=== PATIENT | female | born 1940 | race Caucasian/White ===

== ENCOUNTER 2018-10-22 21:31 | Inpatient (IN) ==
[2018-10-22] MEDS ORDERED: ONDANSETRON 4 MG/2 ML VIAL IV ONE (21:46)
[2018-10-22] MEDS ORDERED: 0.9 % SODIUM CHLORIDE 1,000 ML IV ONE (21:46)
--- NOTE | 2018-10-22 22:02 | Emergency Department Note ---
Abdominal Pain HPI - General Chief Complaint: Constipation Stated Complaint: suspects constipation Time Seen by Provider: 10/22/18 21:46 Source: patient, family Mode of arrival: wheelchair Limitations: no limitations - History of Present Illness HPI Narrative: 78-year-old female with a one-week history of constipation belly pain. She is a diabetic and blood sugars have been in the 150s and 60s at home, here is 213. No fever but is having nausea and vomiting. Not much appetite. Tried milk of magnesia without success - Related Data Home Medications Medication Instructions Recorded Confirmed butalbital-acetaminophen PO PRN 03/28/18 09/19/18 Previous Rx's Medication Instructions Recorded blood-glucose meter See Dose Instructions .ROUTE 02/17/18 .MEDSUPPLY #1 each lancets See Dose Instructions .ROUTE 02/17/18 .MEDSUPPLY #100 each metoprolol succinate ER 50 mg 50 mg PO BID #180 tab 03/08/18 tablet,extended release 24 hr warfarin 5 mg tablet See Rx Instructions .ROUTE 08/17/18 .COMPLEX #30 tab blood sugar diagnostic strips 1 strip MISCELLANE .daily #100 08/26/18 strip empagliflozin 25 mg tablet 25 mg PO QAM #30 tab 09/19/18 doxepin 10 mg capsule 10 mg PO QHS #30 cap 10/18/18 Allergies Allergy/AdvReac Type Severity Reaction Status Date / Time codeine AdvReac Mild Agitated Verified 10/22/18 21:39 Review of Systems All systems ED: reviewed and negative except as stated. Abdominal Pain PMH - Past Medical History Attestation: Yes: The following information was validated with the patient. PMF Narrative: Family History (Last Reviewed 05/10/18 @ 15:42 by Young Blount MD) Father Type 2 diabetes mellitus Heart disease Stroke Sister Cancer Brother Cancer Medical History (Last Reviewed 05/10/18 @ 15:42 by Young Blount MD) Menopausal vasomotor syndrome (Chronic) Diverticulitis (Acute) Depression (Chronic) Type 2 diabetes mellitus, without long-term current use of insulin (Chronic) Acute ischemic colitis (Acute) Deep vein thrombosis (DVT) (Chronic) Diabetes mellitus (Chronic) H/O unilateral nephrectomy (Resolved) [facility] current use of anticoagulant therapy (Chronic) Essential hypertension (Chronic) Tobacco use disorder (Chronic) Chronic obstructive pulmonary disease (Chronic) Deep vein thrombosis (Chronic) Hormone replacement therapy (Chronic) Migraine (Chronic) Factor V Leiden (Chronic) Degenerative arthritis (Chronic) Dyslipidemia (Chronic) Nonorganic sleep disorder (Chronic) Edema (Chronic) Solitary kidney (Chronic) Low back pain (Chronic) Cervical pain (neck) (Chronic) 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) High risk medication use (Chronic) Breast lump (Resolved) Cyst of left kidney (Resolved) Screening for osteoporosis (Resolved) Past Surgical History (Last Reviewed 05/10/18 @ 15:42 by Young Blount MD) S/P total knee arthroplasty (Acute) S/P CHAPO-BSO (Resolved) H/O repair of left rotator cuff (Resolved) History of hernia repair (Resolved) Hx of colonoscopy (Resolved 10/17/12) Previous back surgery (Resolved) Hx of arthroscopy of right knee (Resolved) History of arthroplasty of left knee (Resolved) History of total hysterectomy (Acute) History of cataract surgery (Chronic ~04/2016) - Social History Smoking status: Former smoker Physical Exam Overweight female no acute distress. No cephalic atraumatic. Conjunctive are clear sclerae nonicteric. No nasal discharge or congestion. Oropharynx pink and moist. Dentures. Neck is supple without lymphadenopathy thyromegaly or carotid bruit. Heart is regular rate and rhythm no murmur appreciated. Lungs are clear to auscultation bilaterally without wheezes rales rhonchi or respiratory distress. Abdomen is soft but tender especially in the epigastric area. No rigidity or guarding. No pedal edema. Alert oriented able to answer questions appropriately Limitations: no limitations Course Vital Signs Temperature 97.4 F 10/22/18 21:35 Pulse Rate 101 H 10/22/18 21:35 Respiratory Rate 20 10/22/18 21:35 Blood Pressure 128/77 10/22/18 21:35 Pulse Oximetry (%) 93 10/22/18 21:35 Temperature 97.4 F 10/22/18 21:35 Pulse Rate 88 10/22/18 23:32 Respiratory Rate 23 H 10/22/18 22:27 Blood Pressure 133/70 10/22/18 23:32 Pulse Oximetry (%) 91 10/22/18 23:32 Abdominal Pain - Lab Data Lab results reviewed: Yes I reviewed the patient's lab results. Result diagrams: 10/22/18 21:50 10/22/18 21:50 Lab Results 10/22/18 10/22/18 10/22/18 Range/Units 21:50 21:50 21:50 WBC 17.3 H (4.5-11.0) K/mcL RBC 5.48 H (4.00-5.20) M/mcL Hgb 15.2 H (12.0-15.0) g/dL Hct 45.0 (36.0-48.0) % MCV 82.1 (80.0-100.0) fL MCH 27.7 (26.0-34.0) pg MCHC 33.7 (31.0-36.0) g/dL RDW 14.1 (11.5-14.5) % Plt Count 365 (140-440) K/mcL MPV 10.2 (7.4-10.4) fL Gran % 87.9 H (38.0-78.0) % Lymph % (Auto) 8.3 L (15.5-49.0) % [place] % (Auto) 2.4 (1.0-12.0) % Eos % (Auto) 0.5 (0.0-7.0) % Baso % (Auto) 0.9 (0.0-2.0) % Gran # 15.2 H (1.8-8.0) K/mcL Lymph # (Auto) 1.4 L (1.5-4.8) K/mcL [place] # (Auto) 0.4 (0.1-0.9) K/mcL Eos # (Auto) 0.1 (0.0-0.7) K/mcL Baso # (Auto) 0.2 (0.0-0.3) K/mcL PT 23.2 H (11.9-14.5) sec INR 2.1 H (0.9-1.1) Sodium 133 (133-145) mmol/L Potassium 4.1 (3.3-5.1) mmol/L Chloride 93 L (96-108) mmol/L Carbon Dioxide 18 L (22-30) mmol/L Anion Gap 22.0 H (8-16) BUN 21 (8-23) mg/dl Creatinine 1.2 H (0.6-1.1) mg/dl GFR Calculation 44 Glucose 219 H (70-105) mg/dL Calcium 9.5 (8.6-10.4) mg/dl Total Bilirubin 0.7 (0.0-1.0) mg/dL AST 16 (0-37) U/l ALT 15 (0-40) U/l Alkaline Phosphatase 137 H (39-117) U/L Total Protein 8.3 (5.9-8.4) gm/dL Albumin 3.8 (3.2-5.2) gm/dL Globulin 4.5 H (2.2-3.7) gm/dL Albumin/Globulin Ratio 0.8 L (1.0-2.3) Amylase 28 (28-100) U/L Lipase 26 (7-60) U/L Urine Color Urine Appearance Urine pH (5.0-9.0) Ur Specific [place] (1.000-1.035) Urine Protein (NEG) mg/dL Urine Glucose (UA) (NEG) mg/dL Urine Ketones (NEG) mg/dL Urine Occult Blood (<0.03) mg/dL Urine Nitrate (NEG) Urine Bilirubin (NEG) mg/dL Urine Urobilinogen (NEG) mg/dL Ur Leukocyte Esterase (NEG) /uL Urine RBC (0-1) /hpf Urine WBC (0-4) /hpf Ur Squamous Epith Cells (0-4) /hpf Amorphous Crystals (0) /hpf Urine Bacteria (0) /hpf Urine Mucus (0) /hpf Ur Culture Indicated? 10/23/18 Range/Units 00:05 WBC (4.5-11.0) K/mcL RBC (4.00-5.20) M/mcL Hgb (12.0-15.0) g/dL Hct (36.0-48.0) % MCV (80.0-100.0) fL MCH (26.0-34.0) pg MCHC (31.0-36.0) g/dL RDW (11.5-14.5) % Plt Count (140-440) K/mcL MPV (7.4-10.4) fL Gran % (38.0-78.0) % Lymph % (Auto) (15.5-49.0) % [place] % (Auto) (1.0-12.0) % Eos % (Auto) (0.0-7.0) % Baso % (Auto) (0.0-2.0) % Gran # (1.8-8.0) K/mcL Lymph # (Auto) (1.5-4.8) K/mcL [place] # (Auto) (0.1-0.9) K/mcL Eos # (Auto) (0.0-0.7) K/mcL Baso # (Auto) (0.0-0.3) K/mcL PT (11.9-14.5) sec INR (0.9-1.1) Sodium (133-145) mmol/L Potassium (3.3-5.1) mmol/L Chloride (96-108) mmol/L Carbon Dioxide (22-30) mmol/L Anion Gap (8-16) BUN (8-23) mg/dl Creatinine (0.6-1.1) mg/dl GFR Calculation Glucose (70-105) mg/dL Calcium (8.6-10.4) mg/dl Total Bilirubin (0.0-1.0) mg/dL AST (0-37) U/l ALT (0-40) U/l Alkaline Phosphatase (39-117) U/L Total Protein (5.9-8.4) gm/dL Albumin (3.2-5.2) gm/dL Globulin (2.2-3.7) gm/dL Albumin/Globulin Ratio (1.0-2.3) Amylase (28-100) U/L Lipase (7-60) U/L Urine Color Yellow Urine Appearance Hazy Urine pH 5.0 (5.0-9.0) Ur Specific [place] 1.025 (1.000-1.035) Urine Protein Neg (NEG) mg/dL Urine Glucose (UA) >=500 A (NEG) mg/dL Urine Ketones 20 A (NEG) mg/dL Urine Occult Blood 0.03 A (<0.03) mg/dL Urine Nitrate Pos A (NEG) Urine Bilirubin Neg (NEG) mg/dL Urine Urobilinogen Neg (NEG) mg/dL Ur Leukocyte Esterase 25 A (NEG) /uL Urine RBC 1 (0-1) /hpf Urine WBC 12 H (0-4) /hpf Ur Squamous Epith Cells < 1 (0-4) /hpf Amorphous Crystals Few A (0) /hpf Urine Bacteria Few A (0) /hpf Urine Mucus Few (0) /hpf Ur Culture Indicated? Yes - Radiology Data Radiology results reviewed: Yes I reviewed the patient's radiology results. X-ray of the abdomen shows small stretch of dilated small bowel with air-fluid level. CT scan ordered to further sort this out CT scan of the abdomen pelvis without contrast shows inflammation around about an 8 cm segment of sigmoid colon which likely is diverticulitis. Adjacent abscess noted approximately 2 x 2 cm with localized perforation. No free air is noted. Concern for partial obstruction proximal to this. See full report Disposition Pt seen by TRADING FLOOR OPERATOR/PA only: No Clinical Impression: Diverticulitis, Perforation of colon, Colonic diverticular abscess, Colonic pseudoobstruction Summary: Workup ordered with laboratory and x-ray. Treatment started with IV fluids and Zofran X-ray shows dilated small bowel loops with air-fluid levels so CT scan with contrast is initially ordered. However patient has only one kidney and so this is changed to without contrast CT scan shows concerning findings above. I did discuss this case with Dr. Young Blount, general surgeon, who agreed to accept patient for further evaluation and management in the hospital. He recommended we make her n.p.o. and start antibi otics for the diverticulitis-metronidazole and fluoroquinolone. We will keep her n.p.o. except for ice chips and popsicles. Hold her Coumadin. I wrote transition orders Disposition: Xfer As Inpt ([facility]) Condition: Serious Referrals: Marcus Russo MD [Primary Care Provider] -
[2018-10-22 23:12] LABS: Basophils # (Auto) 0.2 K/mcL (0.0-0.3); Basophils % (Auto) 0.9 % (0.0-2.0); Eosinophils # (Auto) 0.1 K/mcL (0.0-0.7); Eosinophils % (Auto) 0.5 % (0.0-7.0); Granulocytes % (Auto) 87.9 % (38.0-78.0); Lymphocytes # (Auto) 1.4 K/mcL (1.5-4.8); Lymphocytes % (Auto) 8.3 % (15.5-49.0); Mean Cell Volume 82.1 fL (80.0-100.0); Mean Corpuscular HGB Conc 33.7 g/dL (31.0-36.0); Monocytes # (Auto) 0.4 K/mcL (0.1-0.9); Monocytes % (Auto) 2.4 % (1.0-12.0); Platelet Count 365 K/mcL (140-440); RBC 5.48 M/mcL (4.00-5.20); Red Cell Distribution Width 14.1 % (11.5-14.5)
[2018-10-22 23:28] LABS: ALT/SGPT 15 U/l (0-40); Albumin 3.8 gm/dL (3.2-5.2); Albumin/Globulin Ratio 0.8 (1.0-2.3); Alkaline Phosphatase 137 U/L (39-117); Amylase 28 U/L (28-100); Blood Urea Nitrogen 21 mg/dl (8-23); Lipase 26 U/L (7-60)
[2018-10-23 00:51] LABS: Appearance,Urine HAZY; Bacteria,Urine FEW /hpf (0); Bilirubin,Urine NEG (NEG); Color,Urine YELLOW; Glucose,Urine (UA) >=500 mg/dL (NEG); Leukocyte Esterase,Urine 25 /uL (NEG); Mucus,Urine FEW /hpf (0); Protein,Urine NEG (NEG); Specific Gravity,Urine 1.025 (1.000-1.035); Urine Amorphous Crystals FEW /hpf (0); Urine Blood 0.03 mg/dL (<0.03); Urine RBC 1 /hpf (0-1); Urine Squamous Epithelial Cell < 1 /hpf (0-4); Urine WBC 12 /hpf (0-4); Urobilinogen,Urine NEG (NEG)
[2018-10-23] MEDS ORDERED: PROMETHAZINE 25 MG/ML VIAL IM PRN (01:19)
[2018-10-23] MEDS ORDERED: metroNIDAZOLE 500 MG/100 ML BAG IV SCH (01:30)
[2018-10-23] MEDS: 0.9 % SODIUM CHLORIDE 1,000 ML IV SCH ×4 (01:30→21:12)
[2018-10-23] MEDS: ONDANSETRON 4 MG/2 ML VIAL IV PRN ×2 (01:45→08:25)
[2018-10-23] MEDS: LEVOFLOXACIN 500 MG/100 ML BAG IV SCH ×2 (03:03→17:57)
[2018-10-23] MEDS: DOXEPIN 10 MG CAPSULE PO SCH ×2 (03:06→20:53)
--- NOTE | 2018-10-23 07:53 | Cat Scan Report ---
CLINICAL INFORMATION: Constipation COMPARISON: Plain film examination dated 10/22/2018. Previous CT scan dated 04/01/2018. TECHNIQUE: Axial images were obtained through the abdomen and pelvis. Sagittally and coronally reformatted images. The patient refused intravenous contrast material. FINDINGS: Dilated ascending colon, transverse colon, descending colon. The colon is dilated and fluid-filled. No evidence for appendicitis. There is focal abnormality of the mid sigmoid colon. There are some diverticula within the sigmoid colon there is a masslike density within the mid sigmoid colon and pericolonic inflammatory change. There is some gas which may be intramural. Findings may be due to diverticulitis but malignancy is not excluded. Follow-up examination is recommended. Follow-up CT scan with intravenous and oral contrast material may be helpful. Colonoscopy would also be appropriate. There is no discrete abscess. There is no pneumoperitoneum. No significant free pelvic fluid. There is gas within the urinary bladder. Urinary bladder is mildly distended. Clinical correlation for previous catheterization recommended. In the absence of catheterization a colovesical fistula is possible. Small bowel is mildly prominent and fluid-filled. Findings are consistent with colonic obstruction at the level of the sigmoid colon. Lung bases are negative. No parenchymal infiltrate or mass. Previous left nephrectomy. There is a right upper pole renal cyst. This is unchanged since 04/01/2018. Right renal collecting system is prominent. The proximal right ureter is dilated. An obstructing ureteral stone is not identified. Ureter may be obstructed due to the localized pelvic inflammatory process. Follow-up examination is recommended. There is a single 11 mm cyst in the right lobe of the liver. Liver is otherwise negative. Normal smooth contour. There is no ascites. Gallbladder is present. No dilated bile ducts. Spleen is not enlarged. Pancreas is negative. No pancreatic mass. Adrenal glands are negative. Uterus is not well visualized. No adnexal mass identified. There is an abdominal aortic aneurysm. This is infrarenal. Maximum AP diameter measures 4.3 cm. This is unchanged since 04/01/2018. Multilevel degenerative disc disease. No lumbar compression fractures. No lytic lesions. Sacrum and pelvis are negative. No evidence for metastatic disease. Patient has undergone previous lumbar surgery with posterior spinal fusion. Degenerative disease in both hips. Previous anterior abdominal wall hernia repair. No recurrent hernia identified. Examination was initially interpreted by [facility] IMPRESSION: 1. Colonic obstruction due to a localized abnormality in the sigmoid colon. Findings may be due to severe diverticulitis but underlying malignancy is not excluded. Short-term follow-up CT scan or colonoscopy recommended. 2. Gas within the urinary bladder may indicate colovesical fistula 3. Abdominal aortic aneurysm, unchanged since 04/01/2018 4. Previous left nephrectomy 5. Dilated right intrarenal collecting system and ureter. This may be obstructed due to inflammatory process within the pelvis. Follow-up is recommended. The exam was performed using radiation dose optimization techniques including, but not limited to, automated exposure control, adjustment of the mA and/or kV according to patient size and use of iterative reconstruction technique. Interpreted and Authenticated by: Ronald Shipman 10/23/18
--- NOTE | 2018-10-23 08:08 | XRay Report ---
CLINICAL INFORMATION: Abdominal pain TECHNIQUE: Supine and upright abdomen COMPARISON: Previous CT scan dated 04/01/2018 FINDINGS: Prominent gas within the transverse colon. Transverse colon is not significantly dilated. Transverse colon measures 5 cm in cross-sectional diameter. There is no dilated gas-filled small bowel. Bowel gas pattern is considered nonspecific. Partially obstructing distal colonic abnormality is possible. CT scan is recommended. No pneumoperitoneum. No biliary or portal venous gas. No pneumatosis. IMPRESSION: 1. Somewhat prominent gas-filled transverse colon with air-fluid level. 2. Distal colonic abnormality is possible. CT scan recommended Interpreted and Authenticated by: Ronald Shipman 10/23/18
[2018-10-23] MEDS: metroNIDAZOLE 500 MG/100 ML BAG IV SCH ×3 (08:28→21:01)
[2018-10-23] MEDS ORDERED: 0.9 % SODIUM CHLORIDE 250 ML IV SCH (13:15)
--- NOTE | 2018-10-23 13:27 | General Surg History&Physical ---
History of Present Illness Patient information: Note initiated : 10/23/18 at 1:17 pm Service Date, if different from initiated Date: [] Patient: Brit Alonzo 78 y/o F admitted on 10/23/18 for suspects constipation. Chief Complaint: [] HPI: Ms. Alonzo is a 78 year old F admitted with sigmoid colon obstruction due to probable diverticulitis. Patient has had diverticulitis for quite some time. She presented in November 2017 with abdominal pain and suggestion of pneumaturia and air per vagina. She was noted to have diverticulitis of sigmoid colon with possible connection to the bladder apex of the vagina. She was advised to have operative therapy at that time wished to wait. She was treated nonoperatively and states that she has been doing very well. She has been having urinary incontinence and urgency over the past 4 weeks. On Wednesday she developed severe abdominal pain followed by nausea with vomiting. She had not had a bowel movement for many days. She took milk of magnesia 4 and other [id number] laxatives without results. She also had rectal suppository without results. She has noted increased bloating and distention of her abdomen over the past week. She has had minimal by mouth intake because of tightness of her abdomen. She was seen in the emergency room where it was noted that she has significant dilation of her entire colon leading down to his sigmoid. Her small bowel is not significantly dilated. There was also air in the bladder. CT suggests an inflammatory segment of sigmoid colon with surrounding tissue edema with decompressed distal sigmoid colon and rectum. Patient is admitted and will be treated with antibiotics. She's been on chronic Coumadin therapy so her PT/INR will be corrected and she is counseled for laparotomy with sigmoid colon resection, colostomy and bladder repair in the morning. Past History Past medical history: Diabetes mellitus2 Leiden factor V deficiency with DVT Hypertension Chronic obstructive lung disease Degenerative arthritis Chronic sleep disorder Cervical disc disease Past surgical history: Total knee arthroplasty Total abdominal hysterectomy with bilateral salpingo-oophorectomy Left rotator cuff repair Incisional hernia repair Lumbar back surgery History of cataract surgery Past family history: Diabetes mellitus History of coronary artery disease History of stroke Past social history: Former smoker Denies alcohol use Denies drug use Medications and Allergies Home Medications Medication Instructions Recorded Confirmed Type metoprolol succinate ER 50 mg 50 mg PO BID #180 tab 03/08/18 10/23/18 Rx tablet,extended release 24 hr butalbital-acetaminophen PO PRN 03/28/18 09/19/18 History warfarin 5 mg tablet See Rx Instructions .ROUTE 08/17/18 10/23/18 Rx .COMPLEX #30 tab blood sugar diagnostic strips 1 strip MISCELLANE .daily #100 08/26/18 10/23/18 Rx strip empagliflozin 25 mg tablet 25 mg PO QAM #30 tab 09/19/18 10/23/18 Rx doxepin 10 mg capsule 10 mg PO QHS #30 cap 10/18/18 10/23/18 Rx Blood-Glucose Meter [Contour] 1 each .ROUTE .MEDSUPPLY 10/23/18 10/23/18 History Lancets 1 each .ROUTE .MEDSUPPLY 10/23/18 10/23/18 History Allergies Allergy/AdvReac Type Severity Reaction Status Date / Time codeine AdvReac Mild Agitated Verified 10/22/18 21:39 Exam Temp Pulse Resp BP Pulse Ox 97.8 F 72 14 106/56 94 10/23/18 12:00 10/23/18 12:00 10/23/18 12:00 10/23/18 12:00 10/23/18 12:00 - General physical appearance well developed, well nourished, no distress, moderate pain, obese - Eyes PERRL, normal ocular movement - ENT normal pinna, normal nares, normal mucosa, no hearing loss, no congestion - Head Head exam IM: Present: atraumatic, normal inspection, normocephalic - Neck no masses, no bruits, trachea midline, no lymphadenopathy, no venous distension - Cardiovascular Cardiovascular exam IM: Present: normal rate and rhythm, RRR, +S1, +S2. Absent: JVD, tachycardia - Respiratory normal expansion, normal respiratory effort, clear to auscultation - Abdomen Abdomen: Present: soft, non tender, bowel sounds, distended (distended abdomen mild diffuse tenderness; hyperactive bowel sounds with borborygmi) Hernia: Present: none - Genitourinary Present: normal external genitalia - Integumentary Present: no rash, no growths, no abnormal pigmentation - Neurologic Present: normal coordination, normal sensation - Musculoskeletal Present: normal gait, normal posture - Psychiatric Present: oriented to time, oriented to person, oriented to place, speech is normal, memory intact Assessment and Plan (1) Acute diverticulitis of intestine Patient treated with IV antibiotics Sigmoid colon resection in the morning Status: Acute (2) Colon obstruction Counseled for sigmoid colon resection in the morning Status: Acute (3) Fistula, 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 (6) Essential hypertension Status: Chronic Comment: Chronically abnormal ECG; cardiolite normal in 2006. (7) Chronic obstructive pulmonary disease Status: Chronic Comment: Continued tobacco use and probable chronic bronchitiis. Hx of positive PPD at age 18; last chest x-ray 08/2012. Qualifiers: COPD type: emphysema Emphysema type: panlobular Qualified Code(s): J43.1 - Panlobular emphysema (8) Factor V Leiden We will bridge with Lovenox after surgery is completed Status: Chronic Comment: Hx of recurrent with positive Factor V Leiden-chronic anticoagulation.
[2018-10-23] MEDS: PHYTONADIONE 10 MG/ML AMPUL SQ SCH (14:16)
[2018-10-24] MEDS: PHYTONADIONE 10 MG/ML AMPUL SQ SCH (02:10)
[2018-10-24] MEDS: 0.9 % SODIUM CHLORIDE 1,000 ML IV SCH ×3 (04:43→20:45)
[2018-10-24] MEDS: metroNIDAZOLE 500 MG/100 ML BAG IV SCH ×3 (04:55→22:49)
[2018-10-24 06:06] LABS: Basophils # (Auto) 0 K/mcL (0.0-0.3); Basophils % (Auto) 0.4 % (0.0-2.0); Eosinophils # (Auto) 0.1 K/mcL (0.0-0.7); Eosinophils % (Auto) 0.7 % (0.0-7.0); Granulocytes % (Auto) 86.1 % (38.0-78.0); Lymphocytes # (Auto) 1.1 K/mcL (1.5-4.8); Lymphocytes % (Auto) 8.5 % (15.5-49.0); Mean Cell Volume 84.4 fL (80.0-100.0); Mean Corpuscular HGB Conc 32.2 g/dL (31.0-36.0); Monocytes # (Auto) 0.6 K/mcL (0.1-0.9); Monocytes % (Auto) 4.3 % (1.0-12.0); Platelet Count 310 K/mcL (140-440); RBC 4.77 M/mcL (4.00-5.20); Red Cell Distribution Width 14.7 % (11.5-14.5)
[2018-10-24 06:41] LABS: ALT/SGPT 13 U/l (0-40); Albumin/Globulin Ratio 0.9 (1.0-2.3); Alkaline Phosphatase 60 U/L (39-117); Bilirubin,Direct < 0.2 mg/dL (0.0-0.3); Blood Urea Nitrogen 13 mg/dl (8-23); Gamma Glutamyl Transpeptidase 17 U/L (5-36); Uric Acid 6.9 mg/dL (2.5-8.0)
[2018-10-24] MEDS: LEVOFLOXACIN 500 MG/100 ML BAG IV SCH (10:05)
[2018-10-24] MEDS ORDERED: PHYTONADIONE 10 MG/ML AMPUL SQ ONE (10:58)
[2018-10-24] MEDS ORDERED: 0.9 % SODIUM CHLORIDE 250 ML IV SCH ×2 (11:00→16:35)
[2018-10-24] MEDS ORDERED: KETAMINE 100 MG/ML ML IV ONE (13:15)
[2018-10-24] MEDS ORDERED: ESMOLOL 100 MG/10 ML VIAL IV ONE (13:15)
[2018-10-24] MEDS ORDERED: GLYCOPYRROLATE 0.2 MG/ML VIAL IV ONE (13:15)
[2018-10-24] MEDS ORDERED: DEXAMETHASONE 4 MG/ML VIAL IV ONE (13:15)
[2018-10-24] MEDS ORDERED: SUCCINYLCHOLINE 20 MG/ML ML IV ONE (13:15)
[2018-10-24] MEDS ORDERED: HYDROmorphone 2 MG/ML VIAL IV ONE (13:15)
[2018-10-24] MEDS ORDERED: PROPOFOL 200 MG/20 ML VIAL IV ONE (13:15)
[2018-10-24] MEDS ORDERED: ROCURONIUM 10 MG/ML ML IV ONE (13:15)
[2018-10-24] MEDS ORDERED: fentaNYL 250 MCG/5 ML VIAL IV ONE (13:15)
[2018-10-24] MEDS ORDERED: LIDOCAINE HCL/PF 100 MG/5 ML SYRINGE IV ONE (13:15)
[2018-10-24] MEDS ORDERED: NEOSTIGMINE 1 MG/ML VIAL IV ONE (13:15)
[2018-10-24] MEDS ORDERED: MIDAZOLAM 2 MG/2 ML VIAL IV ONE (13:15)
[2018-10-24] MEDS ORDERED: PROMETHAZINE 25 MG/ML VIAL IV PRN ×2 (14:33→17:06)
[2018-10-24] MEDS ORDERED: NALOXONE HCL 0.4 MG/ML VIAL IV PRN (14:33)
[2018-10-24] MEDS ORDERED: MEPERIDINE 25 MG/ML SYRINGE IV PRN (14:33)
[2018-10-24] MEDS ORDERED: HYDROmorphone 2 MG/ML VIAL IV PRN (14:33)
[2018-10-24] MEDS ORDERED: METOPROLOL TARTRATE 5 MG/5 ML VIAL IV PRN (14:33)
[2018-10-24] MEDS ORDERED: diphenhydrAMINE 50 MG/ML VIAL IV PRN (14:33)
[2018-10-24] MEDS ORDERED: METHOCARBAMOL 1,000 MG/10 ML VIAL IV PRN (14:33)
[2018-10-24] MEDS ORDERED: IPRATROPIUM/ALBUTEROL 3 ML AMPUL.NEB NEB PRN (14:33)
[2018-10-24] MEDS ORDERED: ePHEDrine 50 MG/ML AMPUL IV PRN (14:33)
[2018-10-24] MEDS ORDERED: ATROPINE SULFATE 0.4 MG/ML VIAL IV PRN (14:33)
[2018-10-24] MEDS ORDERED: fentaNYL 100 MCG/2 ML VIAL IV PRN (14:33)
[2018-10-24] MEDS ORDERED: ACETAMINOPHEN 1,000 MG/100 ML BOTTLE IV ONE (14:33)
[2018-10-24] MEDS ORDERED: ONDANSETRON 4 MG/2 ML VIAL IV PRN ×2 (14:33→16:35)
[2018-10-24] MEDS ORDERED: FLUMAZENIL 0.1 MG/ML ML IV PRN (14:33)
[2018-10-24] MEDS ORDERED: PROMETHAZINE 25 MG/ML VIAL IM PRN ×2 (14:33→16:35)
[2018-10-24] MEDS ORDERED: LACTATED RINGERS 1,000 ML IV SCH (14:45)
--- NOTE | 2018-10-24 15:50 | Brief Operative Note ---
Date of procedure: 10/24/18 Pre-op diagnosis: sigmoid colon obstruction Post-op diagnosis: other (massive phlegmon of pelvis with abscess and sigmoid colon obstruction) Procedure: laparotomy with drainage of pelvic abscess and sigmoid colostomy with Hartmanns pouch Grafts/Implants: No (chicho drain x 3) Anesthesia: GETA Findings: extensive phlegmon of sigmoid colon,,small bowel and bladder with large abscess between coloon and bladder and total obstruction of distal sigmoid at peritoneal reflection;massive dilation of proximal colon; decompressed small bowel Complications: none Surgeon: Angelia Blount Estimated blood loss (cc): 100 Specimens Removed/Pathology: none sent Condition: stable Disposition: PACU
[2018-10-24] MEDS ORDERED: BACITRACIN 50,000 UNIT VIAL IR ONE (16:07)
[2018-10-24] MEDS ORDERED: ACETAMINOPHEN 1,000 MG in PREMIX 1 BAG IV SCH (16:35)
[2018-10-24] MEDS: PIPERACILLIN SODIUM/TAZOBACTAM 3.375 GM in DEXTROSE 5% IN WATER 50 ML IV SCH (20:10)
[2018-10-24] MEDS: PANTOPRAZOLE 40 MG VIAL IV SCH (20:10)
[2018-10-24] MEDS: METOCLOPRAMIDE 10 MG/2 ML VIAL IV SCH (20:11)
[2018-10-24] MEDS: HYDROmorphone 2 MG/ML VIAL IV PRN (22:48)
[2018-10-24] MEDS: ACETAMINOPHEN 1,000 MG/100 ML BOTTLE IV SCH (22:50)
[2018-10-25] MEDS: METOCLOPRAMIDE 10 MG/2 ML VIAL IV SCH ×5 (00:29→23:26)
[2018-10-25] MEDS: PIPERACILLIN SODIUM/TAZOBACTAM 3.375 GM in DEXTROSE 5% IN WATER 50 ML IV SCH ×5 (00:29→23:26)
[2018-10-25] MEDS: ACETAMINOPHEN 1,000 MG/100 ML BOTTLE IV SCH ×2 (04:23→09:40)
[2018-10-25] MEDS: 0.9 % SODIUM CHLORIDE 1,000 ML IV SCH ×4 (05:01→22:26)
[2018-10-25] MEDS: metroNIDAZOLE 500 MG/100 ML BAG IV SCH ×3 (05:01→22:29)
[2018-10-25] MEDS: HYDROmorphone 2 MG/ML VIAL IV PRN ×5 (05:49→22:29)
[2018-10-25 07:10] LABS: Basophils # (Auto) 0 K/mcL (0.0-0.3); Basophils % (Auto) 0 % (0.0-2.0); Eosinophils # (Auto) 0 K/mcL (0.0-0.7); Eosinophils % (Auto) 0 % (0.0-7.0); Granulocytes % (Auto) 92.6 % (38.0-78.0); Lymphocytes # (Auto) 0.8 K/mcL (1.5-4.8); Lymphocytes % (Auto) 4.4 % (15.5-49.0); Mean Cell Volume 85.7 fL (80.0-100.0); Mean Corpuscular HGB Conc 31.9 g/dL (31.0-36.0); Monocytes # (Auto) 0.5 K/mcL (0.1-0.9); Platelet Count 320 K/mcL (140-440); RBC 4.19 M/mcL (4.00-5.20); Red Cell Distribution Width 15.2 % (11.5-14.5)
[2018-10-25 07:31] LABS: ALT/SGPT 9 U/l (0-40); Albumin 2.5 gm/dL (3.2-5.2); Albumin/Globulin Ratio 0.8 (1.0-2.3); Alkaline Phosphatase 52 U/L (39-117); Bilirubin,Direct 0.6 mg/dL (0.0-0.3); Blood Urea Nitrogen 18 mg/dl (8-23); Gamma Glutamyl Transpeptidase 15 U/L (5-36); Uric Acid 6.6 mg/dL (2.5-8.0)
[2018-10-25] MEDS: PANTOPRAZOLE 40 MG VIAL IV SCH ×2 (07:32→18:30)
[2018-10-25] MEDS: ENOXAPARIN 30 MG/0.3 ML SYRINGE SQ SCH (09:40)
[2018-10-25] MEDS ORDERED: LEVOFLOXACIN 500 MG/100 ML BAG IV SCH (10:00)
--- NOTE | 2018-10-25 18:13 | General Surgery Progress Note ---
Subjective Patient reports: feels better, still having pain, flatus, bowel movement, afebrile Narrative: Note initiated : 10/25/18 at 6:13 pm Service Date, if different from initiated Date: [] Patient: Brit Alonzo 78 y/o F admitted on 10/23/18 for Exploratory Laparotomy:poss Colectomy with . Chief Complaint: [Patient is well. She had an uneventful night. She is afebrile. Her pain is controlled with resident medications. She appears to be mildly depressed. She has had some gas and stool output through her stoma and stoma appears to be healthy. White blood count 18.1, hemoglobin 11.5, potassium 5.1, BUN 18, creatinine 0.9. Discussed with patient in detail The operative findings and advised her that I could not do a full resection because of the massive amount of inflammation and phlegmon that was encountered. The plan is to get her over this and do primary resection and anastomosis in 3 months.] Objective Temp Pulse Resp BP Pulse Ox 97.7 F 93 H 12 108/63 92 10/25/18 16:00 10/25/18 16:00 10/25/18 16:00 10/25/18 16:00 10/25/18 16:00 - Additional Data Intake & Output - Last 24 hours: Intake & Output 10/23/18 10/24/18 10/25/18 10/26/18 05:59 05:59 05:59 05:59 Intake Total 1348 4074 4818 1300 Output Total 850 1190 Balance 1348 3224 3628 1300 Weight 209 lb 8 oz 208 lb 8 oz 211 lb - General physical appearance well developed, well nourished, no distress, moderate distress, moderate pain - Eyes PERRL, normal ocular movement - ENT normal pinna, normal nares, normal mucosa, no congestion, decreased hearing - Neck no masses, no bruits, trachea midline, no lymphadenopathy, no venous distension - Respiratory normal expansion, normal respiratory effort, clear to auscultation, other (right breast sounds bilaterally without rales, rubs, rhonchi or wheezes) - Cardiovascular Cardiovascular exam: Present: normal rate and rhythm, RRR, +S1, +S2. Absent: JVD, tachycardia - Abdomen tender, distended (abdomen is distended; the rectus bowel sounds; stone appears to be healthy with some gas in stoma appliance as well as stool; incision looks good) - Integumentary no rash, no growths, no abnormal pigmentation - Neurologic normal coordination, normal sensation - Psychiatric oriented to time, oriented to person, oriented to place, speech is normal, memory intact - Labs 11/04/18 04:40 11/04/18 04:40 Diabetes panel 10/25/18 Range/Units 05:21 Sodium 140 (133-145) mmol/L Potassium 5.1 (3.3-5.1) mmol/L Chloride 106 (96-108) mmol/L Carbon Dioxide 15 L (22-30) mmol/L BUN 18 (8-23) mg/dl Creatinine 0.9 (0.6-1.1) mg/dl Glucose 170 H (70-105) mg/dL Calcium 8.6 (8.6-10.4) mg/dl AST 14 (0-37) U/l ALT 9 (0-40) U/l Alkaline Phosphatase 52 (39-117) U/L Total Protein 5.5 L (5.9-8.4) gm/dL Albumin 2.5 L (3.2-5.2) gm/dL Triglycerides 53 (<150) mg/dl Calcium panel 10/25/18 Range/Units 05:21 Calcium 8.6 (8.6-10.4) mg/dl Phosphorus 5.1 H (2.7-4.5) mg/dL Albumin 2.5 L (3.2-5.2) gm/dL Pituitary panel 10/25/18 Range/Units 05:21 Sodium 140 (133-145) mmol/L Potassium 5.1 (3.3-5.1) mmol/L Chloride 106 (96-108) mmol/L Carbon Dioxide 15 L (22-30) mmol/L BUN 18 (8-23) mg/dl Creatinine 0.9 (0.6-1.1) mg/dl Glucose 170 H (70-105) mg/dL Calcium 8.6 (8.6-10.4) mg/dl Adrenal panel 10/25/18 Range/Units 05:21 Sodium 140 (133-145) mmol/L Potassium 5.1 (3.3-5.1) mmol/L Chloride 106 (96-108) mmol/L Carbon Dioxide 15 L (22-30) mmol/L BUN 18 (8-23) mg/dl Creatinine 0.9 (0.6-1.1) mg/dl Glucose 170 H (70-105) mg/dL Calcium 8.6 (8.6-10.4) mg/dl Total Bilirubin 1.2 H (0.0-1.0) mg/dL AST 14 (0-37) U/l ALT 9 (0-40) U/l Alkaline Phosphatase 52 (39-117) U/L Total Protein 5.5 L (5.9-8.4) gm/dL Albumin 2.5 L (3.2-5.2) gm/dL Assessment and Plan (1) Acute diverticulitis of intestine Status: Acute Assessment and plan: Patient appears clinically stable. Will continue present therapy. She is advised that she will need to start ambulating tomorrow. 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 Status: Chronic (6) Essential hypertension Problem details: Chronically abnormal ECG; cardiolite normal in 2006. Status: Chronic (7) Chronic obstructive pulmonary disease Problem details: Continued tobacco use and probable chronic bronchitiis. Hx of positive PPD at age 18; last chest x-ray 08/2012. 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 Status: Chronic - Time Spent With Patient Total time spent is greater than 50% in coordination of care (as documented) at patient's floor/unit and/or counseling patient:
[2018-10-26] MEDS: 0.9 % SODIUM CHLORIDE 1,000 ML IV SCH ×5 (02:22→22:19)
[2018-10-26] MEDS: PIPERACILLIN SODIUM/TAZOBACTAM 3.375 GM in DEXTROSE 5% IN WATER 50 ML IV SCH ×4 (05:14→23:13)
[2018-10-26] MEDS: METOCLOPRAMIDE 10 MG/2 ML VIAL IV SCH ×4 (05:14→23:13)
[2018-10-26] MEDS: HYDROmorphone 2 MG/ML VIAL IV PRN ×4 (05:14→22:19)
[2018-10-26] MEDS: metroNIDAZOLE 500 MG/100 ML BAG IV SCH ×3 (05:54→21:39)
[2018-10-26 06:30] LABS: Basophils # (Auto) 0 K/mcL (0.0-0.3); Basophils % (Auto) 0.2 % (0.0-2.0); Eosinophils # (Auto) 0.1 K/mcL (0.0-0.7); Eosinophils % (Auto) 0.6 % (0.0-7.0); Granulocytes % (Auto) 89.4 % (38.0-78.0); Lymphocytes % (Auto) 6.6 % (15.5-49.0); Mean Cell Volume 85.9 fL (80.0-100.0); Mean Corpuscular HGB Conc 31.8 g/dL (31.0-36.0); Monocytes # (Auto) 0.5 K/mcL (0.1-0.9); Monocytes % (Auto) 3.2 % (1.0-12.0); Platelet Count 348 K/mcL (140-440); Red Cell Distribution Width 15.7 % (11.5-14.5)
[2018-10-26 07:13] LABS: ALT/SGPT 10 U/l (0-40); Albumin 2.4 gm/dL (3.2-5.2); Albumin/Globulin Ratio 0.8 (1.0-2.3); Alkaline Phosphatase 54 U/L (39-117); Bilirubin,Direct 0.3 mg/dL (0.0-0.3); Blood Urea Nitrogen 22 mg/dl (8-23); Gamma Glutamyl Transpeptidase 18 U/L (5-36); Uric Acid 5.4 mg/dL (2.5-8.0)
[2018-10-26] MEDS: PANTOPRAZOLE 40 MG VIAL IV SCH ×2 (07:53→17:01)
[2018-10-26] MEDS: ENOXAPARIN 30 MG/0.3 ML SYRINGE SQ SCH (09:37)
--- NOTE | 2018-10-26 15:25 | General Surgery Progress Note ---
Subjective Patient reports: feels better, pain is less, flatus, afebrile Narrative: Note initiated : 10/26/18 at 3:22 pm Service Date, if different from initiated Date: [] Patient: Birt Alonzo 78 y/o F admitted on 10/23/18 for Exploratory Laparotomy:poss Colectomy with . Chief Complaint: [patient is stable and improved. She is not as depressed as she was previously. She is having flatus from her stoma. White blood count 15.5, hemoglobin 10.4, hematocrit 32.6.] Objective Temp Pulse Resp BP Pulse Ox 97.7 F 87 16 121/69 93 10/26/18 11:54 10/26/18 11:54 10/26/18 11:54 10/26/18 11:54 10/26/18 11:54 - Additional Data Intake & Output - Last 24 hours: Intake & Output 10/24/18 10/25/18 10/26/18 10/27/18 05:59 05:59 05:59 05:59 Intake Total 4074 4818 3770 300 Output Total 850 1190 2341 750 Balance 3224 3628 1429 -450 Weight 208 lb 8 oz 211 lb 218 lb - General physical appearance moderate distress, moderate pain - Eyes PERRL, normal ocular movement - ENT normal pinna, normal nares, normal mucosa, no hearing loss, no congestion - Neck no masses, no bruits, trachea midline, no lymphadenopathy, no venous distension - Respiratory normal expansion, normal respiratory effort, clear to auscultation - Cardiovascular Cardiovascular exam: Present: normal rate and rhythm, RRR, +S1, +S2. Absent: JVD, tachycardia - Abdomen tender (moderate incisional tenderness; active bowel sounds; stoma looks good; EVIN drainage is serosanguineous) - Integumentary no rash, no growths, no abnormal pigmentation - Neurologic normal coordination, normal sensation - Musculoskeletal normal gait, normal posture - Psychiatric oriented to time, oriented to person, oriented to place, speech is normal, memory intact - Labs 10/26/18 04:42 10/26/18 04:40 Diabetes panel 10/26/18 Range/Units 04:40 Sodium 143 (133-145) mmol/L Potassium 4.6 (3.3-5.1) mmol/L Chloride 110 H (96-108) mmol/L Carbon Dioxide 21 L (22-30) mmol/L BUN 22 (8-23) mg/dl Creatinine 1.0 (0.6-1.1) mg/dl Glucose 155 H (70-105) mg/dL Calcium 8.4 L (8.6-10.4) mg/dl AST 9 (0-37) U/l ALT 10 (0-40) U/l Alkaline Phosphatase 54 (39-117) U/L Total Protein 5.4 L (5.9-8.4) gm/dL Albumin 2.4 L (3.2-5.2) gm/dL Triglycerides 68 (<150) mg/dl Calcium panel 10/26/18 Range/Units 04:40 Calcium 8.4 L (8.6-10.4) mg/dl Phosphorus 3.2 (2.7-4.5) mg/dL Albumin 2.4 L (3.2-5.2) gm/dL Pituitary panel 10/26/18 Range/Units 04:40 Sodium 143 (133-145) mmol/L Potassium 4.6 (3.3-5.1) mmol/L Chloride 110 H (96-108) mmol/L Carbon Dioxide 21 L (22-30) mmol/L BUN 22 (8-23) mg/dl Creatinine 1.0 (0.6-1.1) mg/dl Glucose 155 H (70-105) mg/dL Calcium 8.4 L (8.6-10.4) mg/dl Adrenal panel 10/26/18 Range/Units 04:40 Sodium 143 (133-145) mmol/L Potassium 4.6 (3.3-5.1) mmol/L Chloride 110 H (96-108) mmol/L Carbon Dioxide 21 L (22-30) mmol/L BUN 22 (8-23) mg/dl Creatinine 1.0 (0.6-1.1) mg/dl Glucose 155 H (70-105) mg/dL Calcium 8.4 L (8.6-10.4) mg/dl Total Bilirubin 0.6 (0.0-1.0) mg/dL AST 9 (0-37) U/l ALT 10 (0-40) U/l Alkaline Phosphatase 54 (39-117) U/L Total Protein 5.4 L (5.9-8.4) gm/dL Albumin 2.4 L (3.2-5.2) gm/dL Assessment and Plan (1) Acute diverticulitis of intestine Status: Acute Assessment and plan: Continue antibiotic therapy Check abdominal series in the morning Current Visit: Yes (2) Colon obstruction Status: Acute Current Visit: Yes (3) Fistula, colovaginal Status: Suspected Current Visit: No (4) Type 2 diabetes mellitus, without long-term current use of insulin Status: Chronic Current Visit: No (5) alf current use of anticoagulant therapy Problem details: Hx of recurrent with positive Factor V Leiden-chronic anticoa gulation. Status: Chronic Current Visit: No (6) Essential hypertension Problem details: Chronically abnormal ECG; cardiolite normal in 2006. Status: Chronic Current Visit: No (7) Chronic obstructive pulmonary disease Problem details: Continued tobacco use and probable chronic bronchitiis. Hx of positive PPD at age 18; last chest x-ray 08/2012. 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 Status: Chronic Current Visit: No - Time Spent With Patient Total time spent is greater than 50% in coordination of care (as documented) at patient's floor/unit and/or counseling patient:
[2018-10-26] MEDS: BENZOCAINE 1 SPRAY BOTTLE TOPICAL PRN ×2 (16:09→21:37)
[2018-10-27] MEDS: METOCLOPRAMIDE 10 MG/2 ML VIAL IV SCH ×3 (05:21→17:58)
[2018-10-27] MEDS: PIPERACILLIN SODIUM/TAZOBACTAM 3.375 GM in DEXTROSE 5% IN WATER 50 ML IV SCH ×3 (05:21→17:58)
[2018-10-27] MEDS: 0.9 % SODIUM CHLORIDE 1,000 ML IV SCH ×2 (05:21→13:43)
[2018-10-27] MEDS: metroNIDAZOLE 500 MG/100 ML BAG IV SCH ×3 (05:57→21:42)
--- NOTE | 2018-10-27 07:12 | XRay Report ---
CLINICAL INFORMATION: Postsurgical follow-up TECHNIQUE: Supine and upright portable abdomen COMPARISON: CT scan dated 10/23/2018 FINDINGS: There is an esophagogastric tube in the stomach. There are skin darshan in a vertical midline incision. There are surgical drains in the pelvis and there is a probable left lower quadrant ostomy There is gas within the ascending and transverse colons. No dilated gas-filled small bowel. Gas pattern appears nonspecific and nonobstructive. No significant free air. No biliary or portal venous gas. No pneumatosis. IMPRESSION: 1. Postsurgical changes as above 2. Nonspecific bowel gas pattern. No evidence for mechanical obstruction Interpreted and Authenticated by: Ronald Shipman 10/27/18
[2018-10-27] MEDS: PANTOPRAZOLE 40 MG VIAL IV SCH ×2 (07:37→17:07)
[2018-10-27] MEDS: HYDROmorphone 2 MG/ML VIAL IV PRN ×4 (07:37→19:02)
[2018-10-27] MEDS: ENOXAPARIN 30 MG/0.3 ML SYRINGE SQ SCH (09:44)
[2018-10-27 10:09] LABS: Basophils # (Auto) 0 K/mcL (0.0-0.3); Basophils % (Auto) 0.3 % (0.0-2.0); Eosinophils # (Auto) 0.2 K/mcL (0.0-0.7); Lymphocytes # (Auto) 1.4 K/mcL (1.5-4.8); Lymphocytes % (Auto) 13.4 % (15.5-49.0); Mean Cell Volume 84.8 fL (80.0-100.0); Mean Corpuscular HGB Conc 32.2 g/dL (31.0-36.0); Monocytes # (Auto) 0.5 K/mcL (0.1-0.9); Monocytes % (Auto) 4.3 % (1.0-12.0); Platelet Count 346 K/mcL (140-440); Red Cell Distribution Width 15.3 % (11.5-14.5)
[2018-10-27 10:35] LABS: ALT/SGPT 8 U/l (0-40); Albumin 2.3 gm/dL (3.2-5.2); Albumin/Globulin Ratio 0.8 (1.0-2.3); Alkaline Phosphatase 43 U/L (39-117); Bilirubin,Direct < 0.2 mg/dL (0.0-0.3); Blood Urea Nitrogen 14 mg/dl (8-23); Gamma Glutamyl Transpeptidase 16 U/L (5-36); Uric Acid 3.7 mg/dL (2.5-8.0)
--- NOTE | 2018-10-27 18:08 | General Surgery Progress Note ---
Subjective Patient reports: feels better, pain is less, flatus, no bowel movement, afebrile Narrative: Note initiated : 10/27/18 at 6:08 pm Service Date, if different from initiated Date: [] Patient: Brit Alonzo 78 y/o F admitted on 10/23/18 for Exploratory Laparotomy:poss Colectomy with . Chief Complaint: [Patient feels better. Her major pain is back pain. Her incisional pain is better. She is having small amount of flatus and liquid stool in the bag. She does not have any nausea. Abdominal distention persists. Abdominal x-rays shows decompressed small bowel with dilated colon leading up to her stoma.] Objective Temp Pulse Resp BP Pulse Ox 98.5 F 80 14 138/76 92 10/27/18 16:39 10/27/18 16:39 10/27/18 16:39 10/27/18 16:39 10/27/18 16:39 - Additional Data Intake & Output - Last 24 hours: Intake & Output 10/25/18 10/26/18 10/27/18 10/28/18 05:59 05:59 05:59 05:59 Intake Total 4818 3770 4110 1700 Output Total 1190 2341 3012 1665 Balance 3628 1429 1098 35 Weight 211 lb 218 lb 216 lb 8 oz 216 lb 8 oz - General physical appearance well developed, well nourished, no distress - Eyes PERRL, normal ocular movement - ENT normal pinna, normal nares, normal mucosa, no hearing loss, no congestion - Neck no masses, no bruits, trachea midline, no lymphadenopathy, no venous distension - Respiratory normal expansion, normal respiratory effort, clear to auscultation - Cardiovascular Cardiovascular exam: Present: RRR, +S1, +S2. Absent: JVD, tachycardia - Abdomen non tender, bowel sounds (present), surgical scars (none), masses (none), distended (abdomen is distended but with good active bowel sounds; incision looks good; EVIN drainage is serous) - Integumentary no rash, no growths, no abnormal pigmentation - Neurologic normal coordination, normal sensation - Musculoskeletal normal gait, normal posture - Psychiatric oriented to time, oriented to person, oriented to place, speech is normal, memory intact - Labs 10/27/18 09:05 10/27/18 09:05 Diabetes panel 10/27/18 Range/Units 09:05 Sodium 144 (133-145) mmol/L Potassium 4.1 (3.3-5.1) mmol/L Chloride 113 H (96-108) mmol/L Carbon Dioxide 20 L (22-30) mmol/L BUN 14 (8-23) mg/dl Creatinine 0.7 (0.6-1.1) mg/dl Glucose 105 (70-105) mg/dL Calcium 8.0 L (8.6-10.4) mg/dl AST 10 (0-37) U/l ALT 8 (0-40) U/l Alkaline Phosphatase 43 (39-117) U/L Total Protein 5.1 L (5.9-8.4) gm/dL Albumin 2.3 L (3.2-5.2) gm/dL Triglycerides 72 (<150) mg/dl Calcium panel 10/27/18 Range/Units 09:05 Calcium 8.0 L (8.6-10.4) mg/dl Phosphorus 1.8 L (2.7-4.5) mg/dL Albumin 2.3 L (3.2-5.2) gm/dL Pituitary panel 10/27/18 Range/Units 09:05 Sodium 144 (133-145) mmol/L Potassium 4.1 (3.3-5.1) mmol/L Chloride 113 H (96-108) mmol/L Carbon Dioxide 20 L (22-30) mmol/L BUN 14 (8-23) mg/dl Creatinine 0.7 (0.6-1.1) mg/dl Glucose 105 (70-105) mg/dL Calcium 8.0 L (8.6-10.4) mg/dl Adrenal panel 10/27/18 Range/Units 09:05 Sodium 144 (133-145) mmol/L Potassium 4.1 (3.3-5.1) mmol/L Chloride 113 H (96-108) mmol/L Carbon Dioxide 20 L (22-30) mmol/L BUN 14 (8-23) mg/dl Creatinine 0.7 (0.6-1.1) mg/dl Glucose 105 (70-105) mg/dL Calcium 8.0 L (8.6-10.4) mg/dl Total Bilirubin 0.4 (0.0-1.0) mg/dL AST 10 (0-37) U/l ALT 8 (0-40) U/l Alkaline Phosphatase 43 (39-117) U/L Total Protein 5.1 L (5.9-8.4) gm/dL Albumin 2.3 L (3.2-5.2) gm/dL Assessment and Plan (1) Acute diverticulitis of intestine Status: Acute Assessment and plan: Continue antibiotic therapy Check abdominal series in the morning Clamp nasogastric tube Increase metoclopramide to every 6 hours Current Visit: Yes (2) Colon obstruction Status: Acute Current Visit: Yes (3) Fistula, colovaginal Status: Suspected Current Visit: No (4) Type 2 diabetes mellitus, without long-term current use of insulin Status: Chronic Current Visit: No (5) 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 Status: Chronic Current Visit: No (6) Essential hypertension Problem details: Chronically abnormal ECG; cardiolite normal in 2006. Status: Chronic Current Visit: No (7) Chronic obstructive pulmonary disease Problem details: Continued tobacco use and probable chronic bronchitiis. Hx of positive PPD at age 18; last chest x-ray 08/2012. 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 Status: Chronic Current Visit: No - Time Spent With Patient Total time spent is greater than 50% in coordination of care (as documented) at patient's floor/unit and/or counseling patient:
[2018-10-27] MEDS: POTASSIUM PHOSPHATE 40 MEQ in DEXTROSE 5% IN WATER 500 ML IV SCH ×2 (19:13→23:20)
[2018-10-28] MEDS: HYDROmorphone 2 MG/ML VIAL IV PRN ×6 (00:51→20:50)
[2018-10-28] MEDS: 0.9 % SODIUM CHLORIDE 1,000 ML IV SCH ×5 (00:55→19:44)
[2018-10-28] MEDS: PIPERACILLIN SODIUM/TAZOBACTAM 3.375 GM in DEXTROSE 5% IN WATER 50 ML IV SCH ×5 (05:16→23:56)
[2018-10-28] MEDS: METOCLOPRAMIDE 10 MG/2 ML VIAL IV SCH ×5 (05:16→23:55)
[2018-10-28] MEDS: metroNIDAZOLE 500 MG/100 ML BAG IV SCH ×3 (05:55→20:42)
[2018-10-28] MEDS: PANTOPRAZOLE 40 MG VIAL IV SCH ×2 (06:50→17:52)
[2018-10-28] MEDS: ENOXAPARIN 30 MG/0.3 ML SYRINGE SQ SCH (08:08)
--- NOTE | 2018-10-28 08:23 | XRay Report ---
CLINICAL INFORMATION: Postsurgical follow-up TECHNIQUE: Supine and upright abdomen COMPARISON: Previous postoperative abdomen dated 10/27/2018 FINDINGS: Esophagogastric tube remains in the stomach. Drains remain in the pelvis. Bowel gas pattern is unremarkable. There is gas within the colon. No distention. No dilated gas-filled small bowel. There is no pneumoperitoneum. No biliary or portal venous gas. No pneumatosis. IMPRESSION: 1. Nonspecific and nonobstructive bowel gas pattern 2. No acute abnormality Interpreted and Authenticated by: Ronald Shipman 10/28/18
--- NOTE | 2018-10-28 12:39 | General Surgery Progress Note ---
Subjective Patient reports: feels better, pain is less, flatus, no bowel movement, afebrile Narrative: Note initiated : 10/28/18 at 12:36 pm Service Date, if different from initiated Date: [] Patient: Brit Alonzo 78 y/o F admitted on 10/23/18 for Exploratory Laparotomy:poss Colectomy with . Chief Complaint: [patient continues to improve. She is having flatus and a small amount of liquid stool. She still has significant abdominal distention. Abdominal x-ray shows dilated colon leading up to her colostomy] Objective Temp Pulse Resp BP Pulse Ox 97.9 F 69 18 139/84 93 10/28/18 11:31 10/28/18 03:33 10/28/18 11:31 10/28/18 11:31 10/28/18 11:31 - Additional Data Intake & Output - Last 24 hours: Intake & Output 10/26/18 10/27/18 10/28/18 10/29/18 05:59 05:59 05:59 05:59 Intake Total 3770 4110 3629 1100 Output Total 2341 3012 3173 525 Balance 1429 1098 456 575 Weight 218 lb 216 lb 8 oz 220 lb - General physical appearance well developed, well nourished, no distress - Eyes PERRL, normal ocular movement - ENT normal pinna, normal nares, normal mucosa, no congestion, decreased hearing - Neck no masses, no bruits, trachea midline, no lymphadenopathy, no venous distension - Respiratory normal expansion, normal respiratory effort, clear to auscultation - Cardiovascular Cardiovascular exam: Present: normal rate and rhythm, RRR, +S1, +S2. Absent: JVD, tachycardia - Abdomen distended (abdomen is still significantly distended but is softer than on yesterday; incision looks good; she has good active bowel sounds; stoma looks good) - Integumentary no rash, no growths, no abnormal pigmentation - Neurologic normal coordination, normal sensation - Musculoskeletal normal gait, normal posture - Psychiatric oriented to time, oriented to person, oriented to place, speech is normal, memory intact - Labs 10/27/18 09:05 10/27/18 09:05 Assessment and Plan (1) Acute diverticulitis of intestine Status: Acute Assessment and plan: Continue antibiotic therapy Check abdominal series in the morning Discontinue nasogastric tube Increase metoclopramide to every 6 hours milk of magnesia 30 cc every 4 hours 4 doses Current Visit: Yes (2) Colon obstruction Status: Acute Current Visit: Yes (3) Fistula, colovaginal Status: Suspected Current Visit: No (4) Type 2 diabetes mellitus, without long-term current use of insulin Status: Chronic Current Visit: No (5) FPC current use of anticoagulant therapy Problem details: Hx of recurrent with positive Factor V Leiden-chronic anticoagulation. Status: Chronic Current Visit: No (6) Essential hypertension Problem details: Chronically abnormal ECG; cardiolite normal in 2006. Status: Chronic Current Visit: No (7) Chronic obstructive pulmonary disease Problem details: Continued tobacco use and probable chronic bronchitiis. Hx of positive PPD at age 18; last chest x-ray 08/2012. 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 Status: Chronic Current Visit: No - Time Spent With Patient Total time spent is greater than 50% in coordination of care (as documented) at patient's floor/unit and/or counseling patient:
[2018-10-28] MEDS: MAGNESIUM HYDROXIDE 30 ML ORAL.SUSP PO SCH ×3 (12:56→20:42)
[2018-10-29] MEDS: MAGNESIUM HYDROXIDE 30 ML ORAL.SUSP PO SCH ×2 (01:10→21:35)
[2018-10-29] MEDS: HYDROmorphone 2 MG/ML VIAL IV PRN ×6 (01:19→21:54)
[2018-10-29] MEDS: 0.9 % SODIUM CHLORIDE 1,000 ML IV SCH ×3 (04:19→14:39)
[2018-10-29 05:33] LABS: Basophils # (Auto) 0 K/mcL (0.0-0.3); Basophils % (Auto) 0.3 % (0.0-2.0); Eosinophils # (Auto) 0.2 K/mcL (0.0-0.7); Eosinophils % (Auto) 1.6 % (0.0-7.0); Lymphocytes # (Auto) 1.4 K/mcL (1.5-4.8); Lymphocytes % (Auto) 14.2 % (15.5-49.0); Monocytes # (Auto) 0.6 K/mcL (0.1-0.9); Monocytes % (Auto) 5.9 % (1.0-12.0); Platelet Count 328 K/mcL (140-440); RBC 3.59 M/mcL (4.00-5.20); Red Cell Distribution Width 15.4 % (11.5-14.5)
[2018-10-29] MEDS: METOCLOPRAMIDE 10 MG/2 ML VIAL IV SCH ×3 (06:00→17:44)
[2018-10-29] MEDS: metroNIDAZOLE 500 MG/100 ML BAG IV SCH ×3 (06:00→21:35)
[2018-10-29] MEDS: PIPERACILLIN SODIUM/TAZOBACTAM 3.375 GM in DEXTROSE 5% IN WATER 50 ML IV SCH ×3 (06:00→17:45)
[2018-10-29 06:14] LABS: ALT/SGPT 7 U/l (0-40); Albumin/Globulin Ratio 0.7 (1.0-2.3); Alkaline Phosphatase 38 U/L (39-117); Bilirubin,Direct < 0.2 mg/dL (0.0-0.3); Blood Urea Nitrogen 6 mg/dl (8-23); Gamma Glutamyl Transpeptidase 16 U/L (5-36); Uric Acid 2.2 mg/dL (2.5-8.0)
[2018-10-29] MEDS: PANTOPRAZOLE 40 MG VIAL IV SCH ×2 (06:58→17:44)
[2018-10-29] MEDS: ENOXAPARIN 30 MG/0.3 ML SYRINGE SQ SCH (09:40)
--- NOTE | 2018-10-29 14:17 | General Surgery Progress Note ---
Subjective Patient reports: feels better, pain is less, flatus, bowel movement, afebrile Narrative: Note initiated : 10/29/18 at 2:16 pm Service Date, if different from initiated Date: [] Patient: Brit Alonzo 78 y/o F admitted on 10/23/18 for Exploratory Laparotomy:poss Colectomy with . Chief Complaint: [patient continues to improve. Clinically she is in better frame of mind. She had at least 3 significant bowel movements last evening and is passing flatus though her abdomen is still distended. She is not having any nausea since her nasogastric tube was discontinued.] Objective Temp Pulse Resp BP Pulse Ox 97.3 F 82 16 126/74 90 10/29/18 11:58 10/29/18 04:00 10/29/18 11:58 10/29/18 11:58 10/29/18 11:58 - Additional Data Intake & Output - Last 24 hours: Intake & Output 10/27/18 10/28/18 10/29/18 10/30/18 05:59 05:59 05:59 05:59 Intake Total 4110 4138.0909 3740 1050 Output Total 3012 3173 2571 600 Balance 3350 491.6933 1169 450 Weight 216 lb 8 oz 220 lb 223 lb - General physical appearance well developed, well nourished, no distress - Eyes PERRL, normal ocular movement - ENT normal pinna, normal nares, normal mucosa, no congestion, decreased hearing - Neck no masses, no bruits, trachea midline, no lymphadenopathy, no venous distension - Respiratory normal expansion, normal respiratory effort, clear to auscultation - Cardiovascular Cardiovascular exam: Present: normal rate and rhythm, RRR, +S1, +S2. Absent: JV D, tachycardia - Abdomen distended (abdomen is significantly distended but she has good active bowel sounds; she is having passage of flatus and has had bowel movements. Her incision looks good and her stoma looks good.....) - Integumentary no rash, no growths, no abnormal pigmentation - Neurologic normal coordination, normal sensation - Musculoskeletal normal gait, normal posture - Psychiatric oriented to time, oriented to person, oriented to place, speech is normal, memory intact - Labs 10/29/18 04:17 10/29/18 04:17 Diabetes panel 10/29/18 Range/Units 04:17 Sodium 142 (133-145) mmol/L Potassium 3.8 (3.3-5.1) mmol/L Chloride 109 H (96-108) mmol/L Carbon Dioxide 24 (22-30) mmol/L BUN 6 L (8-23) mg/dl Creatinine 0.6 (0.6-1.1) mg/dl Glucose 138 H (70-105) mg/dL Calcium 7.9 L (8.6-10.4) mg/dl AST 12 (0-37) U/l ALT 7 (0-40) U/l Alkaline Phosphatase 38 L (39-117) U/L Total Protein 4.9 L (5.9-8.4) gm/dL Albumin 2.0 L (3.2-5.2) gm/dL Triglycerides 94 (<150) mg/dl Calcium panel 10/29/18 Range/Units 04:17 Calcium 7.9 L (8.6-10.4) mg/dl Phosphorus 2.2 L (2.7-4.5) mg/dL Albumin 2.0 L (3.2-5.2) gm/dL Pituitary panel 10/29/18 Range/Units 04:17 Sodium 142 (133-145) mmol/L Potassium 3.8 (3.3-5.1) mmol/L Chloride 109 H (96-108) mmol/L Carbon Dioxide 24 (22-30) mmol/L BUN 6 L (8-23) mg/dl Creatinine 0.6 (0.6-1.1) mg/dl Glucose 138 H (70-105) mg/dL Calcium 7.9 L (8.6-10.4) mg/dl Adrenal panel 10/29/18 Range/Units 04:17 Sodium 142 (133-145) mmol/L Potassium 3.8 (3.3-5.1) mmol/L Chloride 109 H (96-108) mmol/L Carbon Dioxide 24 (22-30) mmol/L BUN 6 L (8-23) mg/dl Creatinine 0.6 (0.6-1.1) mg/dl Glucose 138 H (70-105) mg/dL Calcium 7.9 L (8.6-10.4) mg/dl Total Bilirubin 0.5 (0.0-1.0) mg/dL AST 12 (0-37) U/l ALT 7 (0-40) U/l Alkaline Phosphatase 38 L (39-117) U/L Total Protein 4.9 L (5.9-8.4) gm/dL Albumin 2.0 L (3.2-5.2) gm/dL Assessment and Plan (1) Acute diverticulitis of intestine Status: Acute Assessment and plan: Continue antibiotic therapy Check abdominal series in the morning Increase metoclopramide to every 6 hours milk of magnesia 30 cc every 12 hours Current Visit: Yes (2) Colon obstruction Status: Resolved Current Visit: Yes (3) Fistula, colovaginal Status: Suspected Current Visit: No (4) Type 2 diabetes mellitus, without long-term current use of insulin Status: Chronic Current Visit: No (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 Status: Chronic Current Visit: No (6) Essential hypertension Problem details: Chronically abnormal ECG; cardiolite normal in 2006. Status: Chronic Current Visit: No (7) Chronic obstructive pulmonary disease Problem details: Continued tobacco use and probable chronic bronchitiis. Hx of positive PPD at age 18; last chest x-ray 08/2012. 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 Status: Chronic Current Visit: No - Time Spent With Patient Total time spent is greater than 50% in coordination of care (as documented) at patient's floor/unit and/or counseling patient:
[2018-10-29] MEDS ORDERED: POTASSIUM PHOSPHATE 40 MEQ in DEXTROSE 5% IN WATER 500 ML IV ONE (15:00)
[2018-10-29] MEDS: LORazepam 2 MG/ML VIAL IV PRN (16:19)
[2018-10-30] MEDS: METOCLOPRAMIDE 10 MG/2 ML VIAL IV SCH ×5 (00:12→23:37)
[2018-10-30] MEDS: PIPERACILLIN SODIUM/TAZOBACTAM 3.375 GM in DEXTROSE 5% IN WATER 50 ML IV SCH ×5 (00:12→23:37)
[2018-10-30] MEDS: HYDROmorphone 2 MG/ML VIAL IV PRN ×5 (00:22→18:58)
[2018-10-30 05:40] LABS: Basophils # (Auto) 0 K/mcL (0.0-0.3); Basophils % (Auto) 0.3 % (0.0-2.0); Eosinophils # (Auto) 0.2 K/mcL (0.0-0.7); Eosinophils % (Auto) 1.4 % (0.0-7.0); Granulocytes % (Auto) 77.5 % (38.0-78.0); Lymphocytes # (Auto) 2.1 K/mcL (1.5-4.8); Lymphocytes % (Auto) 14.7 % (15.5-49.0); Mean Cell Volume 85.5 fL (80.0-100.0); Mean Corpuscular HGB Conc 31.8 g/dL (31.0-36.0); Monocytes # (Auto) 0.9 K/mcL (0.1-0.9); Monocytes % (Auto) 6.1 % (1.0-12.0); Platelet Count 364 K/mcL (140-440); RBC 4.35 M/mcL (4.00-5.20); Red Cell Distribution Width 15.2 % (11.5-14.5)
[2018-10-30] MEDS: metroNIDAZOLE 500 MG/100 ML BAG IV SCH ×3 (05:56→22:17)
[2018-10-30 06:09] LABS: ALT/SGPT 8 U/l (0-40); Albumin 2.5 gm/dL (3.2-5.2); Albumin/Globulin Ratio 0.7 (1.0-2.3); Alkaline Phosphatase 49 U/L (39-117); Bilirubin,Direct < 0.2 mg/dL (0.0-0.3); Blood Urea Nitrogen 5 mg/dl (8-23); Gamma Glutamyl Transpeptidase 19 U/L (5-36)
[2018-10-30] MEDS: PANTOPRAZOLE 40 MG VIAL IV SCH ×2 (06:54→18:41)
[2018-10-30] MEDS: ENOXAPARIN 30 MG/0.3 ML SYRINGE SQ SCH (09:34)
[2018-10-30] MEDS: MAGNESIUM HYDROXIDE 30 ML ORAL.SUSP PO SCH ×2 (09:34→22:17)
--- NOTE | 2018-10-30 09:35 | XRay Report ---
CLINICAL INFORMATION: Postsurgical follow-up. History of diverticulitis and previous surgery. TECHNIQUE: Supine and upright abdomen COMPARISON: Previous postoperative examinations dated 10/28/2018 and 10/27/2018. FINDINGS: Status post removal of esophagogastric tube. No change in positions of pelvic surgical drainage catheters. Skin darshan remain present. There is increased small bowel gas and decreased colonic gas. There are scattered air-fluid levels on upright examination. There is no pneumoperitoneum. No biliary or portal venous gas. No pneumatosis. Developing mechanical small bowel obstruction is not excluded. Follow-up radiographs recommended. IMPRESSION: 1. Postoperative changes as above 2. Increased small bowel gas and decreased colonic gas. Developing obstruction is possible and continued follow-up is recommended Interpreted and Authenticated by: Ronald Shipman 10/30/18
--- NOTE | 2018-10-30 13:22 | General Surgery Progress Note ---
Subjective Patient reports: feels better, pain is less, tolerating liquids well, flatus, bowel movement, diarrhea, afebrile Narrative: Note initiated : 10/30/18 at 1:20 pm Service Date, if different from initiated Date: [] Patient: Brit Alonzo 78 y/o F admitted on 10/23/18 for Exploratory Laparotomy:poss Colectomy with . Chief Complaint: [Patient is doing well. She feels much better. Her pain is improved. She is afebrile. Her stoma is working with large volume output gas and stool. Labs stable.] Objective Temp Pulse Resp BP Pulse Ox 98.3 F 87 16 139/80 92 10/30/18 11:45 10/30/18 11:45 10/30/18 11:45 10/30/18 11:45 10/30/18 11:45 - Additional Data Intake & Output - Last 24 hours: Intake & Output 10/28/18 10/29/18 10/30/18 10/31/18 05:59 05:59 05:59 05:59 Intake Total 4138.0909 3740 3029.0909 150 Output Total 3173 2571 2058 726 Balance 965.0909 1561 025.1847 -576 Weight 220 lb 223 lb 224 lb 8 oz - General physical appearance well developed, well nourished, no distress, moderate pain - Eyes PERRL, normal ocular movement - ENT normal pinna, normal nares, normal mucosa, no hearing loss, no congestion - Neck no masses, no bruits, trachea midline, no lymphadenopathy, no venous distension - Respiratory normal expansion, normal respiratory effort, clear to auscultation - Cardiovascular Cardiovascular exam: Present: normal rate and rhythm, RRR, +S1, +S2. Absent: JVD, tachycardia - Abdomen non tender, bowel sounds (present), surgical scars (surgical incision is unremarkable), masses (none), distended (she has moderate distention but her abdomen is softer than on yesterday) - Integumentary no rash, no growths, no abnormal pigmentation - Neurologic normal coordination, normal sensation - Musculoskeletal normal gait, normal posture - Psychiatric oriented to time, oriented to person, oriented to place, speech is normal, memory intact - Labs 10/30/18 04:13 10/30/18 04:13 Diabetes panel 10/30/18 Range/Units 04:13 Sodium 141 (133-145) mmol/L Potassium 3.9 (3.3-5.1) mmol/L Chloride 104 (96-108) mmol/L Carbon Dioxide 27 (22-30) mmol/L BUN 5 L (8-23) mg/dl Creatinine 0.7 (0.6-1.1) mg/dl Glucose 162 H (70-105) mg/dL Calcium 8.5 L (8.6-10.4) mg/dl AST 11 (0-37) U/l ALT 8 (0-40) U/l Alkaline Phosphatase 49 (39-117) U/L Total Protein 6.1 (5.9-8.4) gm/dL Albumin 2.5 L (3.2-5.2) gm/dL Triglycerides 110 (<150) mg/dl Calcium panel 10/30/18 Range/Units 04:13 Calcium 8.5 L (8.6-10.4) mg/dl Phosphorus 2.3 L (2.7-4.5) mg/dL Albumin 2.5 L (3.2-5.2) gm/dL Pituitary panel 10/30/18 Range/Units 04:13 Sodium 141 (133-145) mmol/L Potassium 3.9 (3.3-5.1) mmol/L Chloride 104 (96-108) mmol/L Carbon Dioxide 27 (22-30) mmol/L BUN 5 L (8-23) mg/dl Creatinine 0.7 (0.6-1.1) mg/dl Glucose 162 H (70-105) mg/dL Calcium 8.5 L (8.6-10.4) mg/dl Adrenal panel 10/30/18 Range/Units 04:13 Sodium 141 (133-145) mmol/L Potassium 3.9 (3.3-5.1) mmol/L Chloride 104 (96-108) mmol/L Carbon Dioxide 27 (22-30) mmol/L BUN 5 L (8-23) mg/dl Creatinine 0.7 (0.6-1.1) mg/dl Glucose 162 H (70-105) mg/dL Calcium 8.5 L (8.6-10.4) mg/dl Total Bilirubin 0.5 (0.0-1.0) mg/dL AST 11 (0-37) U/l ALT 8 (0-40) U/l Alkaline Phosphatase 49 (39-117) U/L Total Protein 6.1 (5.9-8.4) gm/dL Albumin 2.5 L (3.2-5.2) gm/dL Assessment and Plan (1) Acute diverticulitis of intestine Status: Acute Assessment and plan: Continue antibiotic therapy Check abdominal series in the morning Increase metoclopramide to every 6 hours milk of magnesia 30 cc every 12 hours Current Visit: Yes (2) Colon obstruction Status: Resolved Current Visit: Yes (3) Fistula, colovaginal Status: Suspected Current Visit: No (4) Type 2 diabetes mellitus, without long-term current use of insulin Status: Chronic Current Visit: No (5) USP current use of anticoagulant therapy Problem details: Hx of recurrent with positive Factor V Leiden-chronic anticoagulation. Status: Chronic Current Visit: No (6) Essential hypertension Problem details: Chronically abnormal ECG; cardiolite normal in 2006. Status: Chronic Current Visit: No (7) Chronic obstructive pulmonary disease Problem details: Continued tobacco use and probable chronic bronchitiis. Hx of positive PPD at age 18; last chest x-ray 08/2012. Status: Chronic Current Visit: No (8) Factor V Leiden Problem details: Hx of recurrent with positive Factor V Leiden-chronic anticoa gulation. Status: Chronic Current Visit: No - Time Spent With Patient Total time spent is greater than 50% in coordination of care (as documented) at patient's floor/unit and/or counseling patient:
[2018-10-30] MEDS ORDERED: POTASSIUM PHOSPHATE 40 MEQ in DEXTROSE 5% IN WATER 500 ML IV ONE (14:00)
[2018-10-30] MEDS: 0.9 % SODIUM CHLORIDE 1,000 ML IV SCH ×2 (20:42→22:18)
[2018-10-31] MEDS: HYDROmorphone 2 MG/ML VIAL IV PRN ×3 (01:03→14:49)
[2018-10-31] MEDS: PIPERACILLIN SODIUM/TAZOBACTAM 3.375 GM in DEXTROSE 5% IN WATER 50 ML IV SCH ×3 (05:18→17:45)
[2018-10-31] MEDS: METOCLOPRAMIDE 10 MG/2 ML VIAL IV SCH ×3 (05:58→17:45)
[2018-10-31] MEDS: metroNIDAZOLE 500 MG/100 ML BAG IV SCH ×3 (05:58→22:45)
[2018-10-31] MEDS: PANTOPRAZOLE 40 MG VIAL IV SCH ×2 (07:12→16:56)
[2018-10-31] MEDS: ENOXAPARIN 30 MG/0.3 ML SYRINGE SQ SCH (09:01)
[2018-10-31] MEDS: MAGNESIUM HYDROXIDE 30 ML ORAL.SUSP PO SCH ×3 (09:02→22:01)
[2018-10-31] MEDS: 0.9 % SODIUM CHLORIDE 1,000 ML IV SCH (10:24)
[2018-10-31] MEDS: oxyCODONE HCL 5 MG TABLET PO PRN (20:08)
[2018-10-31] MEDS ORDERED: DEXTROSE 31 GM ORAL.SUSP PO PRN (21:51)
[2018-10-31] MEDS ORDERED: DEXTROSE 50% 50 ML VIAL IV PRN (21:51)
[2018-10-31] MEDS: METOPROLOL SUCCINATE 50 MG TAB.XL.24H PO SCH (21:56)
[2018-10-31] MEDS ORDERED: INSULIN LISPRO 1 UNIT/0.01 ML UNIT SQ ONE (21:56)
[2018-10-31] MEDS: DOXEPIN 10 MG CAPSULE PO SCH (21:56)
[2018-11-01] MEDS: PIPERACILLIN SODIUM/TAZOBACTAM 3.375 GM in DEXTROSE 5% IN WATER 50 ML IV SCH ×5 (00:40→23:48)
[2018-11-01] MEDS: METOCLOPRAMIDE 10 MG/2 ML VIAL IV SCH ×5 (00:40→23:48)
[2018-11-01] MEDS: oxyCODONE HCL 5 MG TABLET PO PRN ×4 (01:42→19:01)
[2018-11-01] MEDS: 0.9 % SODIUM CHLORIDE 1,000 ML IV SCH ×2 (03:19→22:46)
[2018-11-01] MEDS: metroNIDAZOLE 500 MG/100 ML BAG IV SCH ×3 (05:00→21:04)
[2018-11-01] MEDS: PANTOPRAZOLE 40 MG VIAL IV SCH ×2 (07:45→16:33)
[2018-11-01] MEDS: INSULIN LISPRO 1 UNIT/0.01 ML UNIT SQ SCH ×4 (07:46→21:03)
[2018-11-01] MEDS: ENOXAPARIN 30 MG/0.3 ML SYRINGE SQ SCH (10:00)
[2018-11-01] MEDS: METOPROLOL SUCCINATE 50 MG TAB.XL.24H PO SCH ×2 (10:00→20:41)
[2018-11-01] MEDS: MAGNESIUM HYDROXIDE 30 ML ORAL.SUSP PO SCH ×2 (10:00→20:44)
[2018-11-01] MEDS: Empagliflozin [Jardiance] 25 MG PO SCH (10:12)
--- NOTE | 2018-11-01 13:20 | General Surgery Progress Note ---
Subjective Patient reports: feels better, pain is less, tolerating liquids well, flatus, bowel movement, diarrhea, afebrile Narrative: Note initiated : 11/01/18 at 1:18 pm Service Date, if different from initiated Date: [] Patient: Brit Alonzo 78 y/o F admitted on 10/23/18 for Exploratory Laparotomy:poss Colectomy with . Chief Complaint: [patient is doing well. She states that she feels much better. Her stoma is putting out large volumes of stool and gas. Her incision is unremarkable. She is tolerating soft diet.] Objective Temp Pulse Resp BP Pulse Ox 98.4 F 81 18 119/63 90 11/01/18 11:26 11/01/18 11:26 11/01/18 11:26 11/01/18 11:26 11/01/18 11:26 - Additional Data Intake & Output - Last 24 hours: Intake & Output 10/30/18 10/31/18 11/01/18 11/02/18 05:59 05:59 05:59 05:59 Intake Total 3029.0909 1680 2770 150 Output Total 2058 1505 819 Balance 971.0909 175 1951 150 Weight 224 lb 8 oz 230 lb 219 lb 8 oz - General physical appearance well developed, well nourished, no distress - Eyes PERRL, normal ocular movement - ENT normal pinna, normal nares, normal mucosa, no congestion, decreased hearing - Neck no masses, no bruits, trachea midline, no lymphadenopathy, no venous distension - Respiratory normal expansion, normal respiratory effort, clear to auscultation - Cardiovascular Cardiovascular exam: Present: normal rate and rhythm, RRR, +S1, +S2. Absent: JVD, tachycardia - Abdomen tender (moderate abdominal tenderness with mild distention; good active bowel sounds; incision is healing unremarkably well; stoma is functioning well), bowel sounds (present), surgical scars (none), masses (none) - Integumentary no rash, no growths, no abnormal pigmentation - Neurologic normal coordination, normal sensation - Musculoskeletal normal gait, normal posture - Psychiatric oriented to time, oriented to person, oriented to place, speech is normal, memory intact - Labs 10/30/18 04:13 10/30/18 04:13 Assessment and Plan (1) Acute diverticulitis of intestine Status: Acute Assessment and plan: Continue antibiotic therapy Advanced to soft diet Increase metoclopramide to every 6 hours milk of magnesia 30 cc every 12 hours Current Visit: Yes (2) Colon obstruction Status: Resolved Current Visit: Yes (3) Fistula, colovaginal Status: Suspected Current Visit: No (4) Type 2 diabetes mellitus, without long-term current use of insulin Status: Chronic Current Visit: No (5) residential current use of anticoagulant therapy Problem details: Hx of recurrent with positive Factor V Leiden-chronic anticoagulation. Status: Chronic Current Visit: No (6) Essential hypertension Problem details: Chronically abnormal ECG; cardiolite normal in 2006. Status: Chronic Current Visit: No (7) Chronic obstructive pulmonary disease Problem details: Continued tobacco use and probable chronic bronchitiis. Hx of positive PPD at age 18; last chest x-ray 08/2012. 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 Status: Chronic Current Visit: No - Time Spent With Patient Total time spent is greater than 50% in coordination of care (as documented) at patient's floor/unit and/or counseling patient:
[2018-11-01] MEDS: DOXEPIN 10 MG CAPSULE PO SCH (20:41)
[2018-11-02] MEDS: oxyCODONE HCL 5 MG TABLET PO PRN ×4 (00:06→15:54)
[2018-11-02] MEDS: metroNIDAZOLE 500 MG/100 ML BAG IV SCH ×4 (04:55→22:29)
[2018-11-02 05:51] LABS: Basophils # (Auto) 0 K/mcL (0.0-0.3); Basophils % (Auto) 0.4 % (0.0-2.0); Eosinophils # (Auto) 0.2 K/mcL (0.0-0.7); Eosinophils % (Auto) 2.4 % (0.0-7.0); Granulocytes % (Auto) 73.1 % (38.0-78.0); Lymphocytes # (Auto) 1.7 K/mcL (1.5-4.8); Mean Cell Volume 84.8 fL (80.0-100.0); Mean Corpuscular HGB Conc 32.6 g/dL (31.0-36.0); Monocytes # (Auto) 0.8 K/mcL (0.1-0.9); Monocytes % (Auto) 8.1 % (1.0-12.0); Platelet Count 267 K/mcL (140-440); RBC 3.49 M/mcL (4.00-5.20); Red Cell Distribution Width 15.8 % (11.5-14.5)
[2018-11-02] MEDS: PIPERACILLIN SODIUM/TAZOBACTAM 3.375 GM in DEXTROSE 5% IN WATER 50 ML IV SCH ×3 (05:57→19:53)
[2018-11-02] MEDS: METOCLOPRAMIDE 10 MG/2 ML VIAL IV SCH ×3 (05:57→18:03)
[2018-11-02 06:28] LABS: ALT/SGPT 5 U/l (0-40); Albumin 1.8 gm/dL (3.2-5.2); Albumin/Globulin Ratio 0.6 (1.0-2.3); Alkaline Phosphatase 40 U/L (39-117); Bilirubin,Direct < 0.2 mg/dL (0.0-0.3); Blood Urea Nitrogen 4 mg/dl (8-23); Gamma Glutamyl Transpeptidase 15 U/L (5-36); Uric Acid 1.7 mg/dL (2.5-8.0)
[2018-11-02] MEDS: INSULIN LISPRO 1 UNIT/0.01 ML UNIT SQ SCH ×4 (08:33→22:26)
[2018-11-02] MEDS: PANTOPRAZOLE 40 MG VIAL IV SCH ×2 (08:33→17:43)
[2018-11-02] MEDS: MAGNESIUM HYDROXIDE 30 ML ORAL.SUSP PO SCH ×2 (09:04→22:26)
[2018-11-02] MEDS: METOPROLOL SUCCINATE 50 MG TAB.XL.24H PO SCH ×2 (09:05→22:26)
[2018-11-02] MEDS: Empagliflozin [Jardiance] 25 MG PO SCH (09:05)
[2018-11-02] MEDS: ENOXAPARIN 30 MG/0.3 ML SYRINGE SQ SCH (09:05)
[2018-11-02] MEDS ORDERED: MAGNESIUM SULFATE 32.48 MEQ in DEXTROSE 5% IN WATER 50 ML IV ONE (14:21)
[2018-11-02] MEDS ORDERED: MAGNESIUM SULFATE 4 GM/100 ML BAG IV ONE ×4 (15:00→16:45)
--- NOTE | 2018-11-02 16:27 | General Surgery Progress Note ---
Subjective Patient reports: feels better, pain is less, tolerating liquids well, flatus, bowel movement, afebrile Narrative: Note initiated : 11/02/18 at 4:27 pm Service Date, if different from initiated Date: [] Patient: Brit Alonzo 78 y/o F admitted on 10/23/18 for Exploratory Laparotomy:poss Colectomy with . Chief Complaint: [patient is doing well. Her abdominal distention continues to improve. Her stoma is working well .white blood count 10.4; hemoglobin 9.6; potassium 3.7; phosphorus was 2.1] Objective Temp Pulse Resp BP Pulse Ox 98.6 F 70 18 125/72 92 11/02/18 12:00 11/02/18 12:00 11/02/18 12:00 11/02/18 12:00 11/02/18 12:00 - Additional Data Intake & Output - Last 24 hours: Intake & Output 10/31/18 11/01/18 11/02/18 11/03/18 05:59 05:59 05:59 05:59 Intake Total 1680 2770 1989 50 Output Total 1505 819 296 11 Balance 175 1951 1694 39 Weight 230 lb 219 lb 8 oz 219 lb - General physical appearance well developed, well nourished, no distress - Eyes PERRL, normal ocular movement - ENT normal pinna, normal nares, normal mucosa, no congestion, decreased hearing - Neck no masses, no bruits, trachea midline, no lymphadenopathy, no venous distension - Respiratory normal expansion, normal respiratory effort, clear to auscultation - Cardiovascular Cardiovascular exam: Present: normal rate and rhythm, RRR, +S1, +S2. Absent: JVD, tachycardia - Abdomen non tender, tender (abdomen is softer and much less distended; good active bowel sounds; incision stoma appeared healthy), bowel sounds (present), surgical scars (none), masses (none) - Integumentary no rash, no growths, no abnormal pigmentation - Neurologic normal coordination, normal sensation - Musculoskeletal normal gait, normal posture - Psychiatric oriented to time, oriented to person, oriented to place, speech is normal, me mary intact - Labs 11/02/18 04:30 11/02/18 04:30 Diabetes panel 11/02/18 Range/Units 04:30 Sodium 136 (133-145) mmol/L Potassium 3.7 (3.3-5.1) mmol/L Chloride 102 (96-108) mmol/L Carbon Dioxide 26 (22-30) mmol/L BUN 4 L (8-23) mg/dl Creatinine 0.7 (0.6-1.1) mg/dl Glucose 119 H (70-105) mg/dL Calcium 7.6 L (8.6-10.4) mg/dl AST 13 (0-37) U/l ALT 5 (0-40) U/l Alkaline Phosphatase 40 (39-117) U/L Total Protein 4.7 L (5.9-8.4) gm/dL Albumin 1.8 L (3.2-5.2) gm/dL Triglycerides 83 (<150) mg/dl Calcium panel 11/02/18 Range/Units 04:30 Calcium 7.6 L (8.6-10.4) mg/dl Phosphorus 2.1 L (2.7-4.5) mg/dL Albumin 1.8 L (3.2-5.2) gm/dL Pituitary panel 11/02/18 Range/Units 04:30 Sodium 136 (133-145) mmol/L Potassium 3.7 (3.3-5.1) mmol/L Chloride 102 (96-108) mmol/L Carbon Dioxide 26 (22-30) mmol/L BUN 4 L (8-23) mg/dl Creatinine 0.7 (0.6-1.1) mg/dl Glucose 119 H (70-105) mg/dL Calcium 7.6 L (8.6-10.4) mg/dl Adrenal panel 11/02/18 Range/Units 04:30 Sodium 136 (133-145) mmol/L Potassium 3.7 (3.3-5.1) mmol/L Chloride 102 (96-108) mmol/L Carbon Dioxide 26 (22-30) mmol/L BUN 4 L (8-23) mg/dl Creatinine 0.7 (0.6-1.1) mg/dl Glucose 119 H (70-105) mg/dL Calcium 7.6 L (8.6-10.4) mg/dl Total Bilirubin 0.4 (0.0-1.0) mg/dL AST 13 (0-37) U/l ALT 5 (0-40) U/l Alkaline Phosphatase 40 (39-117) U/L Total Protein 4.7 L (5.9-8.4) gm/dL Albumin 1.8 L (3.2-5.2) gm/dL Assessment and Plan (1) Acute diverticulitis of intestine Status: Acute Assessment and plan: Continue antibiotic therapy Advanced to soft diet Increase metoclopramide to every 6 hours milk of magnesia 30 cc every 12 hours Current Visit: Yes (2) Colon obstruction Status: Resolved Current Visit: Yes (3) Fistula, colovaginal Status: Suspected Current Visit: No (4) Type 2 diabetes mellitus, without long-term current use of insulin Status: Chronic Current Visit: No (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 Status: Chronic Current Visit: No (6) Essential hypertension Problem details: Chronically abnormal ECG; cardiolite normal in 2006. Status: Chronic Current Visit: No (7) Chronic obstructive pulmonary disease Problem details: Continued tobacco use and probable chronic bronchitiis. Hx of positive PPD at age 18; last chest x-ray 08/2012. 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 Status: Chronic Current Visit: No - Time Spent With Patient Total time spent is greater than 50% in coordination of care (as documented) at patient's floor/unit and/or counseling patient:
[2018-11-02] MEDS: ACETAMINOPHEN 325 MG TABLET PO PRN (19:52)
[2018-11-02] MEDS: DOXEPIN 10 MG CAPSULE PO SCH (22:26)
[2018-11-02] MEDS: LORazepam 2 MG/ML VIAL IV PRN (22:44)
[2018-11-03] MEDS: METOCLOPRAMIDE 10 MG/2 ML VIAL IV SCH ×4 (00:11→17:53)
[2018-11-03] MEDS: PIPERACILLIN SODIUM/TAZOBACTAM 3.375 GM in DEXTROSE 5% IN WATER 50 ML IV SCH ×4 (00:13→17:53)
[2018-11-03] MEDS: 0.9 % SODIUM CHLORIDE 1,000 ML IV SCH ×2 (04:42→22:53)
[2018-11-03] MEDS: metroNIDAZOLE 500 MG/100 ML BAG IV SCH ×4 (04:43→23:25)
[2018-11-03] MEDS: oxyCODONE HCL 5 MG TABLET PO PRN ×4 (05:13→22:22)
[2018-11-03 05:41] LABS: Basophils # (Auto) 0 K/mcL (0.0-0.3); Basophils % (Auto) 0.5 % (0.0-2.0); Eosinophils # (Auto) 0.3 K/mcL (0.0-0.7); Eosinophils % (Auto) 2.6 % (0.0-7.0); Granulocytes % (Auto) 71.3 % (38.0-78.0); Lymphocytes # (Auto) 1.6 K/mcL (1.5-4.8); Lymphocytes % (Auto) 16.1 % (15.5-49.0); Mean Cell Volume 85.5 fL (80.0-100.0); Monocytes # (Auto) 0.9 K/mcL (0.1-0.9); Monocytes % (Auto) 9.5 % (1.0-12.0); Platelet Count 276 K/mcL (140-440); RBC 3.76 M/mcL (4.00-5.20); Red Cell Distribution Width 16.1 % (11.5-14.5)
[2018-11-03 05:57] LABS: ALT/SGPT 7 U/l (0-40); Albumin 1.9 gm/dL (3.2-5.2); Albumin/Globulin Ratio 0.6 (1.0-2.3); Alkaline Phosphatase 41 U/L (39-117); Bilirubin,Direct < 0.2 mg/dL (0.0-0.3); Blood Urea Nitrogen 3 mg/dl (8-23); Gamma Glutamyl Transpeptidase 18 U/L (5-36); Uric Acid 1.7 mg/dL (2.5-8.0)
[2018-11-03] MEDS: PANTOPRAZOLE 40 MG VIAL IV SCH ×2 (08:37→16:54)
[2018-11-03] MEDS: ENOXAPARIN 30 MG/0.3 ML SYRINGE SQ SCH (08:53)
[2018-11-03] MEDS: INSULIN LISPRO 1 UNIT/0.01 ML UNIT SQ SCH ×4 (08:53→22:17)
[2018-11-03] MEDS: METOPROLOL SUCCINATE 50 MG TAB.XL.24H PO SCH ×2 (08:55→22:19)
[2018-11-03] MEDS: MAGNESIUM HYDROXIDE 30 ML ORAL.SUSP PO SCH ×2 (08:56→22:18)
[2018-11-03] MEDS: Empagliflozin [Jardiance] 25 MG PO SCH (08:56)
--- NOTE | 2018-11-03 17:30 | General Surgery Progress Note ---
Subjective Patient reports: feels better, pain is less, flatus, bowel movement, afebrile Narrative: Note initiated : 11/03/18 at 5:28 pm Service Date, if different from initiated Date: [] Patient: Brit Alonzo 78 y/o F admitted on 10/23/18 for Exploratory Laparotomy:poss Colectomy with . Chief Complaint: [Patient continues to do well. She is tolerating soft diet without difficulty. Her abdomen is soft and her pain is adequately controlled. Her incision looks good. She has been afebrile. White blood count 9.9. Hemoglobin 10.3, phosphorus 2.2.] Objective Temp Pulse Resp BP Pulse Ox 98.9 F 77 18 149/76 90 11/03/18 16:00 11/03/18 16:00 11/03/18 16:00 11/03/18 16:00 11/03/18 16:00 - Additional Data Intake & Output - Last 24 hours: Intake & Output 11/01/18 11/02/18 11/03/18 11/04/18 05:59 05:59 05:59 05:59 Intake Total 2770 1990 1660 300 Output Total 819 296 230 656 Balance 1951 1694 1430 -356 Weight 219 lb 8 oz 219 lb 220 lb 220 lb - General physical appearance well developed, well nourished, no distress - Eyes PERRL, normal ocular movement - ENT normal pinna, normal nares, normal mucosa, no hearing loss, no congestion - Neck no masses, no bruits, trachea midline, no lymphadenopathy, no venous distension - Respiratory normal expansion, normal respiratory effort, clear to auscultation - Cardiovascular Cardiovascular exam: Present: normal rate and rhythm, RRR, +S1, +S2. Absent: JVD, tachycardia - Abdomen tender, bowel sounds (present), surgical scars (none), masses (none) - Genitourinary normal external genitalia, normal perineum - Rectum normal sphincter tone, no hemorrhoids, no tenderness, no masses, no bleeding - Integumentary no rash, no growths, no abnormal pigmentation - Neurologic normal coordination, normal sensation - Musculoskeletal normal gait, normal posture - Psychiatric oriented to time, oriented to person, oriented to place, speech is normal, memory intact - Labs 11/03/18 04:30 11/03/18 04:30 Diabetes panel 11/03/18 Range/Units 04:30 Sodium 138 (133-145) mmol/L Potassium 3.8 (3.3-5.1) mmol/L Chloride 103 (96-108) mmol/L Carbon Dioxide 27 (22-30) mmol/L BUN 3 L (8-23) mg/dl Creatinine 0.8 (0.6-1.1) mg/dl Glucose 174 H (70-105) mg/dL Calcium 7.6 L (8.6-10.4) mg/dl AST 14 (0-37) U/l ALT 7 (0-40) U/l Alkaline Phosphatase 41 (39-117) U/L Total Protein 5.0 L (5.9-8.4) gm/dL Albumin 1.9 L (3.2-5.2) gm/dL Triglycerides 101 (<150) mg/dl Calcium panel 11/03/18 Range/Units 04:30 Calcium 7.6 L (8.6-10.4) mg/dl Phosphorus 2.2 L (2.7-4.5) mg/dL Albumin 1.9 L (3.2-5.2) gm/dL Pituitary panel 11/03/18 Range/Units 04:30 Sodium 138 (133-145) mmol/L Potassium 3.8 (3.3-5.1) mmol/L Chloride 103 (96-108) mmol/L Carbon Dioxide 27 (22-30) mmol/L BUN 3 L (8-23) mg/dl Creatinine 0.8 (0.6-1.1) mg/dl Glucose 174 H (70-105) mg/dL Calcium 7.6 L (8.6-10.4) mg/dl Adrenal panel 11/03/18 Range/Units 04:30 Sodium 138 (133-145) mmol/L Potassium 3.8 (3.3-5.1) mmol/L Chloride 103 (96-108) mmol/L Carbon Dioxide 27 (22-30) mmol/L BUN 3 L (8-23) mg/dl Creatinine 0.8 (0.6-1.1) mg/dl Glucose 174 H (70-105) mg/dL Calcium 7.6 L (8.6-10.4) mg/dl Total Bilirubin 0.4 (0.0-1.0) mg/dL AST 14 (0-37) U/l ALT 7 (0-40) U/l Alkaline Phosphatase 41 (39-117) U/L Total Protein 5.0 L (5.9-8.4) gm/dL Albumin 1.9 L (3.2-5.2) gm/dL Assessment and Plan (1) Acute diverticulitis of intestine Status: Acute Assessment and plan: Continue antibiotic therapy Advanced to soft diet Increase metoclopramide to every 6 hours Patient is stable and probably can be transferred to the nursing care facility tomorrow. Will evaluate for final decision in the morning Current Visit: Yes (2) Colon obstruction Status: Resolved Current Visit: Yes (3) Fistula, colovaginal Status: Resolved Current Visit: No (4) Type 2 diabetes mellitus, without long-term current use of insulin Status: Chronic Current Visit: No (5) correction current use of anticoagulant therapy Problem details: Hx of recurrent with positive Factor V Leiden-chronic anticoagulation. Status: Chronic Current Visit: No (6) Essential hypertension Problem details: Chronically abnormal ECG; cardiolite normal in 2006. Status: Chronic Current Visit: No (7) Chronic obstructive pulmonary disease Problem details: Continued tobacco use and probable chronic bronchitiis. Hx of positive PPD at age 18; last chest x-ray 08/2012. 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 Status: Chronic Current Visit: No - Time Spent With Patient Total time spent is greater than 50% in coordination of care (as documented) at patient's floor/unit and/or counseling patient:
[2018-11-03] MEDS ORDERED: POTASSIUM PHOSPHATE 40 MEQ in DEXTROSE 5% IN WATER 500 ML IV ONE (18:00)
[2018-11-03] MEDS: DOXEPIN 10 MG CAPSULE PO SCH (22:19)
[2018-11-04] MEDS: METOCLOPRAMIDE 10 MG/2 ML VIAL IV SCH ×3 (00:34→11:35)
[2018-11-04] MEDS: PIPERACILLIN SODIUM/TAZOBACTAM 3.375 GM in DEXTROSE 5% IN WATER 50 ML IV SCH ×3 (00:34→11:35)
[2018-11-04] MEDS: 0.9 % SODIUM CHLORIDE 1,000 ML IV SCH ×2 (04:56→13:44)
[2018-11-04] MEDS: metroNIDAZOLE 500 MG/100 ML BAG IV SCH ×2 (04:59→12:22)
[2018-11-04 06:17] LABS: Basophils # (Auto) 0.1 K/mcL (0.0-0.3); Basophils % (Auto) 0.5 % (0.0-2.0); Eosinophils # (Auto) 0.2 K/mcL (0.0-0.7); Eosinophils % (Auto) 2.4 % (0.0-7.0); Granulocytes % (Auto) 71.9 % (38.0-78.0); Lymphocytes # (Auto) 1.8 K/mcL (1.5-4.8); Lymphocytes % (Auto) 17.4 % (15.5-49.0); Mean Cell Volume 84.9 fL (80.0-100.0); Monocytes # (Auto) 0.8 K/mcL (0.1-0.9); Monocytes % (Auto) 7.8 % (1.0-12.0); Platelet Count 299 K/mcL (140-440); RBC 3.69 M/mcL (4.00-5.20); Red Cell Distribution Width 16.2 % (11.5-14.5)
[2018-11-04 06:22] LABS: ALT/SGPT 6 U/l (0-40); Albumin 2.1 gm/dL (3.2-5.2); Albumin/Globulin Ratio 0.8 (1.0-2.3); Alkaline Phosphatase 36 U/L (39-117); Bilirubin,Direct < 0.2 mg/dL (0.0-0.3); Blood Urea Nitrogen 3 mg/dl (8-23); Gamma Glutamyl Transpeptidase 16 U/L (5-36); Uric Acid 1.7 mg/dL (2.5-8.0)
[2018-11-04] MEDS: PANTOPRAZOLE 40 MG VIAL IV SCH (07:25)
[2018-11-04] MEDS: INSULIN LISPRO 1 UNIT/0.01 ML UNIT SQ SCH ×2 (07:26→11:45)
[2018-11-04] MEDS ORDERED: POTASSIUM PHOSPHATE 40 MEQ in DEXTROSE 5% IN WATER 500 ML IV ONE (08:00)
[2018-11-04] MEDS: METOPROLOL SUCCINATE 50 MG TAB.XL.24H PO SCH (09:21)
[2018-11-04] MEDS: MAGNESIUM HYDROXIDE 30 ML ORAL.SUSP PO SCH (09:21)
[2018-11-04] MEDS: ENOXAPARIN 30 MG/0.3 ML SYRINGE SQ SCH (09:23)
[2018-11-04] MEDS: Empagliflozin [Jardiance] 25 MG PO SCH (09:23)
[2018-11-04] MEDS: oxyCODONE HCL 5 MG TABLET PO PRN (09:23)
[2018-11-04] MEDS: ACETAMINOPHEN 325 MG TABLET PO PRN (12:34)
--- NOTE | 2018-11-04 13:10 | Discharge Summary ---
Providers - Providers Patient information: Note initiated : 11/04/18 at 1:02 pm Service Date, if different from initiated Date: [] Patient: Brit Alonzo 78 y/o F admitted on 10/23/18 for Exploratory Laparotomy:poss Colectomy with . Chief Complaint: [] Date of admission: 10/23/18 Discharge date: 11/04/18 Attending physician: Angelia Blount Hospitalization Hospital course: 78-year-old female admitted on 23 October with sigmoid colon obstruction. She has a long history of diverticulitis dating back to November 2017 when she presented with pneumaturia and air per vagina. She was felt to have a connection of the bladder to the colon, as well as the apex of the vagina. She was advised to have operative therapy at that time, but she elected to wait. She states that she has been doing well but had developed urinary incontinence and urgency over the past 4 weeks. On the Wednesday prior to admission she developed severe abdominal pain followed by nausea and vomiting. She had not had bowel movements for many days. She took [id number] laxatives and suppositories without results. Her abdomen became progressively tighter. She finally came to the emergency room. There was noted that she had dilation of her entire colon leading down to her sigmoid. Small bowel was not dilated. She also had pneumaturia. Because the patient was anticoagulated with Coumadin. Her PT/INR were called corrected with vitamin K and fresh frozen plasma. She was explored on 24 October and was found to have an extensive phlegmon of the sigmoid colon, small bowel, bladder with a large abscess between the colon and bladder and total obstruction of the distal sigmoid colon at the peritoneal reflection. There was massive dilation of the proximal colon and decompressed small bowel. An attempt was made to resect the massive phlegmon, but it was technically to adherent stool was elected to do an in sigmoid colostomy with Rowe's pouch. Pelvis was drained. She was treated with Vantin antibiotics. Cultures grew out Klebsiella, Citrobacter, Bacteroides, Clostridium, and Peptostreptococcus. She has done well. She started having flatus on 28 October and by 30 October her colon had large volume. Clinically met. She is doing well. Her incision is healing and she has minimal output through her drains. She is tolerating regular diet. White blood count is 10.1, hemoglobin 10 and hematocrit 31.3. Patient is clinically stable and will be transferred to care home facility. She can be treated with ciprofloxacin and metronidazole for 2 more weeks as an inpatient in the nursing care facility. Plan is for reexploration in 3 months with probable excision of the involved the sigmoid segment and re-anastomosis. Discharge diagnosis: diverticulitis with perforation Secondary discharge diagnosis: Pelvic abscess and phlegmon. Colovesical fistula. Henderson- Vaginal fistula. Diabetes mellitus. Leiden factor V deficiency Chronic obstructive pulmonary disease. Long-term use of anticoagulant therapy. Chronic sleep disorder. Cervical disc disease Reason for admission: abdominal pain Procedures: Laparotomy with drainage of pelvic abscess. Sigmoid colostomy with Rowe's pouch Pertinent studies/significant findings: CT of abdomen and pelvis with contrast Complications: None Exam Temp Pulse Resp BP Pulse Ox 98.1 F 73 15 151/81 92 11/04/18 06:33 11/04/18 11:39 11/04/18 11:39 11/04/18 11:39 11/04/18 11:39 - General physical appearance well developed, well nourished, no distress - Eyes PERRL, normal ocular movement - ENT normal pinna, normal nares, normal mucosa, no hearing loss, no congestion - Head Head exam IM: Present: atraumatic, normocephalic - Neck no masses, no bruits, trachea midline, no lymphadenopathy, no venous distension - Cardiovascular Cardiovascular exam IM: Present: normal rate and rhythm, RRR, +S1, +S2. Absent: JVD, tachycardia - Respiratory normal expansion, normal respiratory effort, clear to percussion, clear to auscultation - Abdomen Abdomen: Present: soft, tender (mild tenderness of incision and the round drains; drains with serous drainage), bowel sounds Hernia: Present: none - Genitourinary Present: normal external genitalia - Integumentary Present: no rash, no growths, no abnormal pigmentation - Neurologic Present: normal coordination, normal sensation - Musculoskeletal Present: normal gait, normal posture - Psychiatric Present: oriented to time, oriented to person, oriented to place, speech is normal, memory intact Discharge Plan - Patient/Caregiver Discharge Instructions Activity: as per physical therapy Diet: Regular Diet Additional Instructions: Nursing care facility to remove darshan on November 18 Patient care facility to remove drains on November 18 Follow-up appointment with me on 29 November or December 18 Prescriptions: Ciprofloxacin [Cipro] 500 mg PO BID #40 tab metroNIDAZOLE [Flagyl] 500 mg PO Q8 #60 tab oxyCODONE HCL [Roxicodone] 10 mg PO Q4HP PRN #30 tab PRN Reason: Pain Level 3-6 Other Amb Orders: OT Discharge Order Location: None Selected Physical Therapy at Discharge - General Location: None Selected - Follow up Plan Follow up with: Mracus Russo MD [Primary Care Provider] - Angelia Blount MD [Physician] - (Please call and schedule surgical follow up.) Disposition: Xfer SNF Prognosis: Good Rehab Potential: Good I certify that the patient requires SNF services.: No Overall status at discharge: patient is not back to baseline Pending Studies Resuscitation Status Full Code Diet GI Soft/Transitional Start WedNov 01 1325 Acetaminophen (Tylenol) 650 mg PO Q6HP PRN PRN Reason: Pain Last Admin: 11/04/18 12:34 Dose: 650 mg Documented by: [email or web address] Admin: 11/02/18 19:52 Dose: 650 mg Documented by: HERLINDA Diagnostic Test (Pha) (Accu-Chek) 1 each FS ACHS WINNIE; Protocol Last Admin: 11/04/18 11:35 Dose: 1 each Documented by: Admin: 11/04/18 07:25 Dose: 1 each Documented by: Admin: 11/03/18 22:06 Dose: 1 each Documented by: Admin: 11/03/18 16:44 Dose: 1 each Documented by: Admin: 11/03/18 11:30 Dose: 1 each Documented by: Admin: 11/03/18 08:37 Dose: 1 each Documented by: Admin: 11/02/18 22:16 Dose: 1 each Documented by: Admin: 11/02/18 17:46 Dose: 1 each Documented by: Admin: 11/02/18 12:17 Dose: 1 each Documented by: Admin: 11/02/18 08:33 Dose: 1 each Documented by: Admin: 11/01/18 20:43 Dose: 1 each Documented by: Admin: 11/01/18 16:12 Dose: 1 each Documented by: Admin: 11/01/18 11:05 Dose: 1 each Documented by: Admin: 11/01/18 07:45 Dose: 1 each Documented by: Admin: 10/31/18 21:57 Dose: 1 each Documented by: [email or web address] Doxepin HCl (Sinequan) 10 mg PO QHS [facility] Last Admin: 11/03/18 22:19 Dose: 10 mg Documented by: Admin: 11/02/18 22:26 Dose: 10 mg Documented by: Admin: 11/01/18 20:41 Dose: 10 mg Documented by: Admin: 10/31/18 21:56 Dose: 10 mg Documented by: [email or web address] Enoxaparin Sodium (Lovenox) 30 mg SQ DAILY [facility] Last Admin: 11/04/18 09:23 Dose: 30 mg Documented by: Admin: 11/03/18 08:53 Dose: 30 mg Documented by: Admin: 11/02/18 09:05 Dose: 30 mg Documented by: Admin: 11/01/18 10:00 Dose: 30 mg Documented by: Admin: 10/31/18 09:01 Dose: 30 mg Documented by: Admin: 10/30/18 09:34 Dose: 30 mg Documented by: Admin: 10/29/18 09:40 Dose: 30 mg Documented by: [email or web address] Admin: 10/28/18 08:08 Dose: 30 mg Documented by: Admin: 10/27/18 09:44 Dose: 30 mg Documented by: Admin: 10/26/18 09:37 Dose: 30 mg Documented by: Admin: 10/25/18 09:40 Dose: 30 mg Documented by: [email or web address] Hydromorphone HCl (Dilaudid) 1 mg IV Q2HP PRN PRN Reason: PAIN LEVEL > 6 Last Admin: 10/31/18 14:49 Dose: 1 mg Documented by: Admin: 10/31/18 09:08 Dose: 1 mg Documented by: Admin: 10/31/18 01:03 Dose: 1 mg Documented by: Admin: 10/30/18 18:58 Dose: 1 mg Documented by: Admin: 10/30/18 14:03 Dose: 1 mg Documented by: Admin: 10/30/18 09:34 Dose: 1 mg Documented by: Admin: 10/30/18 06:54 Dose: 1 mg Documented by: Admin: 10/30/18 00:22 Dose: 1 mg Documented by: Admin: 10/29/18 21:54 Dose: 1 mg Documented by: [email or web address] Admin: 10/29/18 14:42 Dose: 1 mg Documented by: [email or web address] Admin: 10/29/18 12:47 Dose: 1 mg Documented by: [email or web address] Admin: 10/29/18 09:57 Dose: 1 mg Documented by: [email or web address] Admin: 10/29/18 06:58 Dose: 1 mg Documented by: [email or web address] Admin: 10/29/18 01:19 Dose: 1 mg Documented by: Admin: 10/28/18 20:50 Dose: 1 mg Documented by: Admin: 10/28/18 18:09 Dose: 1 mg Documented by: Admin: 10/28/18 14:31 Dose: 1 mg Documented by: Admin: 10/28/18 11:58 Dose: 1 mg Documented by: Admin: 10/28/18 06:58 Dose: 1 mg Documented by: Admin: 10/28/18 00:51 Dose: 1 mg Documented by: Admin: 10/27/18 19:02 Dose: 1 mg Documented by: Admin: 10/27/18 15:20 Dose: 1 mg Documented by: Admin: 10/27/18 11:07 Dose: 1 mg Documented by: Admin: 10/27/18 07:37 Dose: 1 mg Documented by: Admin: 10/26/18 22:19 Dose: 1 mg Documented by: Admin: 10/26/18 15:29 Dose: 1 mg Documented by: Admin: 10/26/18 11:27 Dose: 1 mg Documented by: Admin: 10/26/18 05:14 Dose: 1 mg Documented by: Admin: 10/25/18 22:29 Dose: 1 mg Documented by: Admin: 10/25/18 18:31 Dose: 1 mg Documented by: [email or web address] Admin: 10/25/18 15:05 Dose: 1 mg Documented by: [email or web address] Admin: 10/25/18 11:24 Dose: 1 mg Documented by: [email or web address] Admin: 10/25/18 05:49 Dose: 1 mg Documented by: Admin: 10/24/18 22:48 Dose: 1 mg Documented by: HERLINDA Piperacillin Sod/Tazobactam (Sod 3.375 gm/ Dextrose) 50 mls @ 100 mls/hr IV Q6H WINNIE; Protocol Last Infusion: 11/04/18 12:44 Dose: 0 mls/hr Documented by: [email or web address] Admin: 11/04/18 11:35 Dose: 100 mls/hr Documented by: Infusion: 11/04/18 09:29 Dose: 0 mls/hr Documented by: Admin: 11/04/18 06:14 Dose: 100 mls/hr Documented by: Infusion: 11/04/18 02:30 Dose: 0 mls/hr Documented by: Admin: 11/04/18 00:34 Dose: 100 mls/hr Documented by: Infusion: 11/03/18 22:07 Dose: 0 mls/hr Documented by: Admin: 11/03/18 17:53 Dose: 100 mls/hr Documented by: Infusion: 11/03/18 12:33 Dose: 0 mls/hr Documented by: Admin: 11/03/18 11:37 Dose: 100 mls/hr Documented by: Infusion: 11/03/18 08:38 Dose: 0 mls/hr Documented by: Admin: 11/03/18 06:14 Dose: 100 mls/hr Documented by: Infusion: 11/03/18 05:09 Dose: 0 mls/hr Documented by: Admin: 11/03/18 00:13 Dose: 100 mls/hr Documented by: Infusion: 11/02/18 22:30 Dose: 0 mls/hr Documented by: Admin: 11/02/18 19:53 Dose: 100 mls/hr Documented by: Infusion: 11/02/18 16:35 Dose: 0 mls/hr Documented by: Admin: 11/02/18 13:13 Dose: 100 mls/hr Documented by: Infusion: 11/02/18 06:27 Dose: 0 mls/hr Documented by: Admin: 11/02/18 05:57 Dose: 100 mls/hr Documented by: Infusion: 11/02/18 00:39 Dose: 0 mls/hr Documented by: Admin: 11/01/18 23:48 Dose: 100 mls/hr Documented by: Infusion: 11/01/18 19:03 Dose: 0 mls/hr Documented by: Admin: 11/01/18 17:55 Dose: 100 mls/hr Documented by: Infusion: 11/01/18 14:13 Dose: 100 mls/hr Documented by: Admin: 11/01/18 11:08 Dose: 100 mls/hr Documented by: Infusion: 11/01/18 06:34 Dose: 0 mls/hr Documented by: Admin: 11/01/18 06:04 Dose: 100 mls/hr Documented by: Infusion: 11/01/18 01:10 Dose: 0 mls/hr Documented by: Admin: 11/01/18 00:40 Dose: 100 mls/hr Documented by: Infusion: 10/31/18 18:15 Dose: 0 mls/hr Documented by: Admin: 10/31/18 17:45 Dose: 100 mls/hr Documented by: [email or web address] Infusion: 10/31/18 13:19 Dose: 100 mls/hr Documented by: [email or web address] Admin: 10/31/18 12:49 Dose: 100 mls/hr Documented by: [email or web address] Infusion: 10/31/18 06:03 Dose: 0 mls/hr Documented by: Admin: 10/31/18 05:18 Dose: 100 mls/hr Documented by: Infusion: 10/31/18 00:10 Dose: 0 mls/hr Documented by: Admin: 10/30/18 23:37 Dose: 100 mls/hr Documented by: Infusion: 10/30/18 19:15 Dose: 0 mls/hr Documented by: Admin: 10/30/18 18:41 Dose: 100 mls/hr Documented by: Infusion: 10/30/18 14:08 Dose: 0 mls/hr Documented by: Admin: 10/30/18 11:36 Dose: 100 mls/hr Documented by: Infusion: 10/30/18 06:54 Dose: 0 mls/hr Documented by: Admin: 10/30/18 05:56 Dose: 100 mls/hr Documented by: Infusion: 10/30/18 02:06 Dose: 0 mls/hr Documented by: Admin: 10/30/18 00:12 Dose: 100 mls/hr Documented by: Infusion: 10/29/18 18:15 Dose: 0 mls/hr Documented by: Admin: 10/29/18 17:45 Dose: 100 mls/hr Documented by: Infusion: 10/29/18 12:12 Dose: 100 mls/hr Documented by: Admin: 10/29/18 11:42 Dose: 100 mls/hr Documented by: Infusion: 10/29/18 06:30 Dose: 100 mls/hr Documented by: [email or web address] Admin: 10/29/18 06:00 Dose: 100 mls/hr Documented by: Infusion: 10/29/18 00:30 Dose: 0 mls/hr Documented by: Admin: 10/28/18 23:56 Dose: 100 mls/hr Documented by: Infusion: 10/28/18 18:30 Dose: 0 mls/hr Documented by: Admin: 10/28/18 17:51 Dose: 100 mls/hr Documented by: Infusion: 10/28/18 12:26 Dose: 100 mls/hr Documented by: Admin: 10/28/18 11:56 Dose: 100 mls/hr Documented by: Infusion: 10/28/18 05:50 Dose: 0 mls/hr Documented by: Admin: 10/28/18 05:16 Dose: 100 mls/hr Documented by: Infusion: 10/28/18 00:35 Dose: 0 mls/hr Documented by: Admin: 10/28/18 00:00 Dose: 100 mls/hr Documented by: Infusion: 10/27/18 18:30 Dose: 0 mls/hr Documented by: Admin: 10/27/18 17:58 Dose: 100 mls/hr Documented by: Infusion: 10/27/18 12:58 Dose: 100 mls/hr Documented by: Admin: 10/27/18 12:28 Dose: 100 mls/hr Documented by: Infusion: 10/27/18 05:51 Dose: 100 mls/hr Documented by: Admin: 10/27/18 05:21 Dose: 100 mls/hr Documented by: Infusion: 10/26/18 23:43 Dose: 100 mls/hr Documented by: Admin: 10/26/18 23:13 Dose: 100 mls/hr Documented by: Infusion: 10/26/18 18:42 Dose: 100 mls/hr Documented by: Admin: 10/26/18 18:12 Dose: 100 mls/hr Documented by: Infusion: 10/26/18 12:25 Dose: 0 mls/hr Documented by: [email or web address] Admin: 10/26/18 11:48 Dose: 100 mls/hr Documented by: Infusion: 10/26/18 05:44 Dose: 100 mls/hr Documented by: Admin: 10/26/18 05:14 Dose: 100 mls/hr Documented by: Infusion: 10/25/18 23:56 Dose: 100 mls/hr Documented by: Admin: 10/25/18 23:26 Dose: 100 mls/hr Documented by: Infusion: 10/25/18 19:06 Dose: 100 mls/hr Documented by: Admin: 10/25/18 18:36 Dose: 100 mls/hr Documented by: [email or web address] Infusion: 10/25/18 12:45 Dose: 0 mls/hr Documented by: [email or web address] Admin: 10/25/18 12:01 Dose: 100 mls/hr Documented by: [email or web address] Infusion: 10/25/18 07:25 Dose: 0 mls/hr Documented by: [email or web address] Admin: 10/25/18 06:35 Dose: 100 mls/hr Documented by: [email or web address] Infusion: 10/25/18 05:53 Dose: 0 mls/hr Documented by: Admin: 10/25/18 00:29 Dose: 100 mls/hr Documented by: Infusion: 10/24/18 20:47 Dose: 0 mls/hr Documented by: Admin: 10/24/18 20:10 Dose: 100 mls/hr Documented by: HERLINDA Sodium Chloride (Sodium Chloride 0.9%) 1,000 mls @ 50 mls/hr IV .Q20H WINNIE [facility] Admin: 11/04/18 04:56 Dose: 50 mls/hr Documented by: [email or web address] Infusion: 11/04/18 00:42 Dose: 50 mls/hr Documented by: [email or web address] Admin: 11/03/18 22:53 Dose: Not Given Documented by: Admin: 11/03/18 04:42 Dose: 50 mls/hr Documented by: Admin: 11/01/18 22:46 Dose: Not Given Documented by: Infusion: 11/01/18 17:56 Dose: 0 mls/hr Documented by: Admin: 11/01/18 03:19 Dose: 50 mls/hr Documented by: [email or web address] Infusion: 10/31/18 18:18 Dose: 50 mls/hr Documented by: [email or web address] Admin: 10/31/18 10:24 Dose: Not Given Documented by: [email or web address] Admin: 10/30/18 22:18 Dose: 50 mls/hr Documented by: Infusion: 10/30/18 22:18 Dose: 50 mls/hr Documented by: Admin: 10/30/18 20:42 Dose: 50 mls/hr Documented by: Admin: 10/29/18 14:39 Dose: Not Given Documented by: [email or web address] Metronidazole (Flagyl) 500 mg in 100 mls @ 100 mls/hr IV Q6H WINNIE; Protocol Last Admin: 11/04/18 12:22 Dose: 100 mls/hr Documented by: Infusion: 11/04/18 06:15 Dose: 0 mls/hr Documented by: Admin: 11/04/18 04:59 Dose: 100 mls/hr Documented by: Infusion: 11/04/18 00:35 Dose: 0 mls/hr Documented by: Admin: 11/03/18 23:25 Dose: 100 mls/hr Documented by: Infusion: 11/03/18 22:21 Dose: 0 mls/hr Documented by: Admin: 11/03/18 17:53 Dose: 100 mls/hr Documented by: Infusion: 11/03/18 16:46 Dose: 0 mls/hr Documented by: Admin: 11/03/18 12:31 Dose: 100 mls/hr Documented by: Infusion: 11/03/18 06:14 Dose: 0 mls/hr Documented by: Admin: 11/03/18 04:43 Dose: 100 mls/hr Documented by: Infusion: 11/03/18 00:12 Dose: 0 mls/hr Documented by: Admin: 11/02/18 22:29 Dose: 100 mls/hr Documented by: Infusion: 11/02/18 20:01 Dose: 0 mls/hr Documented by: Admin: 11/02/18 17:43 Dose: 100 mls/hr Documented by: Infusion: 11/02/18 14:13 Dose: 0 mls/hr Documented by: Admin: 11/02/18 13:13 Dose: 100 mls/hr Documented by: [email or web address] Insulin Human Lispro (Humalog) 0 unit SQ ACHS WINNIE; Protocol Last Admin: 11/04/18 11:45 Dose: 6 units Documented by: Admin: 11/04/18 07:26 Dose: Not Given Documented by: Admin: 11/03/18 22:17 Dose: 2 units Documented by: Admin: 11/03/18 16:53 Dose: 2 units Documented by: Admin: 11/03/18 11:47 Dose: 4 units Documented by: Admin: 11/03/18 08:53 Dose: 2 units Documented by: Admin: 11/02/18 22:26 Dose: 6 units Documented by: Admin: 11/02/18 17:46 Dose: 4 units Documented by: Admin: 11/02/18 12:17 Dose: Not Given Documented by: Admin: 11/02/18 08:33 Dose: Not Given Documented by: Admin: 11/01/18 21:03 Dose: 4 units Documented by: Admin: 11/01/18 16:33 Dose: 2 units Documented by: Admin: 11/01/18 14:10 Dose: 6 units Documented by: Admin: 11/01/18 07:46 Dose: Not Given Documented by: TORIBIO Lorazepam (Ativan) 1 mg IV Q6HP PRN PRN Reason: ANXIETY/SEDATION Last Admin: 11/02/18 22:44 Dose: 1 mg Documented by: Admin: 10/29/18 16:19 Dose: 1 mg Documented by: [email or web address] Magnesium Hydroxide (Milk Of Magnesia) 30 ml PO BID WINNIE Last Admin: 11/04/18 09:21 Dose: 30 ml Documented by: Admin: 11/03/18 22:18 Dose: 30 ml Documented by: Admin: 11/03/18 08:56 Dose: 30 ml Documented by: Admin: 11/02/18 22:26 Dose: 30 ml Documented by: Admin: 11/02/18 09:04 Dose: 30 ml Documented by: Admin: 11/01/18 20:44 Dose: Not Given Documented by: Admin: 11/01/18 10:00 Dose: Not Given Documented by: Admin: 10/31/18 22:01 Dose: Not Given Documented by: Admin: 10/31/18 09:02 Dose: 30 ml Documented by: [email or web address] Admin: 10/30/18 22:17 Dose: 30 ml Documented by: Admin: 10/30/18 09:34 Dose: 30 ml Documented by: Admin: 10/29/18 21:35 Dose: 30 ml Documented by: [email or web address] Metoclopramide HCl (Reglan) 10 mg IV Q6 WINNIE [facility] Admin: 11/04/18 11:35 Dose: 10 mg Documented by: Admin: 11/04/18 06:14 Dose: 10 mg Documented by: Admin: 11/04/18 00:34 Dose: 10 mg Documented by: Admin: 11/03/18 17:53 Dose: 10 mg Documented by: Admin: 11/03/18 11:32 Dose: 10 mg Documented by: Admin: 11/03/18 06:14 Dose: 10 mg Documented by: Admin: 11/03/18 00:11 Dose: 10 mg Documented by: Admin: 11/02/18 18:03 Dose: 10 mg Documented by: Admin: 11/02/18 13:14 Dose: 10 mg Documented by: Admin: 11/02/18 05:57 Dose: 10 mg Documented by: Admin: 11/01/18 23:48 Dose: 10 mg Documented by: Admin: 11/01/18 16:33 Dose: 10 mg Documented by: Admin: 11/01/18 14:10 Dose: 10 mg Documented by: Admin: 11/01/18 06:03 Dose: 10 mg Documented by: Admin: 11/01/18 00:40 Dose: 10 mg Documented by: Admin: 10/31/18 17:45 Dose: 10 mg Documented by: Admin: 10/31/18 12:49 Dose: 10 mg Documented by: Admin: 10/31/18 05:58 Dose: 10 mg Documented by: Admin: 10/30/18 23:37 Dose: 10 mg Documented by: Admin: 10/30/18 18:41 Dose: 10 mg Documented by: Admin: 10/30/18 11:36 Dose: 10 mg Documented by: Admin: 10/30/18 05:56 Dose: 10 mg Documented by: Admin: 10/30/18 00:12 Dose: 10 mg Documented by: Admin: 10/29/18 17:44 Dose: 10 mg Documented by: Admin: 10/29/18 11:42 Dose: 10 mg Documented by: [email or web address] Admin: 10/29/18 06:00 Dose: 10 mg Documented by: Admin: 10/28/18 23:55 Dose: 10 mg Documented by: Admin: 10/28/18 17:52 Dose: 10 mg Documented by: Admin: 10/28/18 11:56 Dose: 10 mg Documented by: Admin: 10/28/18 05:16 Dose: 10 mg Documented by: Admin: 10/28/18 00:00 Dose: 10 mg Documented by: Admin: 10/27/18 17:58 Dose: 10 mg Documented by: Admin: 10/27/18 12:27 Dose: 10 mg Documented by: Admin: 10/27/18 05:21 Dose: 10 mg Documented by: Admin: 10/26/18 23:13 Dose: 10 mg Documented by: Admin: 10/26/18 18:12 Dose: 10 mg Documented by: Admin: 10/26/18 11:49 Dose: 10 mg Documented by: Admin: 10/26/18 05:14 Dose: 10 mg Documented by: Admin: 10/25/18 23:26 Dose: 10 mg Documented by: Admin: 10/25/18 18:33 Dose: 10 mg Documented by: [email or web address] Admin: 10/25/18 11:59 Dose: 10 mg Documented by: AEVannesa Admin: 10/25/18 05:50 Dose: 10 mg Documented by: Admin: 10/25/18 00:29 Dose: 10 mg Documented by: Admin: 10/24/18 20:11 Dose: 10 mg Documented by: HERLINDA Metoprolol Succinate (Toprol Xl) 50 mg PO BID WINNIE Last Admin: 11/04/18 09:21 Dose: 50 mg Documented by: Admin: 11/03/18 22:19 Dose: 50 mg Documented by: Admin: 11/03/18 08:55 Dose: 50 mg Documented by: Admin: 11/02/18 22:26 Dose: 50 mg Documented by: Admin: 11/02/18 09:05 Dose: 50 mg Documented by: Admin: 11/01/18 20:41 Dose: 50 mg Documented by: Admin: 11/01/18 10:00 Dose: 50 mg Documented by: Admin: 10/31/18 21:56 Dose: 50 mg Documented by: [email or web address] Oxycodone HCl (Roxicodone) 10 mg PO Q4HP PRN PRN Reason: PAIN LEVEL 3-6 Last Admin: 11/04/18 09:23 Dose: 10 mg Documented by: Admin: 11/03/18 22:22 Dose: 10 mg Documented by: Admin: 11/03/18 17:52 Dose: 10 mg Documented by: Admin: 11/03/18 11:32 Dose: 10 mg Documented by: Admin: 11/03/18 05:13 Dose: 10 mg Documented by: Admin: 11/02/18 15:54 Dose: 10 mg Documented by: Admin: 11/02/18 11:00 Dose: 10 mg Documented by: Admin: 11/02/18 04:54 Dose: 10 mg Documented by: Admin: 11/02/18 00:06 Dose: 10 mg Documented by: Admin: 11/01/18 19:01 Dose: 10 mg Documented by: Admin: 11/01/18 14:11 Dose: 10 mg Documented by: Admin: 11/01/18 10:00 Dose: 10 mg Documented by: Admin: 11/01/18 01:42 Dose: 10 mg Documented by: Admin: 10/31/18 20:08 Dose: 10 mg Documented by: SVEN Pantoprazole Sodium (Protonix) 40 mg IV BIDAC [facility] Admin: 11/04/18 07:25 Dose: 40 mg Documented by: Admin: 11/03/18 16:54 Dose: 40 mg Documented by: Admin: 11/03/18 08:37 Dose: 40 mg Documented by: Admin: 11/02/18 17:43 Dose: 40 mg Documented by: Admin: 11/02/18 08:33 Dose: 40 mg Documented by: Admin: 11/01/18 16:33 Dose: 40 mg Documented by: Admin: 11/01/18 07:45 Dose: 40 mg Documented by: Admin: 10/31/18 16:56 Dose: 40 mg Documented by: Admin: 10/31/18 07:12 Dose: 40 mg Documented by: Admin: 10/30/18 18:41 Dose: 40 mg Documented by: Admin: 10/30/18 06:54 Dose: 40 mg Documented by: Admin: 10/29/18 17:44 Dose: 40 mg Documented by: Admin: 10/29/18 06:58 Dose: 40 mg Documented by: [email or web address] Admin: 10/28/18 17:52 Dose: 40 mg Documented by: Admin: 10/28/18 06:50 Dose: 40 mg Documented by: Admin: 10/27/18 17:07 Dose: 40 mg Documented by: Admin: 10/27/18 07:37 Dose: 40 mg Documented by: Admin: 10/26/18 17:01 Dose: 40 mg Documented by: Admin: 10/26/18 07:53 Dose: 40 mg Documented by: Admin: 10/25/18 18:30 Dose: 40 mg Documented by: [email or web address] Admin: 10/25/18 07:32 Dose: 40 mg Documented by: [email or web address] Admin: 10/24/18 20:10 Dose: 40 mg Documented by: HERLINDA Empagliflozin [ (Jardiance] 25 Mg) 1 dose PO QAM WINNIE [facility] Admin: 11/04/18 09:23 Dose: Not Given Documented by: Admin: 11/03/18 08:56 Dose: Not Given Documented by: Admin: 11/02/18 09:05 Dose: Not Given Documented by: Admin: 11/01/18 10:12 Dose: Not Given Documented by: TORIBIO Shift Summary 11/04/18 05:16 Shift Summary by Salomon Hamilton&Ralf4. Ambulated in the halls about 50feet with 2 assist, FWW, gait belt yesterday with good output from colostomy reported from day shift; overnight, incontinent several times large amounts of urine with pt refusing to walk to the bathroom d/t incontinence; did not want to get up for another walk in the [place] as she was very tired; medicated for pain x1 with pt observed sleeping between cares all night; dressings to midline and EVIN drains changed d/t drainage and appearance of red increasing around darshan; cleansed with chlorhexedine scrub and applied skin prep with new dressings; small area of dehiscense central to the midline incision noticed barely noticable yesterday. IVF, IV abx, and elyte replacement ongoing. Will update at bedside. Initialized on 11/04/18 05:16 - END OF NOTE
--- NOTE | 2018-11-08 15:00 | Operative Note ---
DATE OF OPERATION: 10/24/2018 PREOPERATIVE DIAGNOSIS: Sigmoid colon obstruction. POSTOPERATIVE DIAGNOSIS: Perforated diverticulitis with massive phlegmon at pelvis with abscess and sigmoid colon obstruction. PROCEDURE: Laparotomy with drainage of pelvic abscess, sigmoid colostomy with Luciano's pouch. FINDINGS: Extensive phlegmon of sigmoid colon, small bowel and bladder with large abscess between the colon and the bladder, and this total obstruction of the distal sigmoid at the peritoneal reflection, Massive dilation of the proximal colon and decompressed small bowel. DESCRIPTION OF PROCEDURE: Under general anesthesia, patient's abdomen was prepped and draped in the sterile field. A time-out procedure was carried out as per protocol. A midline incision was made. The colon was significantly dilated and this dilation extended down to the pelvis. There was a large phlegmon in the left lower quadrant extending into the pelvis involving colon, small bowel, and bladder. Using blunt dissection, the colon above the peritoneal reflection was dissected. That portion which was adherent to the bladder was dissected initially. This was performed with blunt dissection. A large abscess cavity was entered and this fluid was cultured and then suctioned and irrigated. Further dissection down to the base of the bladder was carried out, but I could not find any planes to dissect any further. The small bowel was from the inflammatory mass. It was secondarily inflamed but otherwise was decompressed and was uninvolved. Next, I found an area proximal to the inflamed tissue and at this point divided the sigmoid colon. This was done with a contour stapler. I tried to dissect the colon down into the pelvis and the hollow of the sacrum, but this too was severely inflamed and could not be dissected. It was felt that it would be best to wait until the severe inflammatory reaction resolved and attempt dissection later so that we would not injure any bowel that might be useful for later reapproximation. Copious irrigation was carried out again. An opening for the stoma was made in the left lower quadrant about half the distance between the umbilicus and anterior superior iliac spine. The end of the colon was brought through this and it was easily mobilized. I had to mobilize the proximal sigmoid and distal descending colon some so that the stoma would not be under tension. The wall of the colon was sutured to the peritoneum circumferentially and the lateral wall of the colon was sutured to the peritoneum to prevent herniation. Once this was done, EVIN drains were placed. One was placed in the left lower quadrant and two were placed in the pelvis, one anterior to the colon between the colon and the bladder and the other one posterior to the colon and the hollow of the sacrum. Sponge, needle, instrument and blade counts were verified as correct. The fascia and peritoneum were closed with running #1 Prolene. Subcutaneous tissue was irrigated and closed with running 2-0 Monocryl. The skin was closed with darshan. The incision was covered and the stoma was matured. The wall of the colon was sutured to the anterior rectus fascia with multiple sutures of interrupted 3-0 silk. The end of the colon was excised and the full thickness of the colon wall was then sutured to the dermis using running locking 3-0 Vicryl. The stoma was viable. A stoma appliance was placed. The patient tolerated the procedure well. Tegaderm was placed over the incision. The patient was awakened and transferred to a bed and taken to the postanesthetic care unit in a stable, satisfactory condition. LCS:ibrahima Job ID: [id number] Doc ID: [id number] Angelia Blount M.D.
== END 2018-11-04 15:52 | DRG 330 ==
LOC: ED 21:31 → MEDSUR 10-23 02:20
PROVIDERS: ADMIT Family Medicine Adult Medicine; ATTEND Family Medicine Adult Medicine

== ENCOUNTER 2019-04-05 05:04 | Inpatient (IN) ==
--- NOTE | 2019-03-30 14:02 | XRay Report ---
HISTORY: Preop for colostomy takedown FINDINGS: There is minor parenchymal scarring posteriorly at the left lung base. Larger band of scar or discoid atelectasis was seen in this location on 07/04/16. The remainder of the lung baxter are clear. There is no pleural effusion or adenopathy. The heart size and pulmonary vasculature are normal. The aorta is mildly tortuous. Spine has a mild kyphosis. IMPRESSION: No acute abnormality Interpreted and Authenticated by: Bam Dalal 03/30/19
[2019-03-30 14:46] LABS: Basophils # (Auto) 0 K/mcL (0.0-0.3); Basophils % (Auto) 0.5 % (0.0-2.0); Eosinophils # (Auto) 0.1 K/mcL (0.0-0.7); Eosinophils % (Auto) 1.6 % (0.0-7.0); Granulocytes % (Auto) 69.8 % (38.0-78.0); Hematocrit 46.1 % (36.0-48.0); Lymphocytes % (Auto) 23.8 % (15.5-49.0); Mean Cell Volume 81.4 fL (80.0-100.0); Mean Corpuscular HGB Conc 32.4 g/dL (31.0-36.0); Monocytes # (Auto) 0.4 K/mcL (0.1-0.9); Monocytes % (Auto) 4.3 % (1.0-12.0); Platelet Count 218 K/mcL (140-440); RBC 5.66 M/mcL (4.00-5.20); Red Cell Distribution Width 16.4 % (11.5-14.5); WBC 8.3 K/mcL (4.5-11.0)
[2019-03-30 14:56] LABS: ALT/SGPT 47 U/l (0-40); AST/SGOT 60 U/l (0-37); Albumin 4.2 gm/dL (3.2-5.2); Albumin/Globulin Ratio 1.1 (1.0-2.3); Alkaline Phosphatase 83 U/L (39-117); Bilirubin,Total 0.6 mg/dL (0.0-1.0); Blood Urea Nitrogen 15 mg/dl (8-23); Carbon Dioxide 21 mmol/L (22-30); Chloride 99 mmol/L (96-108); Globulin 3.9 gm/dL (2.2-3.7); Glomerular Filtration Rate 62; Glucose 294 mg/dL (70-105); INR 1.6 (0.9-1.1); Prothrombin Time 19.1 sec (11.9-14.5)
[~2019-04-05 05:04] MED LIST: 0.9 % SODIUM CHLORIDE 250 ML IV SCH; IPRATROPIUM/ALBUTEROL 3 ML AMPUL.NEB NEB PRN; SCOPOLAMINE 1 PATCH PATCH TOPICAL PRN
[2019-04-05 05:44] LABS: POC INR 1.1 (0.9-1.2); POC Pro Time 12.6 sec (11.9-14.5)
[2019-04-05] MEDS ORDERED: PIPERACILLIN SODIUM/TAZOBACTAM 3.375 GM in DEXTROSE 5% IN WATER 50 ML IV SCH ×2 (06:00→12:00)
[2019-04-05] MEDS ORDERED: PROPOFOL 200 MG/20 ML VIAL IV ONE (07:45)
[2019-04-05] MEDS ORDERED: GLYCOPYRROLATE 0.2 MG/ML VIAL IV ONE (07:45)
[2019-04-05] MEDS ORDERED: MIDAZOLAM 2 MG/2 ML VIAL IV ONE (07:45)
[2019-04-05] MEDS ORDERED: DEXAMETHASONE 10 MG/ML VIAL IV ONE (07:45)
[2019-04-05] MEDS ORDERED: ROPIVACAINE HCL/PF 20 ML VIAL IJ ONE (07:45)
[2019-04-05] MEDS ORDERED: ePHEDrine 50 MG/ML AMPUL IV ONE (07:45)
[2019-04-05] MEDS ORDERED: HYDROmorphone 2 MG/ML VIAL IV ONE (07:45)
[2019-04-05] MEDS ORDERED: BUPRENORPHINE HCL 0.3 MG/ML ML IM ONE (07:45)
[2019-04-05] MEDS ORDERED: ONDANSETRON 4 MG/2 ML VIAL IV ONE (07:45)
[2019-04-05] MEDS ORDERED: SUGAMMADEX SODIUM 200 MG/2 ML VIAL IV ONE (07:45)
[2019-04-05] MEDS ORDERED: fentaNYL 250 MCG/5 ML VIAL IV ONE (07:45)
[2019-04-05] MEDS ORDERED: ROCURONIUM 10 MG/ML ML IV ONE (07:45)
[2019-04-05] MEDS ORDERED: LIDOCAINE HCL/PF 100 MG/5 ML SYRINGE IV ONE (07:45)
[2019-04-05] MEDS ORDERED: IPRATROPIUM/ALBUTEROL 3 ML AMPUL.NEB NEB PRN (10:17)
[2019-04-05] MEDS ORDERED: MEPERIDINE 25 MG/ML SYRINGE IV PRN (10:17)
[2019-04-05] MEDS ORDERED: diphenhydrAMINE 50 MG/ML VIAL IV PRN (10:17)
[2019-04-05] MEDS ORDERED: NALOXONE HCL 0.4 MG/ML VIAL IV PRN (10:17)
[2019-04-05] MEDS ORDERED: fentaNYL 100 MCG/2 ML VIAL IV PRN (10:17)
[2019-04-05] MEDS ORDERED: HYDROmorphone 2 MG/ML VIAL IV PRN ×2 (10:17→12:08)
[2019-04-05] MEDS ORDERED: BENZOCAINE/MENTHOL 1 LOZENGE PO PRN (10:17)
[2019-04-05] MEDS ORDERED: ACETAMINOPHEN 1,000 MG/100 ML BOTTLE IV ONE (10:17)
[2019-04-05] MEDS ORDERED: LACTATED RINGERS 250 ML IV PRN (10:17)
[2019-04-05] MEDS ORDERED: PROMETHAZINE 25 MG/ML VIAL IV PRN (10:17)
[2019-04-05] MEDS ORDERED: FLUMAZENIL 0.1 MG/ML ML IV PRN (10:17)
[2019-04-05] MEDS ORDERED: ONDANSETRON 4 MG/2 ML VIAL IV PRN ×3 (10:17→14:23)
[2019-04-05] MEDS ORDERED: LACTATED RINGERS 1,000 ML IV SCH (10:30)
--- NOTE | 2019-04-05 10:55 | Brief Operative Note ---
Date of procedure: 04/05/19 Pre-op diagnosis: colostomy status ;diverticulitis Post-op diagnosis: other (colostomy status;diverticulitis) Procedure: segmental sigmoid colectomy Grafts/Implants: No (evert drain x 2 ) Anesthesia: GETA Findings: continued severe inflammation of rectosigmoid extending down to rectum; residual rectum still severely inflamed and very stenotic; not amenable to reanastomosis Complications: none Surgeon: Angelia Blount Estimated blood loss (cc): 400 Specimens Removed/Pathology: other (sigmoid colon) Condition: stable Disposition: PACU
[2019-04-05] MEDS ORDERED: METOCLOPRAMIDE 10 MG/2 ML VIAL IV SCH (12:08)
[2019-04-05] MEDS ORDERED: 0.9 % SODIUM CHLORIDE 1,000 ML IV SCH ×2 (12:08)
[2019-04-05] MEDS ORDERED: LORazepam 2 MG/ML VIAL IV PRN ×2 (12:08→14:23)
--- NOTE | 2019-04-05 13:51 | XRay Report ---
CLINICAL INFORMATION: pacu resp depression COMPARISON: 03/30/2019 FINDINGS: Borderline cardiomegaly is accentuated by portable technique rotation and lordotic positioning. Mediastinum and pulmonary vessels are normal. OG tube in satisfactory position with sidehole overlying the gastric antrum. There is minor bibasilar atelectasis. No effusion IMPRESSION: Borderline cardiomegaly and minor bibasilar atelectasis Interpreted and Authenticated by: Ronald Kaur 04/05/19
[2019-04-05] MEDS ORDERED: 0.9 % SODIUM CHLORIDE 10 ML SYRINGE IV SCH ×2 (14:00)
[2019-04-05] MEDS ORDERED: ACETAMINOPHEN 1,000 MG in PREMIX 1 BAG IV SCH ×2 (14:00→20:00)
[2019-04-05] MEDS ORDERED: ACETAMINOPHEN 1,000 MG/100 ML BOTTLE IV SCH (14:30)
[2019-04-05] MEDS: 0.9 % SODIUM CHLORIDE 1,000 ML IV SCH ×2 (14:51→23:29)
[2019-04-05 15:26] LABS: proBNP 257.3 pg/ml (0-450)
--- NOTE | 2019-04-05 15:54 | Operative Note ---
DATE OF OPERATION: 04/05/2019 PREOPERATIVE DIAGNOSES: Colostomy status and diverticulitis. POSTOPERATIVE DIAGNOSES: Colostomy status, diverticulitis, severe residual pelvic inflammation. PROCEDURE: Segmental sigmoid colectomy. SURGEON: Angelia Blount M.D. FINDINGS: Continued severe inflammation of the rectosigmoid colon extending down to the rectum. The residual rectum was severely inflamed and very stenotic and is not amenable to reanastomosis at this time. ESTIMATED BLOOD LOSS: 400 mL. SPECIMEN: Sigmoid colon. DESCRIPTION OF PROCEDURE: Under general anesthesia, the patient's abdomen was prepped and draped in a sterile field. The stoma was closed with running locking 2-0 silk. The abdominal wall was prepped and covered with an Ioban drape. Timeout procedure was carried out as per protocol. A midline incision was made and extended through the fascia into the peritoneal cavity. There were extensive adhesions of the omentum and the colon to the anterior abdominal wall. These were taken down using sharp and blunt dissection. Dissection was continued on the left side of the abdomen until the bowel leading up to the stoma was dissected. It appeared to be viable and was unremarkable except there was a small parastomal hernia. Next, the pelvis was addressed. Dissection was carried out using sharp and blunt dissection. There was intense inflammatory response of the multiple small bowel loops down into the deep pelvis and attached to the bladder and the residual rectosigmoid. Using sharp and blunt dissection, these adhesions were taken down until the rectosigmoid stump could be identified. It was very fibrotic or shrunken. It was densely adherent in the deep pelvis. It was removed primarily with blunt dissection. No sharp dissection was carried out in the pelvis. I stayed intraperitoneal the whole time to make sure there was no ureteral injury. The dissection was continued down in the hollow of the sacrum to the distal rectum and even this was extremely fibrotic and thickened. Once the colon was freed posteriorly, I was able to do sharp dissection anteriorly and separate it from the bladder. There were two openings that were full-thickness from the sigmoid colon immediately above the peritoneal reflection. These appeared to be the areas of perforation. One of the areas was adherent to the top of the vagina. I could not identify an actual opening into the vagina, however. The bowel was circumferentially dissected and was transected below the peritoneal reflection using electrocautery. Specimen passed off. The residual rectal stump was extremely foreshortened, very fibrotic and stenotic. Significant inflammation noted in the wall. I tried to finger dilate the rectal stump, but the lumen was very small and though the mucosa clinically appeared to be normal, the wall of the bowel was fibrotic and would not dilate significantly. Copious irrigation was carried out. There was a small amount of purulence encountered. With these findings noted, it was felt that the residual rectum was not adequate enough for reanastomosis. Continued dissection was carried down anteriorly to get to the base anteriorly to make sure there was no other purulence noted. Once this was done, copious irrigation was carried out once more. I was then assured that I could not safely do reanastomosis because of infection and also because of the high potential that this extremely foreshortened, stenotic, fibrotic tube would not be adequate for a functional rectum. At this time, I broke scrub and the backtable was changed and sponge, needle, instrument and blade counts were done x2. I then regowned. The small parastomal hernia around the colostomy was closed with two sutures of interrupted #1 Prolene. This was snug but not constricting. The small bowel was inspected and the upper abdomen was irrigated. Nasogastric tube was positioned in the stomach. Two Barak drains were placed in the deep pelvis and brought out through separate stab incisions in the right lower quadrant. Repeat sponge, needle, instrument and blade counts were carried out, and the fascia was closed using running #1 Prolene. Subcutaneous tissue was closed with 2-0 Monocryl. Skin was closed with darshan. A Tegaderm dressing was placed. The drains were secured with 2-0 silk. The stoma was opened and a stoma appliance was placed. The patient was slow to awaken, but she was successfully awakened and extubated and transferred to the postanesthetic care unit in stable, satisfactory condition. LCS:barbara Job ID: [id number] Doc ID: [id number] Angelia Blount M.D.
[2019-04-05] MEDS: PIPERACILLIN SODIUM/TAZOBACTAM 3.375 GM in DEXTROSE 5% IN WATER 50 ML IV SCH ×2 (18:13→18:14)
[2019-04-05] MEDS: METOCLOPRAMIDE 10 MG/2 ML VIAL IV SCH (18:18)
[2019-04-05] MEDS: INSULIN LISPRO 1 UNIT/0.01 ML UNIT SQ SCH (19:31)
[2019-04-05] MEDS: ACETAMINOPHEN 1,000 MG/100 ML BOTTLE IV SCH (20:10)
[2019-04-05] MEDS ORDERED: ENOXAPARIN 30 MG/0.3 ML SYRINGE SQ SCH (21:00)
[2019-04-05] MEDS: 0.9 % SODIUM CHLORIDE 10 ML SYRINGE IV SCH ×2 (21:13)
[2019-04-05] MEDS: ENOXAPARIN 30 MG/0.3 ML SYRINGE SQ SCH (21:30)
[2019-04-06] MEDS: PIPERACILLIN SODIUM/TAZOBACTAM 3.375 GM in DEXTROSE 5% IN WATER 50 ML IV SCH ×5 (00:07→23:57)
[2019-04-06] MEDS: INSULIN LISPRO 1 UNIT/0.01 ML UNIT SQ SCH ×4 (00:11→18:08)
[2019-04-06] MEDS: METOCLOPRAMIDE 10 MG/2 ML VIAL IV SCH ×4 (00:12→18:03)
[2019-04-06] MEDS: ACETAMINOPHEN 1,000 MG/100 ML BOTTLE IV SCH ×3 (01:52→14:14)
[2019-04-06 05:26] LABS: Basophils # (Auto) 0 K/mcL (0.0-0.3); Basophils % (Auto) 0 % (0.0-2.0); Eosinophils # (Auto) 0 K/mcL (0.0-0.7); Eosinophils % (Auto) 0 % (0.0-7.0); Granulocytes % (Auto) 92.8 % (38.0-78.0); Hematocrit 35.6 % (36.0-48.0); Hemoglobin 11.4 g/dL (12.0-15.0); Lymphocytes # (Auto) 0.7 K/mcL (1.5-4.8); Lymphocytes % (Auto) 4.6 % (15.5-49.0); Mean Cell Volume 85.1 fL (80.0-100.0); Mean Corpuscular HGB Conc 32.1 g/dL (31.0-36.0); Mean Platelet Volume 9.8 fL (7.4-10.4); Monocytes # (Auto) 0.4 K/mcL (0.1-0.9); Monocytes % (Auto) 2.6 % (1.0-12.0); Platelet Count 174 K/mcL (140-440); RBC 4.18 M/mcL (4.00-5.20); Red Cell Distribution Width 16.4 % (11.5-14.5); WBC 15.8 K/mcL (4.5-11.0)
[2019-04-06] MEDS: 0.9 % SODIUM CHLORIDE 10 ML SYRINGE IV SCH ×6 (05:56→21:14)
[2019-04-06 06:00] LABS: ALT/SGPT 45 U/l (0-40); AST/SGOT 44 U/l (0-37); Albumin 3.2 gm/dL (3.2-5.2); Albumin/Globulin Ratio 1.2 (1.0-2.3); Alkaline Phosphatase 50 U/L (39-117); Bilirubin,Direct < 0.2 mg/dL (0.0-0.3); Bilirubin,Total 0.6 mg/dL (0.0-1.0); Blood Urea Nitrogen 21 mg/dl (8-23); Calcium 8.8 mg/dl (8.6-10.4); Carbon Dioxide 18 mmol/L (22-30); Chloride 101 mmol/L (96-108); Globulin 2.6 gm/dL (2.2-3.7); Glomerular Filtration Rate 44; Glucose 320 mg/dL (70-105); Lactate Dehydrogenase 152 U/L (94-250); Phosphorous 4.9 mg/dL (2.7-4.5); Triglycerides 126 mg/dl (<150); Uric Acid 7.1 mg/dL (2.5-8.0)
[2019-04-06] MEDS: 0.9 % SODIUM CHLORIDE 1,000 ML IV SCH ×3 (08:04→21:59)
[2019-04-06] MEDS: ENOXAPARIN 30 MG/0.3 ML SYRINGE SQ SCH ×2 (09:29→20:15)
[2019-04-06] MEDS: HYDROmorphone 2 MG/ML VIAL IV PRN ×2 (12:35→23:56)
--- NOTE | 2019-04-06 17:43 | General Surgery Progress Note ---
Subjective Patient reports: feels better, pain is less, no flatus, no bowel movement, afebrile Narrative: Note initiated : 04/06/19 at 5:40 pm Service Date, if different from initiated Date: [] Patient: Brit Alonzo 78 y/o F admitted on 04/05/19 for Segmental Colectomy with Colostomy Takedown. Chief Complaint: [Patient is stable. She is more alert and aware. Discussed the intraoperative findings with her and the reason for not doing pre- anastomosis. She is informed that the colostomy is probably permanent but will consider reevaluation in a year White blood count 515.8, hemoglobin 11.4, BUN 21, creatinine 1.0, glucose 260-320] Objective Temp Pulse Resp BP Pulse Ox 97.7 F 50 L 14 124/59 94 04/06/19 16:01 04/06/19 17:01 04/06/19 17:20 04/06/19 17:01 04/06/19 17:01 - Additional Data Intake & Output - Last 24 hours: Intake & Output 04/04/19 04/05/19 04/06/19 04/07/19 05:59 05:59 05:59 05:59 Intake Total 4875 1540 Output Total 2250 1445 Balance 2625 95 Weight 195 lb 202 lb 12.8 oz 202 lb 12.8 oz - General physical appearance well developed, well nourished, no distress, other (mild incisional discomfort) - Eyes PERRL, normal ocular movement - ENT normal pinna, normal nares, normal mucosa, no hearing loss, no congestion - Neck no masses, no bruits, trachea midline, no lymphadenopathy, no venous distension - Respiratory normal expansion, normal respiratory effort, clear to auscultation - Cardiovascular Cardiovascular exam: Present: normal rate and rhythm, irregular rhythm, +S1, +S2. Absent: JVD, tachycardia - Abdomen tender ( mild incisional tenderness; few active bowel sounds), bowel sounds (present), surgical scars (none), masses (none) - Integumentary no rash, no growths, no abnormal pigmentation - Neurologic normal coordination, normal sensation - Psychiatric oriented to time, oriented to person, oriented to place, speech is normal, memory intact - Labs 04/06/19 03:38 04/06/19 03:38 Diabetes panel 04/06/19 Range/Units 03:38 Sodium 138 (133-145) mmol/L Potassium 4.9 (3.3-5.1) mmol/L Chloride 101 (96-108) mmol/L Carbon Dioxide 18 L (22-30) mmol/L BUN 21 (8-23) mg/dl Creatinine 1.2 H (0.6-1.1) mg/dl Glucose 320 H (70-105) mg/dL Calcium 8.8 (8.6-10.4) mg/dl AST 44 H (0-37) U/l ALT 45 H (0-40) U/l Alkaline Phosphatase 50 (39-117) U/L Total Protein 5.8 L (5.9-8.4) gm/dL Albumin 3.2 (3.2-5.2) gm/dL Triglycerides 126 (<150) mg/dl Calcium panel 04/06/19 Range/Units 03:38 Calcium 8.8 (8.6-10.4) mg/dl Phosphorus 4.9 H (2.7-4.5) mg/dL Albumin 3.2 (3.2-5.2) gm/dL Pituitary panel 04/06/19 Range/Units 03:38 Sodium 138 (133-145) mmol/L Potassium 4.9 (3.3-5.1) mmol/L Chloride 101 (96-108) mmol/L Carbon Dioxide 18 L (22-30) mmol/L BUN 21 (8-23) mg/dl Creatinine 1.2 H (0.6-1.1) mg/dl Glucose 320 H (70-105) mg/dL Calcium 8.8 (8.6-10.4) mg/dl Adrenal panel 04/06/19 Range/Units 03:38 Sodium 138 (133-145) mmol/L Potassium 4.9 (3.3-5.1) mmol/L Chloride 101 (96-108) mmol/L Carbon Dioxide 18 L (22-30) mmol/L BUN 21 (8-23) mg/dl Creatinine 1.2 H (0.6-1.1) mg/dl Glucose 320 H (70-105) mg/dL Calcium 8.8 (8.6-10.4) mg/dl Total Bilirubin 0.6 (0.0-1.0) mg/dL AST 44 H (0-37) U/l ALT 45 H (0-40) U/l Alkaline Phosphatase 50 (39-117) U/L Total Protein 5.8 L (5.9-8.4) gm/dL Albumin 3.2 (3.2-5.2) gm/dL Assessment and Plan (1) Acute diverticulitis of intestine Status: Resolved Assessment and plan: Continue IV antibiotics Current Visit: No (2) Fistula, colovaginal Status: Resolved Current Visit: No (3) Type 2 diabetes mellitus, without long-term current use of insulin Status: Chronic Assessment and plan: Cover with medium scale insulin scale Current Visit: No (4) Essential hypertension Problem details: Chronically abnormal ECG; cardiolite normal in 2006. Status: Chronic Current Visit: No (5) Chronic obstructive pulmonary disease Problem details: Continued tobacco use and probable chronic bronchitiis. Hx of positive PPD at age 18; last chest x-ray 08/2012. 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 Status: Chronic Current Visit: No - Time Spent With Patient Total time spent is greater than 50% in coordination of care (as documented) at patient's floor/unit and/or counseling patient:
[2019-04-06] MEDS: LIDOCAINE PATCH TOPICAL SCH (20:15)
[2019-04-07] MEDS: INSULIN LISPRO 1 UNIT/0.01 ML UNIT SQ SCH ×4 (00:05→18:02)
[2019-04-07] MEDS: METOCLOPRAMIDE 10 MG/2 ML VIAL IV SCH ×4 (00:07→17:52)
[2019-04-07] MEDS: HYDROmorphone 2 MG/ML VIAL IV PRN ×3 (05:09→16:29)
[2019-04-07] MEDS: PIPERACILLIN SODIUM/TAZOBACTAM 3.375 GM in DEXTROSE 5% IN WATER 50 ML IV SCH ×3 (05:09→17:54)
[2019-04-07 05:49] LABS: Basophils # (Auto) 0 K/mcL (0.0-0.3); Basophils % (Auto) 0.2 % (0.0-2.0); Eosinophils # (Auto) 0 K/mcL (0.0-0.7); Eosinophils % (Auto) 0.1 % (0.0-7.0); Granulocytes % (Auto) 86.1 % (38.0-78.0); Hematocrit 30.5 % (36.0-48.0); Hemoglobin 9.9 g/dL (12.0-15.0); Lymphocytes # (Auto) 1.7 K/mcL (1.5-4.8); Lymphocytes % (Auto) 10.8 % (15.5-49.0); Mean Cell Volume 83.5 fL (80.0-100.0); Mean Corpuscular HGB Conc 32.5 g/dL (31.0-36.0); Mean Platelet Volume 9.1 fL (7.4-10.4); Monocytes # (Auto) 0.4 K/mcL (0.1-0.9); Monocytes % (Auto) 2.8 % (1.0-12.0); Platelet Count 148 K/mcL (140-440); RBC 3.65 M/mcL (4.00-5.20); Red Cell Distribution Width 16.9 % (11.5-14.5); WBC 15.6 K/mcL (4.5-11.0)
[2019-04-07 06:08] LABS: ALT/SGPT 26 U/l (0-40); AST/SGOT 18 U/l (0-37); Albumin/Globulin Ratio 1.3 (1.0-2.3); Alkaline Phosphatase 47 U/L (39-117); Bilirubin,Direct < 0.2 mg/dL (0.0-0.3); Bilirubin,Total 0.5 mg/dL (0.0-1.0); Blood Urea Nitrogen 16 mg/dl (8-23); Calcium 8.5 mg/dl (8.6-10.4); Carbon Dioxide 23 mmol/L (22-30); Chloride 108 mmol/L (96-108); Globulin 2.4 gm/dL (2.2-3.7); Glomerular Filtration Rate 71; Glucose 163 mg/dL (70-105); Lactate Dehydrogenase 149 U/L (94-250); Phosphorous 2.6 mg/dL (2.7-4.5); Triglycerides 155 mg/dl (<150); Uric Acid 4.6 mg/dL (2.5-8.0)
[2019-04-07] MEDS: 0.9 % SODIUM CHLORIDE 10 ML SYRINGE IV SCH ×6 (06:37→20:44)
[2019-04-07] MEDS: ENOXAPARIN 30 MG/0.3 ML SYRINGE SQ SCH ×2 (11:11→20:44)
[2019-04-07] MEDS: 0.9 % SODIUM CHLORIDE 1,000 ML IV SCH ×2 (11:12→20:44)
--- NOTE | 2019-04-07 13:34 | Surgical Pathology Report ---
HISTOLOGY SPECIMEN MICROSCOPIC DIAGNOSIS COLON, SIGMOID, PARTIAL COLECTOMY: -- COLONIC MUCOSA WITH DIVERTICULOSIS, SEROSAL ADHESIONS AND FOCI OF FAT NECROSIS. -- FIVE BENIGN LYMPH NODES. -- VIABLE MARGINS OF RESECTION. -- NO MALIGNANCY IDENTIFIED. (RLF:jarrell) PROCEDURAL IMPRESSION Diverticulitis. GROSS DESCRIPTION Received in formalin labeled sigmoid colon, is a segment of bowel received with one margin open and a stapled margin. The open margin is inked black. The segment of bowel is 10.7 cm in length and is 2.8 cm in diameter. The wall is up to 0.5 cm thick. The serosa is bae and has areas of possible adhesions. The mucosa is bae and plicated. There are multiple diverticula identified. There are four candidate lymph nodes identified from 0.2 to 0.3 cm. There is a firmer area of bae fat identified that measures 1.5 cm. Cut surfaces are firm and bae. Track Superintendent sections are submitted in six cassettes: A1 - margins; A2 - areas of possible diverticula; A3 - random mucosal sections; A4 - areas of possible adhesion; A5 - candidate lymph nodes; A6 - publications sales representative sections of firmer bae fatty area. (SCB:jarrell) Electronically Signed by: Twila Thomas M.D.
[2019-04-07] MEDS: LIDOCAINE PATCH TOPICAL SCH (17:53)
--- NOTE | 2019-04-07 19:32 | General Surgery Progress Note ---
Subjective Narrative: Note initiated : 04/07/19 at 7:32 pm Service Date, if different from initiated Date: [] Patient: Brit Alonzo 78 y/o F admitted on 04/05/19 for Segmental Colectomy with Colostomy Takedown. Chief Complaint: [] Objective Temp Pulse Resp BP Pulse Ox 98.7 F 95 H 14 133/59 93 04/07/19 19:00 04/07/19 19:01 04/07/19 16:00 04/07/19 19:01 04/07/19 19:01 - Additional Data Intake & Output - Last 24 hours: Intake & Output 04/05/19 04/06/19 04/07/19 04/08/19 05:59 05:59 05:59 05:59 Intake Total 4875 2640 1300 Output Total 2250 2224 1105 Balance 2625 416 195 Weight 195 lb 202 lb 12.8 oz 206 lb 1.6 oz 207 lb 9 oz - Labs 04/07/19 03:45 04/07/19 03:45 Diabetes panel 04/07/19 Range/Units 03:45 Sodium 142 (133-145) mmol/L Potassium 4.1 (3.3-5.1) mmol/L Chloride 108 (96-108) mmol/L Carbon Dioxide 23 (22-30) mmol/L BUN 16 (8-23) mg/dl Creatinine 0.8 (0.6-1.1) mg/dl Glucose 163 H (70-105) mg/dL Calcium 8.5 L (8.6-10.4) mg/dl AST 18 (0-37) U/l ALT 26 (0-40) U/l Alkaline Phosphatase 47 (39-117) U/L Total Protein 5.4 L (5.9-8.4) gm/dL Albumin 3.0 L (3.2-5.2) gm/dL Triglycerides 155 H (<150) mg/dl Calcium panel 04/07/19 Range/Units 03:45 Calcium 8.5 L (8.6-10.4) mg/dl Phosphorus 2.6 L (2.7-4.5) mg/dL Albumin 3.0 L (3.2-5.2) gm/dL Pituitary panel 04/07/19 Range/Units 03:45 Sodium 142 (133-145) mmol/L Potassium 4.1 (3.3-5.1) mmol/L Chloride 108 (96-108) mmol/L Carbon Dioxide 23 (22-30) mmol/L BUN 16 (8-23) mg/dl Creatinine 0.8 (0.6-1.1) mg/dl Glucose 163 H (70-105) mg/dL Calcium 8.5 L (8.6-10.4) mg/dl Adrenal panel 04/07/19 Range/Units 03:45 Sodium 142 (133-145) mmol/L Potassium 4.1 (3.3-5.1) mmol/L Chloride 108 (96-108) mmol/L Carbon Dioxide 23 (22-30) mmol/L BUN 16 (8-23) mg/dl Creatinine 0.8 (0.6-1.1) mg/dl Glucose 163 H (70-105) mg/dL Calcium 8.5 L (8.6-10.4) mg/dl Total Bilirubin 0.5 (0.0-1.0) mg/dL AST 18 (0-37) U/l ALT 26 (0-40) U/l Alkaline Phosphatase 47 (39-117) U/L Total Protein 5.4 L (5.9-8.4) gm/dL Albumin 3.0 L (3.2-5.2) gm/dL Assessment and Plan (1) Acute diverticulitis of intestine Status: Resolved Assessment and plan: Continue IV antibiotics Current Visit: No (2) Fistula, colovaginal Status: Resolved Current Visit: No (3) Type 2 diabetes mellitus, without long-term current use of insulin Status: Chronic Assessment and plan: Cover with medium scale insulin scale Current Visit: No (4) Essential hypertension Problem details: Chronically abnormal ECG; cardiolite normal in 2006. Status: Chronic Current Visit: No (5) Chronic obstructive pulmonary disease Problem details: Continued tobacco use and probable chronic bronchitiis. Hx of positive PPD at age 18; last chest x-ray 08/2012. 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 Status: Chronic Current Visit: No - Time Spent With Patient Total time spent is greater than 50% in coordination of care (as documented) at patient's floor/unit and/or counseling patient:
[2019-04-07] MEDS ORDERED: ACETAMINOPHEN 1,000 MG/100 ML BOTTLE IV PRN (22:30)
[2019-04-07] MEDS ORDERED: ACETAMINOPHEN 1,000 MG/100 ML BOTTLE IV ONE (22:35)
[2019-04-08] MEDS: PIPERACILLIN SODIUM/TAZOBACTAM 3.375 GM in DEXTROSE 5% IN WATER 50 ML IV SCH ×5 (00:20→23:29)
[2019-04-08] MEDS: INSULIN LISPRO 1 UNIT/0.01 ML UNIT SQ SCH ×5 (00:20→23:38)
[2019-04-08] MEDS: METOCLOPRAMIDE 10 MG/2 ML VIAL IV SCH ×5 (00:20→23:29)
[2019-04-08] MEDS: 0.9 % SODIUM CHLORIDE 1,000 ML IV SCH ×5 (01:04→20:22)
[2019-04-08] MEDS: HYDROmorphone 2 MG/ML VIAL IV PRN ×2 (02:59→23:29)
[2019-04-08] MEDS: 0.9 % SODIUM CHLORIDE 10 ML SYRINGE IV SCH ×6 (04:40→20:22)
[2019-04-08 05:42] LABS: Basophils # (Auto) 0 K/mcL (0.0-0.3); Basophils % (Auto) 0.3 % (0.0-2.0); Eosinophils # (Auto) 0.1 K/mcL (0.0-0.7); Eosinophils % (Auto) 0.8 % (0.0-7.0); Granulocytes % (Auto) 83.2 % (38.0-78.0); Hematocrit 31.3 % (36.0-48.0); Hemoglobin 10.2 g/dL (12.0-15.0); Lymphocytes # (Auto) 1.5 K/mcL (1.5-4.8); Lymphocytes % (Auto) 12.8 % (15.5-49.0); Mean Cell Volume 83.9 fL (80.0-100.0); Mean Corpuscular HGB Conc 32.5 g/dL (31.0-36.0); Mean Platelet Volume 10.5 fL (7.4-10.4); Monocytes # (Auto) 0.3 K/mcL (0.1-0.9); Monocytes % (Auto) 2.9 % (1.0-12.0); Platelet Count 155 K/mcL (140-440); RBC 3.73 M/mcL (4.00-5.20); Red Cell Distribution Width 16.4 % (11.5-14.5); WBC 12.1 K/mcL (4.5-11.0)
[2019-04-08 06:04] LABS: ALT/SGPT 18 U/l (0-40); AST/SGOT 14 U/l (0-37); Albumin 2.7 gm/dL (3.2-5.2); Alkaline Phosphatase 71 U/L (39-117); Bilirubin,Direct < 0.2 mg/dL (0.0-0.3); Bilirubin,Total 0.8 mg/dL (0.0-1.0); Blood Urea Nitrogen 8 mg/dl (8-23); Calcium 8.3 mg/dl (8.6-10.4); Carbon Dioxide 24 mmol/L (22-30); Chloride 105 mmol/L (96-108); Globulin 2.8 gm/dL (2.2-3.7); Glomerular Filtration Rate 84; Glucose 150 mg/dL (70-105); Lactate Dehydrogenase 295 U/L (94-250); Triglycerides 121 mg/dl (<150); Uric Acid 3.3 mg/dL (2.5-8.0)
--- NOTE | 2019-04-08 11:18 | General Surgery Progress Note ---
Subjective Patient reports: feels better, pain is less (assuming inpatient and will discharge him tomorrow.I put patient will ConsultAnn"uge), no flatus, no bowel movement, afebrile Narrative: Note initiated : 04/08/19 at 11:16 am Service Date, if different from initiated Date: [] Patient: Brit Alonzo 78 y/o F admitted on 04/05/19 for Segmental Colectomy with Colostomy Takedown. Chief Complaint: [Patient feels better. She states that she does not remember talking to me about her surgery though I have talked to her about the surgery for the last 3 days. Explained to patient again the fact that her stoma is p ermanent and it cannot be anastomosed. Discussed with her the major residual infection in her pelvis and this stenosis of her residual rectal stump. Patient is clinically stable and is transferred to [facility] status] Objective Temp Pulse Resp BP Pulse Ox 99.1 F H 95 H 16 158/78 95 04/08/19 09:00 04/08/19 10:27 04/08/19 04:01 04/08/19 10:01 04/08/19 10:27 - Additional Data Intake & Output - Last 24 hours: Intake & Output 04/06/19 04/07/19 04/08/19 04/09/19 05:59 05:59 05:59 05:59 Intake Total 4875 2640 3500 50 Output Total 2250 2224 2960 615 Balance 2625 416 540 -565 Weight 202 lb 12.8 oz 206 lb 1.6 oz 207 lb 9 oz - General physical appearance well developed, well nourished, moderate distress, moderate pain - Eyes PERRL, normal ocular movement - ENT normal pinna, normal nares, normal mucosa, no hearing loss, no congestion - Neck no masses, no bruits, trachea midline, no lymphadenopathy, no venous distension - Respiratory normal expansion, normal respiratory effort, clear to auscultation - Cardiovascular Cardiovascular exam: Present: normal rate and rhythm, RRR, +S1, +S2. Absent: bradycardia, tachycardia - Abdomen tender, bowel sounds (present), surgical scars (none), masses (none) - Integumentary no rash, no growths, no abnormal pigmentation - Neurologic normal coordination, normal sensation - Musculoskeletal normal gait, normal posture - Psychiatric oriented to time, oriented to person, oriented to place, speech is normal, memory intact - Labs 04/08/19 04:10 04/08/19 04:10 Diabetes panel 04/08/19 Range/Units 04:10 Sodium 139 (133-145) mmol/L Potassium 3.9 (3.3-5.1) mmol/L Chloride 105 (96-108) mmol/L Carbon Dioxide 24 (22-30) mmol/L BUN 8 (8-23) mg/dl Creatinine 0.7 (0.6-1.1) mg/dl Glucose 150 H (70-105) mg/dL Calcium 8.3 L (8.6-10.4) mg/dl AST 14 (0-37) U/l ALT 18 (0-40) U/l Alkaline Phosphatase 71 (39-117) U/L Total Protein 5.5 L (5.9-8.4) gm/dL Albumin 2.7 L (3.2-5.2) gm/dL Triglycerides 121 (<150) mg/dl Calcium panel 04/08/19 Range/Units 04:10 Calcium 8.3 L (8.6-10.4) mg/dl Phosphorus 2.0 L (2.7-4.5) mg/dL Albumin 2.7 L (3.2-5.2) gm/dL Pituitary panel 04/08/19 Range/Units 04:10 Sodium 139 (133-145) mmol/L Potassium 3.9 (3.3-5.1) mmol/L Chloride 105 (96-108) mmol/L Carbon Dioxide 24 (22-30) mmol/L BUN 8 (8-23) mg/dl Creatinine 0.7 (0.6-1.1) mg/dl Glucose 150 H (70-105) mg/dL Calcium 8.3 L (8.6-10.4) mg/dl Adrenal panel 04/08/19 Range/Units 04:10 Sodium 139 (133-145) mmol/L Potassium 3.9 (3.3-5.1) mmol/L Chloride 105 (96-108) mmol/L Carbon Dioxide 24 (22-30) mmol/L BUN 8 (8-23) mg/dl Creatinine 0.7 (0.6-1.1) mg/dl Glucose 150 H (70-105) mg/dL Calcium 8.3 L (8.6-10.4) mg/dl Total Bilirubin 0.8 (0.0-1.0) mg/dL AST 14 (0-37) U/l ALT 18 (0-40) U/l Alkaline Phosphatase 71 (39-117) U/L Total Protein 5.5 L (5.9-8.4) gm/dL Albumin 2.7 L (3.2-5.2) gm/dL Assessment and Plan (1) Acute diverticulitis of intestine Status: Resolved Assessment and plan: Continue IV antibiotics Discontinue nasogastric tube Discontinue Hernandez catheter Zofran 4 mg IV or by mouth every 4 hours when necessary nausea Transfer to [facility] status Current Visit: No (2) Fistula, colovaginal Status: Resolved Current Visit: No (3) Type 2 diabetes mellitus, without long-term current use of insulin Status: Chronic Assessment and plan: Cover with medium scale insulin scale Current Visit: No (4) Essential hypertension Problem details: Chronically abnormal ECG; cardiolite normal in 2006. Status: Chronic Current Visit: No (5) Chronic obstructive pulmonary disease Problem details: Continued tobacco use and probable chronic bronchitiis. Hx of positive PPD at age 18; last chest x-ray 08/2012. 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 Status: Chronic Current Visit: No - Time Spent With Patient Total time spent is greater than 50% in coordination of care (as documented) at patient's floor/unit and/or counseling patient:
[2019-04-08] MEDS ORDERED: LORazepam 2 MG/ML VIAL IV PRN (11:25)
[2019-04-08] MEDS ORDERED: BUTALB/ACETAMINOPHEN/CAFFEINE 1 TABLET PO PRN (11:25)
[2019-04-08] MEDS ORDERED: ONDANSETRON 4 MG/2 ML VIAL IV PRN (11:25)
[2019-04-08] MEDS ORDERED: MAGNESIUM SULFATE 32.48 MEQ in DEXTROSE 5% IN WATER 50 ML IV ONE (11:25)
[2019-04-08] MEDS ORDERED: MAGNESIUM SULFATE 4 GM/100 ML BAG IV ONE (11:30)
[2019-04-08] MEDS: ACETAMINOPHEN 1,000 MG/100 ML BOTTLE IV PRN ×2 (11:44→19:11)
[2019-04-08] MEDS: ENOXAPARIN 30 MG/0.3 ML SYRINGE SQ SCH ×2 (12:03→20:25)
[2019-04-08] MEDS: LIDOCAINE PATCH TOPICAL SCH (16:43)
[2019-04-08] MEDS ORDERED: oxyCODONE HCL 5 MG TABLET PO ONE (23:28)
[2019-04-08] MEDS: oxyCODONE HCL 5 MG TABLET PO PRN (23:30)
[2019-04-09] MEDS: ACETAMINOPHEN 1,000 MG/100 ML BOTTLE IV PRN ×2 (01:26→21:42)
[2019-04-09] MEDS: 0.9 % SODIUM CHLORIDE 1,000 ML IV SCH ×3 (02:50→19:11)
[2019-04-09] MEDS: oxyCODONE HCL 5 MG TABLET PO PRN ×2 (04:01→14:43)
[2019-04-09] MEDS ORDERED: oxyCODONE HCL 5 MG TABLET PO ONE (04:01)
[2019-04-09] MEDS: 0.9 % SODIUM CHLORIDE 10 ML SYRINGE IV SCH ×6 (05:10→20:52)
[2019-04-09] MEDS: PIPERACILLIN SODIUM/TAZOBACTAM 3.375 GM in DEXTROSE 5% IN WATER 50 ML IV SCH ×3 (05:17→20:39)
[2019-04-09] MEDS: METOCLOPRAMIDE 10 MG/2 ML VIAL IV SCH ×3 (05:17→18:02)
[2019-04-09] MEDS: INSULIN LISPRO 1 UNIT/0.01 ML UNIT SQ SCH ×3 (06:01→18:02)
[2019-04-09] MEDS: LIDOCAINE PATCH TOPICAL SCH ×2 (06:03→18:02)
[2019-04-09] MEDS: ENOXAPARIN 30 MG/0.3 ML SYRINGE SQ SCH ×2 (11:49→20:51)
--- NOTE | 2019-04-09 14:17 | General Surgery Progress Note ---
Subjective Patient reports: pain is less, voiding w/o difficulty, no flatus, no bowel movement Narrative: Note initiated : 04/09/19 at 2:15 pm Service Date, if different from initiated Date: [] Patient: Brit Alonzo 78 y/o F admitted on 04/05/19 for Segmental Colectomy with Colostomy Takedown. Chief Complaint: [Patient is stable. Vital signs are stable. She denies nausea. She has not had output through her stoma so far. She is advised that she must become familiar with her stoma in order to adequately care for herself at home.] Objective Temp Pulse Resp BP Pulse Ox 98.3 F 75 20 156/79 95 04/09/19 12:00 04/09/19 04:22 04/09/19 12:00 04/09/19 12:00 04/09/19 12:00 - Additional Data Intake & Output - Last 24 hours: Intake & Output 04/07/19 04/08/19 04/09/19 04/10/19 05:59 05:59 05:59 05:59 Intake Total 2640 3500 2910 Output Total 2224 2960 1205 251 Balance 711 845 5541 -251 Weight 206 lb 1.6 oz 207 lb 9 oz 199 lb - General physical appearance well developed, well nourished, no distress - Eyes PERRL, normal ocular movement - ENT normal pinna, normal nares, normal mucosa, no hearing loss, no congestion - Neck no masses, no bruits, trachea midline, no lymphadenopathy, no venous distension - Respiratory normal expansion, normal respiratory effort, clear to auscultation - Cardiovascular Cardiovascular exam: Present: normal rate and rhythm, RRR, +S1, +S2. Absent: JVD, tachycardia - Abdomen tender (mild incisional tenderness; stoma left lower quadrant is healthy; good active bowel sounds) - Integumentary no rash, no growths, no abnormal pigmentation - Neurologic normal coordination, normal sensation - Musculoskeletal normal gait, normal posture - Psychiatric oriented to time, oriented to person, oriented to place, speech is normal, memory intact - Labs 04/08/19 04:10 04/08/19 04:10 Assessment and Plan (1) Acute diverticulitis of intestine Status: Resolved Assessment and plan: Continue IV antibiotics Check labs in the morning Zofran 4 mg IV or by mouth every 4 hours when necessary nausea Transfer to [facility] [place] status Current Visit: No (2) Fistula, colovaginal Status: Resolved Current Visit: No (3) Type 2 diabetes mellitus, without long-term current use of insulin Status: Chronic Assessment and plan: Cover with medium scale insulin scale Current Visit: No (4) Essential hypertension Problem details: Chronically abnormal ECG; cardiolite normal in 2006. Status: Chronic Current Visit: No (5) Chronic obstructive pulmonary disease Problem details: Continued tobacco use and probable chronic bronchitiis. Hx of positive PPD at age 18; last chest x-ray 08/2012. 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 Status: Chronic Current Visit: No - Time Spent With Patient Total time spent is greater than 50% in coordination of care (as documented) at patient's floor/unit and/or counseling patient:
[2019-04-09] MEDS: HYDROmorphone 2 MG/ML VIAL IV PRN (20:51)
[2019-04-10] MEDS: PIPERACILLIN SODIUM/TAZOBACTAM 3.375 GM in DEXTROSE 5% IN WATER 50 ML IV SCH ×4 (00:04→17:04)
[2019-04-10] MEDS: METOCLOPRAMIDE 10 MG/2 ML VIAL IV SCH ×4 (00:08→17:05)
[2019-04-10] MEDS: INSULIN LISPRO 1 UNIT/0.01 ML UNIT SQ SCH ×4 (00:09→17:38)
[2019-04-10] MEDS: HYDROmorphone 2 MG/ML VIAL IV PRN (03:48)
[2019-04-10] MEDS: 0.9 % SODIUM CHLORIDE 1,000 ML IV SCH ×4 (05:23→17:04)
[2019-04-10] MEDS: 0.9 % SODIUM CHLORIDE 10 ML SYRINGE IV SCH ×6 (05:55→20:43)
[2019-04-10] MEDS: LIDOCAINE PATCH TOPICAL SCH ×2 (06:10→17:05)
[2019-04-10 06:35] LABS: Basophils # (Auto) 0 K/mcL (0.0-0.3); Basophils % (Auto) 0.3 % (0.0-2.0); Eosinophils # (Auto) 0.2 K/mcL (0.0-0.7); Eosinophils % (Auto) 2.6 % (0.0-7.0); Granulocytes % (Auto) 74.6 % (38.0-78.0); Hematocrit 30.5 % (36.0-48.0); Hemoglobin 9.9 g/dL (12.0-15.0); Lymphocytes # (Auto) 1.6 K/mcL (1.5-4.8); Lymphocytes % (Auto) 16.9 % (15.5-49.0); Mean Cell Volume 83.8 fL (80.0-100.0); Mean Corpuscular HGB Conc 32.6 g/dL (31.0-36.0); Mean Platelet Volume 9.5 fL (7.4-10.4); Monocytes # (Auto) 0.5 K/mcL (0.1-0.9); Monocytes % (Auto) 5.6 % (1.0-12.0); Platelet Count 191 K/mcL (140-440); RBC 3.64 M/mcL (4.00-5.20); Red Cell Distribution Width 16.9 % (11.5-14.5); WBC 9.6 K/mcL (4.5-11.0)
[2019-04-10 07:01] LABS: ALT/SGPT 8 U/l (0-40); AST/SGOT 7 U/l (0-37); Albumin 2.7 gm/dL (3.2-5.2); Albumin/Globulin Ratio 0.9 (1.0-2.3); Alkaline Phosphatase 59 U/L (39-117); Bilirubin,Direct 0.3 mg/dL (0.0-0.3); Bilirubin,Total 0.8 mg/dL (0.0-1.0); Blood Urea Nitrogen 6 mg/dl (8-23); Calcium 8.3 mg/dl (8.6-10.4); Carbon Dioxide 20 mmol/L (22-30); Chloride 102 mmol/L (96-108); Glomerular Filtration Rate 88; Glucose 114 mg/dL (70-105); Lactate Dehydrogenase 151 U/L (94-250); Phosphorous 2.1 mg/dL (2.7-4.5); Triglycerides 137 mg/dl (<150); Uric Acid 2.3 mg/dL (2.5-8.0)
[2019-04-10] MEDS: ENOXAPARIN 30 MG/0.3 ML SYRINGE SQ SCH ×2 (08:08→20:42)
[2019-04-10] MEDS: ACETAMINOPHEN 1,000 MG/100 ML BOTTLE IV PRN (08:08)
[2019-04-10] MEDS: oxyCODONE HCL 5 MG TABLET PO PRN ×3 (13:16→22:24)
--- NOTE | 2019-04-10 16:55 | General Surgery Progress Note ---
Subjective Patient reports: feels better, pain is less, tolerating liquids well, flatus, bowel movement, afebrile Narrative: Note initiated : 04/10/19 at 4:53 pm Service Date, if different from initiated Date: [] Patient: Brit Alonzo 78 y/o F admitted on 04/05/19 for Segmental Colectomy with Colostomy Takedown. Chief Complaint: [Patient states that she feels better. Her main complaint is excess urination since the Hernandez catheter has been discontinued. Her pain is better controlled. White count 9.6, hemoglobin 9.9, potassium 3.1, phosphorus 2.1, magnesium 1.7.] Objective Temp Pulse Resp BP Pulse Ox 98.4 F 68 18 157/79 92 04/10/19 12:00 04/10/19 12:00 04/10/19 12:00 04/10/19 12:00 04/10/19 12:00 - Additional Data Intake & Output - Last 24 hours: Intake & Output 04/08/19 04/09/19 04/10/19 04/11/19 05:59 05:59 05:59 05:59 Intake Total 3500 2960 2480 1400 Output Total 2960 1205 607 198 Balance 540 1755 1873 1202 Weight 207 lb 9 oz 199 lb 199 lb 199 lb - General physical appearance well developed, well nourished, no distress - Eyes PERRL, normal ocular movement - ENT normal pinna, normal nares, normal mucosa, no hearing loss, no congestion - Neck no masses, no bruits, trachea midline, no lymphadenopathy, no venous distension - Respiratory normal expansion, normal respiratory effort, clear to auscultation - Cardiovascular Cardiovascular exam: Present: normal rate and rhythm, RRR, +S1, +S2. Absent: JVD, tachycardia - Abdomen tender (moderate tenderness incision), bowel sounds (good active bowel sounds), surgical scars (incision looks good and stoma looks good), masses (none) Hernia: none - Integumentary no rash, no growths, no abnormal pigmentation - Neurologic normal coordination, normal sensation - Musculoskeletal normal gait, normal posture - Psychiatric oriented to time, oriented to person, oriented to place, speech is normal, memory intact - Labs 04/10/19 04:45 04/10/19 04:45 Diabetes panel 04/10/19 Range/Units 04:45 Sodium 137 (133-145) mmol/L Potassium 3.1 L (3.3-5.1) mmol/L Chloride 102 (96-108) mmol/L Carbon Dioxide 20 L (22-30) mmol/L BUN 6 L (8-23) mg/dl Creatinine 0.6 (0.6-1.1) mg/dl Glucose 114 H (70-105) mg/dL Calcium 8.3 L (8.6-10.4) mg/dl AST 7 (0-37) U/l ALT 8 (0-40) U/l Alkaline Phosphatase 59 (39-117) U/L Total Protein 5.7 L (5.9-8.4) gm/dL Albumin 2.7 L (3.2-5.2) gm/dL Triglycerides 137 (<150) mg/dl Calcium panel 04/10/19 Range/Units 04:45 Calcium 8.3 L (8.6-10.4) mg/dl Phosphorus 2.1 L (2.7-4.5) mg/dL Albumin 2.7 L (3.2-5.2) gm/dL Pituitary panel 04/10/19 Range/Units 04:45 Sodium 137 (133-145) mmol/L Potassium 3.1 L (3.3-5.1) mmol/L Chloride 102 (96-108) mmol/L Carbon Dioxide 20 L (22-30) mmol/L BUN 6 L (8-23) mg/dl Creatinine 0.6 (0.6-1.1) mg/dl Glucose 114 H (70-105) mg/dL Calcium 8.3 L (8.6-10.4) mg/dl Adrenal panel 04/10/19 Range/Units 04:45 Sodium 137 (133-145) mmol/L Potassium 3.1 L (3.3-5.1) mmol/L Chloride 102 (96-108) mmol/L Carbon Dioxide 20 L (22-30) mmol/L BUN 6 L (8-23) mg/dl Creatinine 0.6 (0.6-1.1) mg/dl Glucose 114 H (70-105) mg/dL Calcium 8.3 L (8.6-10.4) mg/dl Total Bilirubin 0.8 (0.0-1.0) mg/dL AST 7 (0-37) U/l ALT 8 (0-40) U/l Alkaline Phosphatase 59 (39-117) U/L Total Protein 5.7 L (5.9-8.4) gm/dL Albumin 2.7 L (3.2-5.2) gm/dL Assessment and Plan (1) Acute diverticulitis of intestine Status: Resolved Assessment and plan: Continue IV antibiotics Check labs in the morning Zofran 4 mg IV or by mouth every 4 hours when necessary nausea Replace potassium phosphorus and magnesium Decreased IV antibiotic right Replace Hernandez catheter Advanced to full liquid diet Current Visit: No (2) Fistula, colovaginal Status: Resolved Current Visit: No (3) Type 2 diabetes mellitus, without long-term current use of insulin Status: Chronic Assessment and plan: Cover with medium scale insulin scale Current Visit: No (4) Essential hypertension Problem details: Chronically abnormal ECG; cardiolite normal in 2006. Status: Chronic Current Visit: No (5) Chronic obstructive pulmonary disease Problem details: Continued tobacco use and probable chronic bronchitiis. Hx of positive PPD at age 18; last chest x-ray 08/2012. 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 Status: Chronic Current Visit: No - Time Spent With Patient Total time spent is greater than 50% in coordination of care (as documented) at patient's floor/unit and/or counseling patient:
[2019-04-10] MEDS: POTASSIUM PHOSPHATE 40 MEQ in DEXTROSE 5% IN WATER 500 ML IV SCH ×2 (17:38→21:34)
[2019-04-11] MEDS: PIPERACILLIN SODIUM/TAZOBACTAM 3.375 GM in DEXTROSE 5% IN WATER 50 ML IV SCH ×5 (00:14→23:29)
[2019-04-11] MEDS: INSULIN LISPRO 1 UNIT/0.01 ML UNIT SQ SCH ×5 (00:20→20:13)
[2019-04-11] MEDS: METOCLOPRAMIDE 10 MG/2 ML VIAL IV SCH ×5 (00:21→23:33)
[2019-04-11] MEDS: oxyCODONE HCL 5 MG TABLET PO PRN ×4 (03:10→20:12)
[2019-04-11] MEDS: 0.9 % SODIUM CHLORIDE 10 ML SYRINGE IV SCH ×6 (05:02→20:14)
[2019-04-11] MEDS: LIDOCAINE PATCH TOPICAL SCH ×2 (05:04→18:02)
[2019-04-11 05:58] LABS: Basophils # (Auto) 0 K/mcL (0.0-0.3); Basophils % (Auto) 0.3 % (0.0-2.0); Eosinophils # (Auto) 0.3 K/mcL (0.0-0.7); Eosinophils % (Auto) 3.5 % (0.0-7.0); Hematocrit 29.3 % (36.0-48.0); Hemoglobin 9.6 g/dL (12.0-15.0); Lymphocytes # (Auto) 1.4 K/mcL (1.5-4.8); Lymphocytes % (Auto) 15.7 % (15.5-49.0); Mean Cell Volume 83.2 fL (80.0-100.0); Mean Corpuscular HGB Conc 32.6 g/dL (31.0-36.0); Monocytes # (Auto) 0.6 K/mcL (0.1-0.9); Monocytes % (Auto) 6.5 % (1.0-12.0); Platelet Count 242 K/mcL (140-440); RBC 3.52 M/mcL (4.00-5.20); Red Cell Distribution Width 15.9 % (11.5-14.5); WBC 9.1 K/mcL (4.5-11.0)
[2019-04-11 06:29] LABS: ALT/SGPT 7 U/l (0-40); AST/SGOT 7 U/l (0-37); Albumin 2.5 gm/dL (3.2-5.2); Albumin/Globulin Ratio 0.9 (1.0-2.3); Alkaline Phosphatase 72 U/L (39-117); Bilirubin,Direct < 0.2 mg/dL (0.0-0.3); Bilirubin,Total 0.4 mg/dL (0.0-1.0); Blood Urea Nitrogen 3 mg/dl (8-23); Calcium 8.2 mg/dl (8.6-10.4); Carbon Dioxide 23 mmol/L (22-30); Chloride 102 mmol/L (96-108); Globulin 2.9 gm/dL (2.2-3.7); Glomerular Filtration Rate 93; Glucose 133 mg/dL (70-105); Lactate Dehydrogenase 188 U/L (94-250); Phosphorous 3.1 mg/dL (2.7-4.5); Triglycerides 148 mg/dl (<150)
[2019-04-11] MEDS: ENOXAPARIN 30 MG/0.3 ML SYRINGE SQ SCH ×2 (08:56→20:12)
--- NOTE | 2019-04-11 14:54 | General Surgery Progress Note ---
Subjective Patient reports: feels better, pain is less, tolerating liquids well, flatus, no bowel movement, afebrile Narrative: Note initiated : 04/11/19 at 2:52 pm Service Date, if different from initiated Date: [] Patient: Brit Alonzo 78 y/o F admitted on 04/05/19 for Segmental Colectomy with Colostomy Takedown. Chief Complaint: [Patient continues to improve. She is bright and alert and aware. She is more conversational and is taken more interested in her care. Her stoma is working well and she is beginning to assist with stoma care. White blood count 9.1, hemoglobin 9.6, hematocrit 29.3, potassium 3.1, BUN 3, creatinine 0.5, magnesium 1.4.] Objective Temp Pulse Resp BP Pulse Ox 99.1 F H 72 18 134/73 90 04/11/19 12:00 04/11/19 12:00 04/11/19 12:00 04/11/19 12:00 04/11/19 12:00 - Additional Data Intake & Output - Last 24 hours: Intake & Output 04/09/19 04/10/19 04/11/19 04/12/19 05:59 05:59 05:59 05:59 Intake Total 2960 2480 3860.0909 200 Output Total 2949 915 7493 920 Balance 1755 1873 1816.0909 -720 Weight 199 lb 199 lb 200 lb - General physical appearance well developed, well nourished, no distress - Eyes PERRL, normal ocular movement - ENT normal pinna, normal nares, normal mucosa, no hearing loss, no congestion - Neck no masses, no bruits, trachea midline, no lymphadenopathy, no venous distension - Respiratory normal expansion, normal respiratory effort, clear to auscultation - Cardiovascular Cardiovascular exam: Present: normal rate and rhythm, RRR, +S1, +S2. Absent: bradycardia, JVD, tachycardia - Abdomen tender (mild incisional tenderness; active bowel sounds) - Integumentary no rash, no growths, no abnormal pigmentation - Neurologic normal coordination, normal sensation - Musculoskeletal normal gait, normal posture - Psychiatric oriented to time, oriented to person, oriented to place, speech is normal, memory intact - Labs 04/11/19 04:22 04/11/19 04:22 Diabetes panel 04/11/19 Range/Units 04:22 Sodium 134 (133-145) mmol/L Potassium 3.1 L (3.3-5.1) mmol/L Chloride 102 (96-108) mmol/L Carbon Dioxide 23 (22-30) mmol/L BUN 3 L (8-23) mg/dl Creatinine 0.5 L (0.6-1.1) mg/dl Glucose 133 H (70-105) mg/dL Calcium 8.2 L (8.6-10.4) mg/dl AST 7 (0-37) U/l ALT 7 (0-40) U/l Alkaline Phosphatase 72 (39-117) U/L Total Protein 5.4 L (5.9-8.4) gm/dL Albumin 2.5 L (3.2-5.2) gm/dL Triglycerides 148 (<150) mg/dl Calcium panel 04/11/19 Range/Units 04:22 Calcium 8.2 L (8.6-10.4) mg/dl Phosphorus 3.1 (2.7-4.5) mg/dL Albumin 2.5 L (3.2-5.2) gm/dL Pituitary panel 04/11/19 Range/Units 04:22 Sodium 134 (133-145) mmol/L Potassium 3.1 L (3.3-5.1) mmol/L Chloride 102 (96-108) mmol/L Carbon Dioxide 23 (22-30) mmol/L BUN 3 L (8-23) mg/dl Creatinine 0.5 L (0.6-1.1) mg/dl Glucose 133 H (70-105) mg/dL Calcium 8.2 L (8.6-10.4) mg/dl Adrenal panel 04/11/19 Range/Units 04:22 Sodium 134 (133-145) mmol/L Potassium 3.1 L (3.3-5.1) mmol/L Chloride 102 (96-108) mmol/L Carbon Dioxide 23 (22-30) mmol/L BUN 3 L (8-23) mg/dl Creatinine 0.5 L (0.6-1.1) mg/dl Glucose 133 H (70-105) mg/dL Calcium 8.2 L (8.6-10.4) mg/dl Total Bilirubin 0.4 (0.0-1.0) mg/dL AST 7 (0-37) U/l ALT 7 (0-40) U/l Alkaline Phosphatase 72 (39-117) U/L Total Protein 5.4 L (5.9-8.4) gm/dL Albumin 2.5 L (3.2-5.2) gm/dL Assessment and Plan (1) Acute diverticulitis of intestine Status: Resolved Assessment and plan: Continue IV antibiotics Check labs in the morning Zofran 4 mg IV or by mouth every 4 hours when necessary nausea Replace potassium phosphorus and magnesium Replace Hernandez catheter Advanced to soft diet Current Visit: No (2) Fistula, colovaginal Status: Resolved Current Visit: No (3) Type 2 diabetes mellitus, without long-term current use of insulin Status: Chronic Assessment and plan: Cover with medium scale insulin scale Current Visit: No (4) Essential hypertension Problem details: Chronically abnormal ECG; cardiolite normal in 2006. Status: Chronic Current Visit: No (5) Chronic obstructive pulmonary disease Problem details: Continued tobacco use and probable chronic bronchitiis. Hx of positive PPD at age 18; last chest x-ray 08/2012. 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 Status: Chronic Current Visit: No - Time Spent With Patient Total time spent is greater than 50% in coordination of care (as documented) at patient's floor/unit and/or counseling patient:
[2019-04-11] MEDS ORDERED: MAGNESIUM SULFATE 32.48 MEQ in DEXTROSE 5% IN WATER 50 ML IV ONE (14:55)
[2019-04-11] MEDS ORDERED: POTASSIUM CHLORIDE 40 MEQ in DEXTROSE 5% IN WATER 500 ML IV ONE (14:55)
[2019-04-11] MEDS: MAGNESIUM SULFATE 4 GM/100 ML BAG IV SCH ×2 (15:29→18:02)
[2019-04-11] MEDS: 0.9 % SODIUM CHLORIDE 1,000 ML IV SCH (16:45)
[2019-04-12] MEDS: PIPERACILLIN SODIUM/TAZOBACTAM 3.375 GM in DEXTROSE 5% IN WATER 50 ML IV SCH ×4 (05:17→23:42)
[2019-04-12] MEDS: 0.9 % SODIUM CHLORIDE 10 ML SYRINGE IV SCH ×6 (05:17→20:40)
[2019-04-12] MEDS: METOCLOPRAMIDE 10 MG/2 ML VIAL IV SCH ×4 (05:18→23:42)
[2019-04-12] MEDS: LIDOCAINE PATCH TOPICAL SCH ×2 (05:18→17:46)
[2019-04-12 05:57] LABS: Basophils # (Auto) 0 K/mcL (0.0-0.3); Basophils % (Auto) 0.5 % (0.0-2.0); Eosinophils # (Auto) 0.3 K/mcL (0.0-0.7); Eosinophils % (Auto) 4.7 % (0.0-7.0); Granulocytes % (Auto) 64.9 % (38.0-78.0); Hematocrit 28.2 % (36.0-48.0); Hemoglobin 9.2 g/dL (12.0-15.0); Lymphocytes # (Auto) 1.7 K/mcL (1.5-4.8); Mean Cell Volume 83.6 fL (80.0-100.0); Mean Corpuscular HGB Conc 32.4 g/dL (31.0-36.0); Monocytes # (Auto) 0.5 K/mcL (0.1-0.9); Monocytes % (Auto) 6.9 % (1.0-12.0); Platelet Count 279 K/mcL (140-440); RBC 3.38 M/mcL (4.00-5.20); Red Cell Distribution Width 15.9 % (11.5-14.5); WBC 7.4 K/mcL (4.5-11.0)
[2019-04-12 06:40] LABS: ALT/SGPT 6 U/l (0-40); AST/SGOT 9 U/l (0-37); Albumin 2.3 gm/dL (3.2-5.2); Albumin/Globulin Ratio 0.8 (1.0-2.3); Alkaline Phosphatase 57 U/L (39-117); Bilirubin,Direct < 0.2 mg/dL (0.0-0.3); Bilirubin,Total 0.4 mg/dL (0.0-1.0); Blood Urea Nitrogen 2 mg/dl (8-23); Calcium 7.9 mg/dl (8.6-10.4); Carbon Dioxide 22 mmol/L (22-30); Chloride 103 mmol/L (96-108); Globulin 2.9 gm/dL (2.2-3.7); Glomerular Filtration Rate 88; Glucose 114 mg/dL (70-105); Lactate Dehydrogenase 178 U/L (94-250); Phosphorous 2.4 mg/dL (2.7-4.5); Triglycerides 156 mg/dl (<150); Uric Acid 2.2 mg/dL (2.5-8.0)
[2019-04-12] MEDS: oxyCODONE HCL 5 MG TABLET PO PRN ×3 (07:54→17:47)
[2019-04-12] MEDS: ENOXAPARIN 30 MG/0.3 ML SYRINGE SQ SCH ×2 (07:56→20:39)
[2019-04-12] MEDS: INSULIN LISPRO 1 UNIT/0.01 ML UNIT SQ SCH ×4 (08:03→20:39)
--- NOTE | 2019-04-12 16:06 | General Surgery Progress Note ---
Subjective Patient reports: feels better, pain is less, tolerating a regular diet, flatus, bowel movement, afebrile Narrative: Note initiated : 04/12/19 at 4:04 pm Service Date, if different from initiated Date: [] Patient: Brit Alonzo 78 y/o F admitted on 04/05/19 for Segmental Colectomy with Colostomy Takedown. Chief Complaint: [Patient continues to do well. Her abdominal discomfort is much improved. She denies nausea. She is in much better spirits. She is ambulating some in the room. She is stable for transfer to [facility] in the morning.] Objective Temp Pulse Resp BP Pulse Ox 98.3 F 78 18 115/68 90 04/12/19 11:56 04/12/19 11:56 04/12/19 11:56 04/12/19 11:56 04/12/19 11:56 - Additional Data Intake & Output - Last 24 hours: Intake & Output 04/10/19 04/11/19 04/12/19 04/13/19 05:59 05:59 05:59 05:59 Intake Total 2480 3860.0909 1720 240 Output Total 607 2044 3060 Balance 1873 1816.0909 -1340 240 Weight 199 lb 200 lb 202 lb 202 lb - General physical appearance well developed, well nourished, no distress - Eyes PERRL, normal ocular movement - ENT normal pinna, normal nares, normal mucosa, no hearing loss, no congestion - Neck no masses, no bruits, trachea midline, no lymphadenopathy, no venous distension - Respiratory normal expansion, normal respiratory effort, clear to auscultation - Cardiovascular Cardiovascular exam: Present: normal rate and rhythm, RRR, +S1, +S2. Absent: bradycardia, JVD, tachycardia - Abdomen non tender, bowel sounds (present), surgical scars ( abdominal incision is healing uneventfully; stoma looks good and is functioning), masses (none) - Integumentary no rash, no growths, no abnormal pigmentation - Neurologic normal coordination, normal sensation - Musculoskeletal normal gait, normal posture - Psychiatric oriented to time, oriented to person, oriented to place, speech is normal, memory intact - Labs 04/12/19 04:32 04/12/19 04:32 Diabetes panel 04/12/19 Range/Units 04:32 Sodium 136 (133-145) mmol/L Potassium 3.4 (3.3-5.1) mmol/L Chloride 103 (96-108) mmol/L Carbon Dioxide 22 (22-30) mmol/L BUN 2 L (8-23) mg/dl Creatinine 0.6 (0.6-1.1) mg/dl Glucose 114 H (70-105) mg/dL Calcium 7.9 L (8.6-10.4) mg/dl AST 9 (0-37) U/l ALT 6 (0-40) U/l Alkaline Phosphatase 57 (39-117) U/L Total Protein 5.2 L (5.9-8.4) gm/dL Albumin 2.3 L (3.2-5.2) gm/dL Triglycerides 156 H (<150) mg/dl Calcium panel 04/12/19 Range/Units 04:32 Calcium 7.9 L (8.6-10.4) mg/dl Phosphorus 2.4 L (2.7-4.5) mg/dL Albumin 2.3 L (3.2-5.2) gm/dL Pituitary panel 04/12/19 Range/Units 04:32 Sodium 136 (133-145) mmol/L Potassium 3.4 (3.3-5.1) mmol/L Chloride 103 (96-108) mmol/L Carbon Dioxide 22 (22-30) mmol/L BUN 2 L (8-23) mg/dl Creatinine 0.6 (0.6-1.1) mg/dl Glucose 114 H (70-105) mg/dL Calcium 7.9 L (8.6-10.4) mg/dl Adrenal panel 04/12/19 Range/Units 04:32 Sodium 136 (133-145) mmol/L Potassium 3.4 (3.3-5.1) mmol/L Chloride 103 (96-108) mmol/L Carbon Dioxide 22 (22-30) mmol/L BUN 2 L (8-23) mg/dl Creatinine 0.6 (0.6-1.1) mg/dl Glucose 114 H (70-105) mg/dL Calcium 7.9 L (8.6-10.4) mg/dl Total Bilirubin 0.4 (0.0-1.0) mg/dL AST 9 (0-37) U/l ALT 6 (0-40) U/l Alkaline Phosphatase 57 (39-117) U/L Total Protein 5.2 L (5.9-8.4) gm/dL Albumin 2.3 L (3.2-5.2) gm/dL Assessment and Plan (1) Acute diverticulitis of intestine Status: Resolved Assessment and plan: Continue IV antibiotics Check labs in the morning Zofran 4 mg IV or by mouth every 4 hours when necessary nausea Replace potassium phosphorus and magnesium Replace Hernandez catheter Advanced to soft diet Current Visit: No (2) Fistula, colovaginal Status: Resolved Current Visit: No (3) Type 2 diabetes mellitus, without long-term current use of insulin Status: Chronic Assessment and plan: Cover with medium scale insulin scale Current Visit: No (4) Essential hypertension Problem details: Chronically abnormal ECG; cardiolite normal in 2006. Status: Chronic Current Visit: No (5) Chronic obstructive pulmonary disease Problem details: Continued tobacco use and probable chronic bronchitiis. Hx of positive PPD at age 18; last chest x-ray 08/2012. 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 Status: Chronic Current Visit: No - Time Spent With Patient Total time spent is greater than 50% in coordination of care (as documented) at patient's floor/unit and/or counseling patient:
[2019-04-13] MEDS: PIPERACILLIN SODIUM/TAZOBACTAM 3.375 GM in DEXTROSE 5% IN WATER 50 ML IV SCH ×2 (05:14→12:22)
[2019-04-13] MEDS: METOCLOPRAMIDE 10 MG/2 ML VIAL IV SCH ×2 (05:15→12:21)
[2019-04-13] MEDS: 0.9 % SODIUM CHLORIDE 10 ML SYRINGE IV SCH ×2 (05:15→05:16)
[2019-04-13] MEDS: LIDOCAINE PATCH TOPICAL SCH (05:15)
[2019-04-13] MEDS: INSULIN LISPRO 1 UNIT/0.01 ML UNIT SQ SCH ×2 (07:20→12:22)
[2019-04-13] MEDS: oxyCODONE HCL 5 MG TABLET PO PRN ×2 (07:21→12:33)
[2019-04-13] MEDS: ENOXAPARIN 30 MG/0.3 ML SYRINGE SQ SCH (09:46)
--- NOTE | 2019-04-13 12:53 | Discharge Summary ---
Providers - Providers Patient information: Note initiated : 04/13/19 at 12:50 pm Service Date, if different from initiated Date: [] Patient: Brit Alonzo 78 y/o F admitted on 04/05/19 for Segmental Colectomy with Colostomy Takedown. Chief Complaint: [] Date of admission: 04/05/19 Discharge date: 04/13/19 Attending physician: Angelia Blount Hospitalization Hospital Course: 78-year-old female with history of colostomy status post diversion for perforated diverticulitis. Patient was scheduled to have colostomy takedown and resection of the inflamed sigmoid. At the time of surgery there was severe inflammation of the rectosigmoid extending down to the rectum and the residual rectum was still severely inflamed and very stenotic. It was felt not to be amenable to re-anastomosis. The sigmoid was resected down to healthy rectal stump. It was felt that with the degree of inflammation in the pelvis that it would be unsafe to do a reanastomosis. Patient was somewhat disappointed but has a septated her stoma and it appears that she will be willing to continue it permanently. She had an uneventful postoperative course.she had mild postoperative ileus but diet was slowly advanced and she is done well since that time. She still has a moderate amount of serosanguineous drainage and her EVIN drain. Her incision is healing uneventfully. She did not have any other perioperative problems. Discharge diagnosis: colostomy status Secondary discharge diagnosis: Chronic diverticulitis Reason for admission: segmental sigmoid colectomy with colostomy takedown Procedures: Segmental sigmoid resection with Rowe's pouch Pertinent studies/significant findings: none Complications: None Exam Temp Pulse Resp BP Pulse Ox 98.4 F 72 14 148/68 90 04/13/19 07:29 04/13/19 07:29 04/13/19 07:29 04/13/19 07:29 04/13/19 07:29 - General physical appearance well developed, well nourished, no distress - Eyes PERRL, normal ocular movement - ENT normal pinna, normal nares, normal mucosa, no hearing loss, no congestion - Head Head exam IM: Present: atraumatic, normocephalic - Neck no masses, no bruits, trachea midline, no lymphadenopathy, no venous distension - Cardiovascular Cardiovascular exam IM: Present: normal rate and rhythm - Respiratory normal expansion, normal respiratory effort, clear to auscultation - Abdomen Abdomen: Present: soft, tender (mild incisional tenderness; functioning stoma; drain with serosanguineous drainage), bowel sounds Hernia: Present: none - Genitourinary Present: normal external genitalia - Integumentary Present: no rash, no growths, no abnormal pigmentation - Neurologic Present: normal coordination, normal sensation - Musculoskeletal Present: normal gait, normal posture - Psychiatric Present: oriented to time, oriented to person, oriented to place, speech is normal, memory intact Discharge Plan - Patient/Caregiver Discharge Instructions Activity: increase activity as tolerated Diet: Regular Diet Prescriptions: Butalb/Acetaminophen/Caffeine [Rdqdjy-Qjvwhmwt-Pxyl 50-300-40] 1 - 2 cap PO DAILYP PRN #30 cap PRN Reason: Migraine Headache oxyCODONE HCL [Roxicodone] 10 mg PO Q4HP PRN #30 tab PRN Reason: Pain Level 3-6 - Follow up Plan Follow up with: Angelia Blount MD [Physician] - 04/20/19 1:15 pm Disposition: Home, Self-Care Care Plan Goals: This discharge packet is provided to you to help keep you informed about your care. We want to ensure you get everything you need when you go home. You will also be receiving a call from us in a few days to follow up with you and see how you are doing since your discharge. This gives us a chance to listen to any concerns you maybe experiencing since you were discharged or any additional needs you may have, as well as providing us feedback on your care experience. We strive to always provide excellent care and thank you for your feedback and for choosing [facility]. Prognosis: Good Rehab Potential: Good I certify that the patient requires SNF services.: Yes Overall status at discharge: patient is progressing back to baseline Pending Studies Resuscitation Status Full Code Diet GI Soft/Transitional Start WedApr 11 1625 Diagnostic Test (Pha) (Accu-Chek) 1 each FS ACHS WINNIE; Protocol Last Admin: 04/13/19 12:21 Dose: 1 each Documented by: [email or web address] Admin: 04/13/19 07:20 Dose: 1 each Documented by: [email or web address] Admin: 04/12/19 20:39 Dose: 1 each Documented by: [email or web address] Admin: 04/12/19 17:50 Dose: 1 each Documented by: Admin: 04/12/19 12:47 Dose: 1 each Documented by: Admin: 04/12/19 07:59 Dose: 1 each Documented by: Admin: 04/11/19 20:13 Dose: 1 each Documented by: MISTY Enoxaparin Sodium (Lovenox) 30 mg SQ BID WINNIE Last Admin: 04/13/19 09:46 Dose: 30 mg Documented by: Admin: 04/12/19 20:39 Dose: 30 mg Documented by: Admin: 04/12/19 07:56 Dose: 30 mg Documented by: Admin: 04/11/19 20:12 Dose: 30 mg Documented by: Admin: 04/11/19 08:56 Dose: 30 mg Documented by: Admin: 04/10/19 20:42 Dose: 30 mg Documented by: Admin: 04/10/19 08:08 Dose: 30 mg Documented by: MARY GRACE Admin: 04/09/19 20:51 Dose: 30 mg Documented by: Admin: 04/09/19 11:49 Dose: 30 mg Documented by: Admin: 04/08/19 20:25 Dose: 30 mg Documented by: CRISTO Hydromorphone HCl (Dilaudid) 1 mg IV Q2HP PRN PRN Reason: PAIN LEVEL > 6 Last Admin: 04/10/19 03:48 Dose: 1 mg Documented by: Admin: 04/09/19 20:51 Dose: 1 mg Documented by: Admin: 04/08/19 23:29 Dose: 1 mg Documented by: CRISTO Acetaminophen (Ofirmev) 1,000 mg in 100 mls @ 200 mls/hr IV Q6HP PRN PRN Reason: PAIN/FEVER > 101 Last Infusion: 04/10/19 09:11 Dose: 0 mls/hr Documented by: MARY GRACE Admin: 04/10/19 08:08 Dose: 200 mls/hr Documented by: MARY GRACE Infusion: 04/09/19 22:12 Dose: 200 mls/hr Documented by: MARY GRACE Admin: 04/09/19 21:42 Dose: 200 mls/hr Documented by: Infusion: 04/09/19 02:41 Dose: 0 mls/hr Documented by: Admin: 04/09/19 01:26 Dose: 200 mls/hr Documented by: Infusion: 04/08/19 20:25 Dose: 0 mls/hr Documented by: Admin: 04/08/19 19:11 Dose: 200 mls/hr Documented by: Infusion: 04/08/19 12:14 Dose: 200 mls/hr Documented by: Admin: 04/08/19 11:44 Dose: 200 mls/hr Documented by: TORIBIO Piperacillin Sod/Tazobactam (Sod 3.375 gm/ Dextrose) 50 mls @ 100 mls/hr IV Q6H WINNIE; Protocol Last Admin: 04/13/19 12:22 Dose: 100 mls/hr Documented by: [email or web address] Infusion: 04/13/19 06:01 Dose: 100 mls/hr Documented by: Admin: 04/13/19 05:14 Dose: 100 mls/hr Documented by: Infusion: 04/13/19 00:12 Dose: 100 mls/hr Documented by: Admin: 04/12/19 23:42 Dose: 100 mls/hr Documented by: Infusion: 04/12/19 20:40 Dose: 100 mls/hr Documented by: Admin: 04/12/19 17:51 Dose: 100 mls/hr Documented by: [email or web address] Infusion: 04/12/19 12:30 Dose: 0 mls/hr Documented by: [email or web address] Admin: 04/12/19 12:00 Dose: 100 mls/hr Documented by: [id number] Infusion: 04/12/19 05:49 Dose: 100 mls/hr Documented by: Admin: 04/12/19 05:17 Dose: 100 mls/hr Documented by: Infusion: 04/12/19 05:06 Dose: 100 mls/hr Documented by: Admin: 04/11/19 23:29 Dose: 100 mls/hr Documented by: Infusion: 04/11/19 21:28 Dose: 100 mls/hr Documented by: Admin: 04/11/19 17:30 Dose: 100 mls/hr Documented by: Infusion: 04/11/19 12:15 Dose: 0 mls/hr Documented by: Admin: 04/11/19 11:45 Dose: 100 mls/hr Documented by: Infusion: 04/11/19 05:31 Dose: 100 mls/hr Documented by: Admin: 04/11/19 05:01 Dose: 100 mls/hr Documented by: Infusion: 04/11/19 02:56 Dose: 100 mls/hr Documented by: Admin: 04/11/19 00:14 Dose: 100 mls/hr Documented by: Infusion: 04/10/19 20:05 Dose: 100 mls/hr Documented by: Admin: 04/10/19 17:04 Dose: 100 mls/hr Documented by: Infusion: 04/10/19 15:43 Dose: 0 mls/hr Documented by: Admin: 04/10/19 12:06 Dose: 100 mls/hr Documented by: Infusion: 04/10/19 06:30 Dose: 0 mls/hr Documented by: Admin: 04/10/19 05:55 Dose: 100 mls/hr Documented by: Infusion: 04/10/19 00:34 Dose: 100 mls/hr Documented by: [email or web address] Admin: 04/10/19 00:04 Dose: 100 mls/hr Documented by: Infusion: 04/09/19 21:09 Dose: 100 mls/hr Documented by: Admin: 04/09/19 20:39 Dose: 100 mls/hr Documented by: Infusion: 04/09/19 16:29 Dose: 0 mls/hr Documented by: Admin: 04/09/19 15:59 Dose: 100 mls/hr Documented by: Infusion: 04/09/19 05:47 Dose: 100 mls/hr Documented by: Admin: 04/09/19 05:17 Dose: 100 mls/hr Documented by: Infusion: 04/09/19 02:41 Dose: 0 mls/hr Documented by: Admin: 04/08/19 23:29 Dose: 100 mls/hr Documented by: Infusion: 04/08/19 17:21 Dose: 100 mls/hr Documented by: Admin: 04/08/19 16:51 Dose: 100 mls/hr Documented by: Infusion: 04/08/19 14:34 Dose: 100 mls/hr Documented by: Admin: 04/08/19 14:04 Dose: 100 mls/hr Documented by: TORIBIO Insulin Human Lispro (Humalog) 0 unit SQ ACHS WINNIE; Protocol Last Admin: 04/13/19 12:22 Dose: Not Given Documented by: Admin: 04/13/19 07:20 Dose: Not Given Documented by: Admin: 04/12/19 20:39 Dose: 2 unit Documented by: Admin: 04/12/19 17:51 Dose: Not Given Documented by: Admin: 04/12/19 12:48 Dose: 2 unit Documented by: Admin: 04/12/19 08:03 Dose: 2 unit Documented by: Admin: 04/11/19 20:13 Dose: 6 unit Documented by: MISTY Lidocaine (Lidoderm) 1 patch TOPICAL DAILY@1800 WINNIE Last Admin: 04/12/19 17:46 Dose: 1 patch Documented by: [email or web address] Admin: 04/11/19 18:02 Dose: 1 patch Documented by: Admin: 04/10/19 17:05 Dose: 1 patch Documented by: MARY GRACE Admin: 04/09/19 18:02 Dose: 1 patch Documented by: Admin: 04/08/19 16:43 Dose: 1 patch Documented by: TORIBIO Lidocaine (Lidoderm) 0 patch TOPICAL DAILY@0600 WINNIE Last Admin: 04/13/19 05:15 Dose: Not Given Documented by: Admin: 04/12/19 05:18 Dose: Not Given Documented by: Admin: 04/11/19 05:04 Dose: Not Given Documented by: Admin: 04/10/19 06:10 Dose: Not Given Documented by: Admin: 04/09/19 06:03 Dose: Not Given Documented by: CRISTO Metoclopramide HCl (Reglan) 10 mg IV Q6 WINNIE Last Admin: 04/13/19 12:21 Dose: 10 mg Documented by: Admin: 04/13/19 05:15 Dose: 10 mg Documented by: Admin: 04/12/19 23:42 Dose: 10 mg Documented by: Admin: 04/12/19 17:47 Dose: 10 mg Documented by: [email or web address] Admin: 04/12/19 12:47 Dose: 10 mg Documented by: Admin: 04/12/19 05:18 Dose: 10 mg Documented by: Admin: 04/11/19 23:33 Dose: 10 mg Documented by: Admin: 04/11/19 18:02 Dose: 10 mg Documented by: Admin: 04/11/19 11:45 Dose: 10 mg Documented by: Admin: 04/11/19 05:23 Dose: 10 mg Documented by: Admin: 04/11/19 00:21 Dose: 10 mg Documented by: Admin: 04/10/19 17:05 Dose: 10 mg Documented by: MARY GRACE Admin: 04/10/19 12:06 Dose: 10 mg Documented by: MARY GRACE Admin: 04/10/19 06:10 Dose: 10 mg Documented by: Admin: 04/10/19 00:08 Dose: 10 mg Documented by: Admin: 04/09/19 18:02 Dose: 10 mg Documented by: Admin: 04/09/19 15:55 Dose: 10 mg Documented by: Admin: 04/09/19 05:17 Dose: 10 mg Documented by: Admin: 04/08/19 23:29 Dose: 10 mg Documented by: Admin: 04/08/19 16:43 Dose: 10 mg Documented by: Admin: 04/08/19 14:02 Dose: 10 mg Documented by: TORIBIO Oxycodone HCl (Roxicodone) 10 mg PO Q4HP PRN PRN Reason: PAIN LEVEL 3-6 Last Admin: 04/13/19 12:33 Dose: 10 mg Documented by: [email or web address] Admin: 04/13/19 07:21 Dose: 10 mg Documented by: [email or web address] Admin: 04/12/19 17:47 Dose: 10 mg Documented by: [email or web address] Admin: 04/12/19 12:46 Dose: 10 mg Documented by: [email or web address] Admin: 04/12/19 07:54 Dose: 10 mg Documented by: [email or web address] Admin: 04/11/19 20:12 Dose: 10 mg Documented by: Admin: 04/11/19 16:13 Dose: 10 mg Documented by: Admin: 04/11/19 11:59 Dose: 10 mg Documented by: Admin: 04/11/19 03:10 Dose: 10 mg Documented by: Admin: 04/10/19 22:24 Dose: 10 mg Documented by: Admin: 04/10/19 17:06 Dose: 10 mg Documented by: Admin: 04/10/19 13:16 Dose: 10 mg Documented by: Admin: 04/09/19 14:43 Dose: 10 mg Documented by: [email or web address] Admin: 04/09/19 04:01 Dose: 10 mg Documented by: Admin: 04/08/19 23:30 Dose: 10 mg Documented by: NSTOVER Sodium Chloride (Saline Flush) 10 ml IV Q8 WINNIE Last Admin: 04/13/19 05:15 Dose: 10 ml Documented by: Admin: 04/12/19 20:40 Dose: 10 ml Documented by: Admin: 04/12/19 12:48 Dose: 10 ml Documented by: [email or web address] Admin: 04/12/19 05:19 Dose: 10 ml Documented by: Admin: 04/11/19 20:14 Dose: Not Given Documented by: Admin: 04/11/19 14:16 Dose: Not Given Documented by: Admin: 04/11/19 05:04 Dose: Not Given Documented by: Admin: 04/10/19 20:43 Dose: Not Given Documented by: Admin: 04/10/19 13:13 Dose: Not Given Documented by: Admin: 04/10/19 05:55 Dose: Not Given Documented by: Admin: 04/09/19 20:52 Dose: 10 ml Documented by: Admin: 04/09/19 15:59 Dose: 10 ml Documented by: Admin: 04/09/19 05:10 Dose: Not Given Documented by: Admin: 04/08/19 20:22 Dose: Not Given Documented by: Admin: 04/08/19 14:03 Dose: Not Given Documented by: TORIBIO Sodium Chloride (Saline Flush) 10 ml IV Q8 WINNIE Last Admin: 04/13/19 05:16 Dose: 10 ml Documented by: Admin: 04/12/19 20:40 Dose: 10 ml Documented by: Admin: 04/12/19 12:48 Dose: 10 ml Documented by: [email or web address] Admin: 04/12/19 05:17 Dose: 10 ml Documented by: Admin: 04/11/19 20:14 Dose: 10 ml Documented by: Admin: 04/11/19 14:16 Dose: Not Given Documented by: Admin: 04/11/19 05:02 Dose: Not Given Documented by: Admin: 04/10/19 20:43 Dose: Not Given Documented by: Admin: 04/10/19 13:13 Dose: Not Given Documented by: MARY GRACE Admin: 04/10/19 06:12 Dose: Not Given Documented by: Admin: 04/09/19 20:52 Dose: Not Given Documented by: Admin: 04/09/19 16:01 Dose: Not Given Documented by: Admin: 04/09/19 05:10 Dose: Not Given Documented by: Admin: 04/08/19 20:22 Dose: Not Given Documented by: Admin: 04/08/19 14:04 Dose: Not Given Documented by: TORIBIO Shift Summary 04/13/19 03:07 Shift Summary by Haley Duarte 78 year old female here for segmental colectomy. pt is alert and oriented flat affect. able to make needs known. hx depression, diabetes, DVT, htn. slept most of the shift. Has ATR wedges and sheet to assist with turning. Hernandez cath draining to gravity QS yellow urine. saline locked . receiving Zosyn every 6 hrs. sats 90-93 on RA. Abd incision with darshan and tegaderm, colostomy bag to LLQ with small amount of stool. EVIN's x2 to the RLQ. up with 1 person assist, FWW. working with PT. pleasant and cooperative with care. d/c to [facility] this am. Initialized on 04/13/19 03:07 - END OF NOTE
== END 2019-04-13 13:50 | disposition home or self-care (01) | DRG 330 ==
LOC: MEDSUR 05:04 → EDSTATUS 07:30 → ICU 14:02 → MEDSUR 04-08 10:50
PROVIDERS: ADMIT Family Medicine Adult Medicine; ATTEND Family Medicine Adult Medicine

== ENCOUNTER 2019-04-13 23:13 | Observation (INO) ==
[2019-04-13] MEDS ORDERED: LACTATED RINGERS 1,000 ML IV ONE (23:45)
[2019-04-13] MEDS ORDERED: ACETAMINOPHEN 325 MG TABLET PO ONE (23:52)
--- NOTE | 2019-04-13 23:57 | Emergency Department Note ---
Fever HPI - General Chief Complaint: Fever Stated Complaint: fever Time Seen by Provider: 04/13/19 23:36 Source: patient, EMS Mode of arrival: EMS Limitations: no limitations - History of Present Illness HPI Narrative: Patient discharged to the long term facility today from [facility]. Had been hospitalized since the of april and scheduled have a colostomy takedown however the procedure was altered in the sense that they were unable to anastomose the colon secondary to a lot of inflammatory changes of the sigmoid colon. Infected part of the sigmoid was resected down to healthy tissue in the rectum. She had ileus postoperatively but then her diet was slowly advanced. Discharged from the hospital today. Now has developed a fever, feels a little bit short of breath, denies abdominal pain, denies cough denies urinary symptoms although she is incontinent of urine. MD complaint: fever, malaise - Related Data Home Medications Medication Instructions Recorded Confirmed Blood-Glucose Meter [Contour] 1 each .ROUTE .MEDSUPPLY 10/23/18 03/27/19 Lancets 1 each .ROUTE .MEDSUPPLY 10/23/18 03/27/19 Saccharomyces boulardii 250 mg 250 mg PO BID 12/06/18 04/05/19 capsule Doxepin [Sinequan] 10 mg PO QHS 03/30/19 04/08/19 Empagliflozin [Jardiance] 25 mg PO DAILY 03/30/19 04/05/19 Warfarin Sodium 3 mg PO QDAY 03/30/19 04/05/19 oxyCODONE [OxyCONTIN] 10 mg PO Q4 04/13/19 04/13/19 Previous Rx's Medication Instructions Recorded blood sugar diagnostic strips 1 strip MISCELLANE .daily #100 08/26/18 strip Depends #1 ea 01/25/19 nystatin-triamcinolone 100,000 1 applic TOPICAL BID #60 g 03/13/19 unit/g-0.1 % topical cream Butalb/Acetaminophen/Caffeine 1 - 2 cap PO DAILYP PRN #30 cap 04/13/19 [Pqtfxd-Jxjnyfnx-Ifus 50-300-40] oxyCODONE HCL [Roxicodone] 10 mg PO Q4HP PRN #30 tab 04/13/19 Allergies Allergy/AdvReac Type Severity Reaction Status Date / Time NSAIDS (Non-Steroidal AdvReac Intermediate Verified 04/13/19 23:36 Anti-Inflamma tramadol AdvReac Intermediate Verified 04/13/19 23:36 codeine AdvReac Mild Agitated Verified 04/13/19 23:35 Review of Systems All systems ED: reviewed and negative except as stated. Constitutional: Reports: fever, chills, weakness Cardiovascular: Denies: chest pain, palpitations Respiratory: Reports: shortness of breath Gastrointestinal: Reports: nausea, other (decreased stool output in the colostomy bag) Fever PMH - Past Medical History Attestation: Yes: The following information was validated with the patient. Medical history: Reports: arthritis, chronic anticoagulation, COPD, hype rlipidemia, hypertension, renal disease Surgical history ED: Reports: colectomy, colostomy, orthopedic, other, other (status post sigmoidectomy.) - Social History smoking status: Former smoker Physical Exam Limitations: no limitations General appearance: alert, in distress Head: atraumatic, normocephalic Eye: Present: normal appearance, PERRL, EOMI. Absent: conjunctival injection ENT: Present: normal exam, normal oropharynx, mucous membranes moist, normal external ear exam Neck: Present: normal inspection, full ROM. Absent: tenderness, meningismus Chest: Present: normal inspection. Absent: tenderness Respiratory: Present: rales/crackles, accessory muscle use Cardiovascular: Present: regular rate, normal rhythm, normal heart sounds Abdominal: Present: soft, distention, tenderness, guarding, rebound, normal bowel sounds, scar, other (slight bit of erythema to the incision in the midline. Also colostomy left lower quadrant with dark stool.). Absent: rigid ity Extremities: Present: normal inspection, pedal edema Back: Present: normal inspection Neurological: Present: alert, oriented X3 Psychiatric: Present: normal affect Skin: Present: warm, dry, diaphoretic Course Vital Signs Temperature 101.5 F H 04/13/19 23:15 Pulse Rate 102 H 04/13/19 23:15 Respiratory Rate 18 04/13/19 23:15 Blood Pressure 158/80 04/13/19 23:15 Pulse Oximetry (%) 87 L 04/13/19 23:15 Temperature 102.0 F H 04/13/19 23:58 Pulse Rate 100 H 04/13/19 23:58 Respiratory Rate 19 04/14/19 00:01 Blood Pressure 150/79 04/14/19 00:01 Pulse Oximetry (%) 96 04/13/19 23:58 Fever - MDM Narrative Medical decision making narrative: At this point she has a normal white blood cell count, asked x-ray showing density left lower lobe however did be hiatal hernia, difficult to evaluate with a single view chest x-ray. Discussed her situation with Dr. Blount and we will readmit her to the hospital, pending further workup. At this point we will keep her on Tylenol when necessary, also collect stool for C. difficile. Dr. Blount will see her in the morning up. IV fluids ordered. Also breathing treatments to help with her previous history of COPD as she is at risk for pneumonia. Final diagnosis fever after recent bowel surgery. - Lab Data Lab results reviewed: Yes I reviewed the patient's lab results. Result diagrams: 04/13/19 23:26 04/13/19 23:26 Lab Results 04/13/19 04/13/19 04/13/19 Range/Units 23:26 23:26 23:26 WBC 9.4 (4.5-11.0) K/mcL RBC 3.77 L (4.00-5.20) M/mcL Hgb 10.1 L (12.0-15.0) g/dL Hct 31.4 L (36.0-48.0) % MCV 83.3 (80.0-100.0) fL MCH 26.8 (26.0-34.0) pg MCHC 32.2 (31.0-36.0) g/dL RDW 16.2 H (11.5-14.5) % Plt Count 311 (140-440) K/mcL MPV 8.9 (7.4-10.4) fL Total Counted 100 Seg Neutrophils % 69 (38-78) % Band Neutrophils % 2 (0-10) % Lymphocytes % 20 (15-49) % Monocytes % (Manual) 3 (1-12) % Eosinophils % (Manual) 6 (0-7) % Platelet Estimate Normal (NORMAL) RBC Morphology Abnorm A (NORMAL) Anisocytosis 1+ A (NONE SEEN) POC PT (11.9-14.5) sec POC INR (0.9-1.2) VBG Lactic Acid 1.8 (0.5-2.0) mmol/L Sodium 133 (133-145) mmol/L Potassium 3.4 (3.3-5.1) mmol/L Chloride 96 (96-108) mmol/L Carbon Dioxide 24 (22-30) mmol/L Anion Gap 13.0 (8-16) BUN 5 L (8-23) mg/dl Creatinine 0.8 (0.6-1.1) mg/dl GFR Calculation 71 Glucose 157 H (70-105) mg/dL Calcium 8.5 L (8.6-10.4) mg/dl Total Bilirubin 0.4 (0.0-1.0) mg/dL AST 11 (0-37) U/l ALT 7 (0-40) U/l Alkaline Phosphatase 58 (39-117) U/L C-Reactive Protein (0.0-0.8) mg/dl Total Protein 6.2 (5.9-8.4) gm/dL Albumin 3.0 L (3.2-5.2) gm/dL Globulin 3.2 (2.2-3.7) gm/dL Albumin/Globulin Ratio 0.9 L (1.0-2.3) Urine Color Urine Appearance Urine pH (5.0-9.0) Ur Specific [place] (1.000-1.035) Urine Protein (NEG) mg/dL Urine Glucose (UA) (NEG) mg/dL Urine Ketones (NEG) mg/dL Urine Occult Blood (<0.03) mg/dL Urine Nitrate (NEG) Urine Bilirubin (NEG) mg/dL Urine Urobilinogen (NEG) mg/dL Ur Leukocyte Esterase (NEG) /uL Urine RBC (0-1) /hpf Urine WBC (0-4) /hpf Ur Squamous Epith Cells (0-4) /hpf Urine Bacteria (0) /hpf Hyaline Casts (0-2) /lpf Urine Mucus (0) /hpf Urine Yeast (Budding) (0) /hpf Ur Culture Indicated? 04/13/19 04/14/19 04/14/19 Range/Units 23:26 00:00 00:18 WBC (4.5-11.0) K/mcL RBC (4.00-5.20) M/mcL Hgb (12.0-15.0) g/dL Hct (36.0-48.0) % MCV (80.0-100.0) fL MCH (26.0-34.0) pg MCHC (31.0-36.0) g/dL RDW (11.5-14.5) % Plt Count (140-440) K/mcL MPV (7.4-10.4) fL Total Counted Seg Neutrophils % (38-78) % Band Neutrophils % (0-10) % Lymphocytes % (15-49) % Monocytes % (Manual) (1-12) % Eosinophils % (Manual) (0-7) % Platelet Estimate (NORMAL) RBC Morphology (NORMAL) Anisocytosis (NONE SEEN) POC PT 12.9 (11.9-14.5) sec POC INR 1.1 (0.9-1.2) VBG Lactic Acid (0.5-2.0) mmol/L Sodium (133-145) mmol/L Potassium (3.3-5.1) mmol/L Chloride (96-108) mmol/L Carbon Dioxide (22-30) mmol/L Anion Gap (8-16) BUN (8-23) mg/dl Creatinine (0.6-1.1) mg/dl GFR Calculation Glucose (70-105) mg/dL Calcium (8.6-10.4) mg/dl Total Bilirubin (0.0-1.0) mg/dL AST (0-37) U/l ALT (0-40) U/l Alkaline Phosphatase (39-117) U/L C-Reactive Protein 10.6 H (0.0-0.8) mg/dl Total Protein (5.9-8.4) gm/dL Albumin (3.2-5.2) gm/dL Globulin (2.2-3.7) gm/dL Albumin/Globulin Ratio (1.0-2.3) Urine Color Yellow Urine Appearance Clear Urine pH 7.0 (5.0-9.0) Ur Specific [place] 1.014 (1.000-1.035) Urine Protein Neg (NEG) mg/dL Urine Glucose (UA) 50 A (NEG) mg/dL Urine Ketones Neg (NEG) mg/dL Urine Occult Blood Neg (<0.03) mg/dL Urine Nitrate Neg (NEG) Urine Bilirubin Neg (NEG) mg/dL Urine Urobilinogen Neg (NEG) mg/dL Ur Leukocyte Esterase 25 A (NEG) /uL Urine RBC 1 (0-1) /hpf Urine WBC 9 H (0-4) /hpf Ur Squamous Epith Cells 0 (0-4) /hpf Urine Bacteria 0 (0) /hpf Hyaline Casts 1 (0-2) /lpf Urine Mucus Few (0) /hpf Urine Yeast (Budding) Few A (0) /hpf Ur Culture Indicated? Yes - Radiology Data Radiology results reviewed: Yes I reviewed the patient's radiology results. Disposition Pt seen by [employer]/PA only: No Clinical Impression: Fever of unknown origin Disposition: Xfer As Inpt ([facility]) Condition: Fair Referrals: Marcus Russo MD, FAAFP [Primary Care Provider] -
[2019-04-14 00:10] LABS: Hematocrit 31.4 % (36.0-48.0); Hemoglobin 10.1 g/dL (12.0-15.0); Mean Cell Volume 83.3 fL (80.0-100.0); Mean Corpuscular HGB Conc 32.2 g/dL (31.0-36.0); Mean Platelet Volume 8.9 fL (7.4-10.4); Platelet Count 311 K/mcL (140-440); RBC 3.77 M/mcL (4.00-5.20); Red Cell Distribution Width 16.2 % (11.5-14.5); WBC 9.4 K/mcL (4.5-11.0)
[2019-04-14 00:31] LABS: ALT/SGPT 7 U/l (0-40); AST/SGOT 11 U/l (0-37); Albumin/Globulin Ratio 0.9 (1.0-2.3); Alkaline Phosphatase 58 U/L (39-117); Bilirubin,Total 0.4 mg/dL (0.0-1.0); Blood Urea Nitrogen 5 mg/dl (8-23); Calcium 8.5 mg/dl (8.6-10.4); Carbon Dioxide 24 mmol/L (22-30); Chloride 96 mmol/L (96-108); Globulin 3.2 gm/dL (2.2-3.7); Glomerular Filtration Rate 71; Glucose 157 mg/dL (70-105)
[2019-04-14 00:41] LABS: Anisocytosis 1+ (NONE SEEN); Band Neutrophils % 2 % (0-10); Eosinophils % (Manual) 6 % (0-7); Lymphocytes % 20 % (15-49); Monocytes % (Manual) 3 % (1-12); Platelet Estimate NORMAL (NORMAL); RBC Morphology ABNORM (NORMAL); Segmented Neutrophils % 69 % (38-78)
[2019-04-14 00:47] LABS: POC INR 1.1 (0.9-1.2); POC Pro Time 12.9 sec (11.9-14.5)
[2019-04-14 01:17] LABS: Appearance,Urine CLEAR; Bacteria,Urine 0 /hpf (0); Bilirubin,Urine NEG (NEG); Color,Urine YELLOW; Culture Indicated,Urine YES; Glucose,Urine (UA) 50 mg/dL (NEG); Ketones,Urine NEG (NEG); Leukocyte Esterase,Urine 25 /uL (NEG); Mucus,Urine FEW /hpf (0); Nitrate,Urine NEG (NEG); Protein,Urine NEG (NEG); Specific Gravity,Urine 1.014 (1.000-1.035); Urine Blood NEG mg/dL (<0.03); Urine Budding Yeast FEW /hpf (0); Urine Hyaline Cast 1 /lpf (0-2); Urine RBC 1 /hpf (0-1); Urine Squamous Epithelial Cell 0 /hpf (0-4); Urine WBC 9 /hpf (0-4); Urobilinogen,Urine NEG (NEG)
[2019-04-14] MEDS ORDERED: ONDANSETRON 4 MG/2 ML VIAL IV PRN (01:40)
[2019-04-14] MEDS ORDERED: ACETAMINOPHEN 325 MG TABLET PO PRN (01:40)
[2019-04-14] MEDS ORDERED: IPRATROPIUM/ALBUTEROL 3 ML AMPUL.NEB NEB PRN (01:43)
[2019-04-14] MEDS ORDERED: 0.45 % SODIUM CHLORIDE 1,000 ML IV SCH (01:45)
[2019-04-14] MEDS ORDERED: LACTATED RINGERS 1,000 ML IV SCH (02:00)
--- NOTE | 2019-04-14 06:20 | XRay Report ---
CLINICAL INFORMATION: fever, low sat COMPARISON: 04/05/2019 FINDINGS: Moderate cardiomegaly is unchanged. Mediastinum and pulmonary vessels are normal. Small patchy bibasilar infiltrates and/or atelectasis have developed. No definite effusions IMPRESSION: Small patchy bibasilar infiltrates and/or atelectasis. Interpreted and Authenticated by: Ronald Kaur 04/14/19
[2019-04-14] MEDS ORDERED: HYDROmorphone 2 MG/ML VIAL IV PRN (09:27)
[2019-04-14] MEDS ORDERED: oxyCODONE HCL 5 MG TABLET PO PRN (09:35)
[2019-04-14] MEDS ORDERED: BUTALB/ACETAMINOPHEN/CAFFEINE 1 TABLET PO PRN (09:37)
--- NOTE | 2019-04-14 11:50 | General Surg History&Physical ---
History of Present Illness Patient information: Note initiated : 04/14/19 at 11:48 am Service Date, if different from initiated Date: [] Patient: Brit Alonzo 78 y/o F admitted on 04/14/19 for fever. Chief Complaint: [] HPI: Ms. Alonzo is a 78 [facility] old F [facility] because of fever. This is unknown as to what the exact fever was but she did have a temperature of 102 in our emergency room. Her only complaint was pain in her left shoulder. She did not have any cough or shortness of breath. She did not have any chills sweats. She did not have any change in her abdominal findings. She had minimal soreness of her incision stoma was working well. She denies dysuria frequency urgency. She did have some urinary hesitancy and intermittent incontinence probably due to overflow incontinence. Hernandez catheter was inserted and she had a few yesenia yeast with slight elevation and leukocyte esterase but no bacteria and no white cells in her urine. At this time she has no complaints except for shoulder pain. She states that she feels as well as she did when she was transferred over. Her chest x-ray shows slight minimal basilar atelectasis but this was present on previous chest x-rays on 05 April and 13 April with absolutely no change. It is felt that the patient does not have any clinical entity that requires inpatient treatment and if we can arrange it logistically she should [facility] with monitoring of her temperature and treatment of her elevated temperature with Tylenol. since there is minimal contamination of her urine I do not think she needs to have any more antibiotics. She may benefit from continued [facility]. Review of Systems All systems PM: reviewed and no additional remarkable complaints except as stated (negative except as noted above) - Gastrointestinal no bloating, no dysphagia, no heartburn, no nausea, no vomiting - Genitourinary Genitourinary: urinary frequency, urinary hesitancy, urinary incontinence - Musculoskeletal arthralgias, stiffness left: shoulder pain, shoulder stiffness - Integumentary no pruritus, no rash - Neurological no confusion, no headache(s) - Psychiatric abnormal sleep pattern, anxiety - Hematologic/Lymphatic no easy bleeding, no easy bruising, no lymphadenopathy - Allergic/Immunologic no tongue swelling, no throat swelling, no uticaria, no wheezing, no lip swelling Past History Past medical history: History of diverticulitis Diabetes 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 long-term use of insulin Positive factor V Leiden Essential hypertension Chronic obstructive lung disease Degenerative arthritis Past surgical history: Total knee arthroplasty Total abdominal hysterectomy bilateral salpingo-oophorectomy Left rotator cuff repair Incisional hernia repair Lumbar back surgery 2 Left knee reoperation and arthroplasty 2016 Laparotomy with drainage of pelvic abscess similar colostomy with Rowe's Exploratory laparotomy with sigmoid resection and Luciano Bilateral cataract surgery Past family history: Diabetes mellitus Coronary artery disease Stroke Past social history: Former smoker Does not use alcohol Use drugs Medications and Allergies Home Medications Medication Instructions Recorded Confirmed Type blood sugar diagnostic 1 strip MISCELLANE .daily #100 08/26/18 04/14/19 Rx strip Blood-Glucose Meter [Contour] 1 each .ROUTE .MEDSUPPLY 10/23/18 04/14/19 History Lancets 1 each .ROUTE .MEDSUPPLY 10/23/18 04/14/19 History Saccharomyces boulardii 250 mg 250 mg PO BID 12/06/18 04/14/19 History capsule Depends #1 ea 01/25/19 03/27/19 Rx nystatin-triamcinolone 100,000 1 applic TOPICAL BID #60 g 03/13/19 04/14/19 Rx unit/g-0.1 % topical cream Doxepin [Sinequan] 10 mg PO QHS 03/30/19 04/14/19 History Empagliflozin [Jardiance] 25 mg PO DAILY 03/30/19 04/14/19 History Warfarin Sodium 3 mg PO QDAY 03/30/19 04/14/19 History Butalb/Acetaminophen/Caffeine 1 - 2 cap PO DAILYP PRN #30 cap 04/13/19 04/14/19 Rx [Pzkaqe-Kkimkioq-Txnk 50-300-40] oxyCODONE [OxyCONTIN] 10 mg PO Q4 PRN 04/13/19 04/14/19 History Biotin Plus Keratin Tablet 1 tab DAILY 04/14/19 04/14/19 History Glucagon Emergency Kit 1 mg Q15MIN PRN 04/14/19 04/14/19 History Allergies Allergy/AdvReac Type Severity Reaction Status Date / Time NSAIDS (Non-Steroidal AdvReac Intermediate Verified 04/13/19 23:36 Anti-Inflamma tramadol AdvReac Intermediate Verified 09/12/19 23:36 codeine AdvReac Mild Agitated Verified 04/13/19 23:35 Exam Temp Pulse Resp BP Pulse Ox 98.6 F 75 20 137/73 92 04/14/19 11:28 04/14/19 02:46 04/14/19 11:28 04/14/19 11:28 04/14/19 11:28 - General physical appearance well developed, well nourished, no distress, no pain - Eyes PERRL, normal ocular movement. negative: icteric - ENT normal pinna, normal nares, normal mucosa, no hearing loss, no congestion - Head Head exam IM: Present: atraumatic, normal inspection, normocephalic - Neck no masses, no bruits, trachea midline, no lymphadenopathy, no venous distension - Cardiovascular Cardiovascular exam IM: Present: normal rate and rhythm, RRR, +S1, +S2. Absent: JVD, tachycardia - Respiratory normal expansion, normal respiratory effort, clear to auscultation (lungs are totally clear without rales rhonchi wheezes or decreased breath sounds) - Abdomen Abdomen: Present: soft, non tender, bowel sounds, surgical scars ( healing unremarkable midline incision stoma left lower quadrant which is functioning normally; drain right lower quadrant with serosanguineous drainage) Hernia: Present: none - Genitourinary Present: normal external genitalia - Integumentary Present: no rash, no growths, no abnormal pigmentation - Neurologic Present: normal coordination, normal sensation - Musculoskeletal Present: normal gait, normal posture - Psychiatric Present: oriented to time, oriented to person, oriented to place, speech is normal, memory intact Assessment and Plan (1) Deficient knowledge of fever of unknown origin Patient is clinically asymptomatic and has not had any elevation of fever since hospitalization. Her white blood count is normal. She does not have any findings that would require inpatient treatment and [facility]. Her chest x-ray changes are chronic and were present on her hospitalization 05 April. Her minimal urinary findings are related to vaginal yeast infection and not to UTI due to other sources. She does not have any bacteria in her urine. Her abdominal wall is totally unremarkable and her total white count is normal. Status: Acute (2) Colonic diverticular abscess Status: Acute (3) Chronic obstructive pulmonary disease Status: Chronic Comment: Continued tobacco use and probable chronic bronchitiis. Hx of positive PPD at age 18; last chest x-ray 08/2012. Qualifiers: COPD type: emphysema Emphysema type: panlobular Qualified Code(s): J43.1 - Panlobular emphysema (4) Diabetes mellitus Status: Chronic Comment: since 07/2017. started on Metformin 500mg daily Qualifiers: Diabetes mellitus type: type 2 Diabetes mellitus group home insulin use: without group home use Diabetes mellitus complication status: with neurologic complications Diabetes mellitus complication detail: with polyneuropathy Qualified Code(s): E11.42 - Type 2 diabetes mellitus with diabetic polyneuropathy (5) Essential hypertension Status: Chronic Comment: Chronically abnormal ECG; cardiolite normal in 2006. (6) Factor V Leiden Status: Chronic Comment: Hx of recurrent with positive Factor V Leiden-chronic anticoagulation. (7) Type 2 diabetes mellitus, without long-term current use of insulin Status: Chronic Qualifiers: Diabetes mellitus complication status: with hyperglycemia Qualified Code(s): E11.65 - Type 2 diabetes mellitus with hyperglycemia
[2019-04-14] MEDS ORDERED: WARFARIN 3 MG TABLET PO SCH (14:00)
[2019-04-14] MEDS ORDERED: DOXEPIN 10 MG CAPSULE PO SCH (21:00)
[2019-04-14] MEDS ORDERED: LACTOBACILLUS 1 CAPSULE PO SCH (21:00)
== END 2019-04-14 13:55 ==
LOC: MEDSUR 23:13 → ED 23:13 → MEDSUR 04-14 02:40
PROVIDERS: ADMIT Family Medicine Adult Medicine; ATTEND Family Medicine Adult Medicine